=== PATIENT | female | born 1960 | race Caucasian/White ===

== ENCOUNTER 2021-05-25 13:17 | Outpatient (CLI) | payer MEDICARE, SELFPAY ==
--- NOTE | ~2021-05-25 | MM_ITS ---
EXAMINATION: MM screening jenni BI w winsome HISTORY: Screening mammogram TECHNIQUE: Craniocaudal and mediolateral oblique 3-D tomosynthesis images were obtained and synthetic 2-D images were generated. CAD analysis was submitted and interpreted. COMPARISON: No prior mammogram is available for comparison at this institution. BREAST PARENCHYMAL COMPOSITION: The breasts are almost entirely fatty. FINDINGS: There is no evidence of suspicious mass, calcification, or architectural distortion to sugg est malignancy in either breast. There has been no suspicious interval change. IMPRESSION: 1. No mammographic evidence of malignancy. 2. Recommend routine screening mammography in one year. BI-RADS Category 1: Negative Reviewed, dictated and finalized at location A.
== END 2021-05-25 13:18 | disposition home or self-care (01) ==
LOC: ANHIMG 13:21
PROVIDERS: PCP Emergency Medicine; Visit Provider Emergency Medicine
DX: Z12.31 Encounter for screening mammogram for malignant neoplasm of breast (principal)
CPT/HCPCS: 77063; 77067

== ENCOUNTER 2022-04-19 13:34 | Outpatient (CLI) | payer MEDICARE, SELFPAY ==
--- NOTE | ~2022-04-19 | DEXA_ITS ---
Bone Density Report Name: NAVEEN SANDERS Age: 61 Sex: Female Ethnicity: White Date of : 1960 Indication: osteopenia; prior fracture; hysterectomy; postmenopausal Referring Provider: JACKELYN CADENA Study: Bone densitometry was performed. Exam Date: April 19, 2022 Accession number: [id number] Bone Density: Region BMD T-score Z-score Classification AP Spine(L1, L2, L3) 0.852 -1.5 -0.2 Osteopenia Femoral Neck (Left) 0.710 -1.3 0.0 Osteopenia Total Hip (Left) 0.766 -1.4 -0.5 Osteopenia Femoral Neck (Right) 0.750 -0.9 0.4 Normal Total Hip (Right) 0.765 -1.5 -0.5 Osteopenia Total Hip Mean 0.765 -1.5 -0.5 Osteopenia World Health Organization criteria for BMD impression classify patients as: Normal (T-score at or above -1.0), Osteopenia (T-score between -1.0 and -2.5), or Osteoporosis (T-score at or below -2.5). 10-year Fracture Risk(1): Major Osteoporotic Fracture 13% Hip Fracture 0.9% Reported Risk Factors: [place] (), Neck BMD=0.710, BMI=26.1, previous fracture (1) FRAX(R) Version 3.08. Fracture probability calculated for an untreated patient. Fracture probability may be lower if the patient has received treatment. Previous Exams: Region Exam Age BMD T-score BMD Change BMD Change Date g/cm2 vs Baseline vs Previous AP Spine (L1-L3) 04/19/2022 61 0.852 -1.5 -0.035 (-3.9%) -0.035 (-3.9%) 11/01/2015 55 0.886 -1.2 Total Hip(Left) 04/19/2022 61 0.766 -1.4 -0.103 (-11.9% -0.103 (-11.9% 11/01/2015 55 0.869 -0.6 Total Hip(Right) 04/19/2022 61 0.765 -1.5 -0.126 (-14.1% -0.126 (-14.1% 11/01/2015 55 0.890 -0.4 *Denotes significance at 95% confidence level, LSC for AP Spine = 0.022 g/cm2, LSC for Total Hip = 0.027 g/cm2 Clinical Information Provided by Patient: Has had a low trauma fracture Has used the following medications: Vitamin D, Calcium Has the following medical conditions: Hysterectomy Patient maximum height was 62.5 Menopause Age: 33 Drinks caffeinated beverages Onset of menses at age 16 Number of children 3 Impression: The patient has low bone mass, based on the Total Spine T-score. The patient has an estimated ten-year risk of hip fracture of 0.9% and an estimated ten-year risk of major fracture of 13%, based on the WHO FRAX algorithm. The patient has risk factors, including: previous fracture. The BMD for the AP Spine (L1-L3) decreased, changing by -3.9% since the last DXA exam. The BMD for t
== END 2022-04-19 13:35 | disposition home or self-care (01) ==
PROVIDERS: PCP Emergency Medicine; Visit Provider Emergency Medicine
DX: M85.851 Other specified disorders of bone density and structure, right thigh (principal); M85.852 Other specified disorders of bone density and structure, left thigh; M85.88 Other specified disorders of bone density and structure, other site
CPT/HCPCS: 77080

== ENCOUNTER 2022-09-04 09:26 | Outpatient (CLI) | payer MEDICARE, SELFPAY ==
--- NOTE | ~2022-09-04 | CT_ITS ---
EXAMINATION: CT lung screening DATE: 09/04/2022 10:08 INDICATION: HX OF NICOTINE DEPENDENCE TECHNIQUE: Computed tomography (CT) of the chest was performed without intravenous contrast. Addition al 3D reconstructions utilizing coronal maximum intensity projection (MIP) were performed. Automated exposure control and iterative reconstruction technique were employed. The dose-length product was 60 .48 mGy-cm. COMPARISON: None FINDINGS: Mild emphysema. There is peripheral irregular septal line thickening with mild associated groundglass opacity no evident more nodular opacities or pleural effusion. Heart size is normal. No pericardial effusion. In both lungs most prominent in the right upper and right lower lobes. No suspicious pulmon tristan nodules, pleural effusion or pneumothorax. Heart size is normal. Ectatic ascending thoracic aorta measuring up to 3.8 cm maximal diameter. No pathologically enlarged thoracic lymphadenopathy. Gallbl adder is nonvisualized and likely surgically absent. Visualized upper abdomen is otherwise unremarkab le. Mild thoracic spondylosis. IMPRESSION: 1. Lung-RADS category 1: Negative. Continue annual screening with noncontrast low-dose chest CT in 12 months. 2. Mild emphysema with mild peripheral fine reticular and groundglass opacities which could represent atelectasis/scarring, chronic interstitial fibrosis with either UIP or NSIP pattern or mild pulmonar y edema. Reviewed, dictated and finalized at location A. IMPRESSION: 1. Lung-RADS category 1: Negative. Continue annual screening with noncontrast l ow-dose chest CT in 12 months. 2. Mild emphysema with mild peripheral fine reticular and groundglass opacities which could represent atelectasis/scarring, chronic interstitial fibrosis with either UIP or NSIP pattern or mild pulmonary edema.
== END 2022-09-04 09:27 | disposition home or self-care (01) ==
PROVIDERS: PCP Emergency Medicine; Visit Provider Emergency Medicine
DX: Z12.2 Encounter for screening for malignant neoplasm of respiratory organs (principal); Z87.891 Personal history of nicotine dependence; J43.9 Emphysema, unspecified
CPT/HCPCS: 71271

== ENCOUNTER 2022-12-14 14:15 | Outpatient (CLI) | payer MEDICARE, SELFPAY ==
[2022-12-14 14:27] LABS: Basophils Absolute Auto 0.1 K/mm3 (0.0-0.1); Basophils Percent Auto 1.3 % (0.2-1.2); Eosinophils Absolute Auto 0.6 K/mm3 (0-0.3); Eosinophils Percent Auto 7.1 % (0-4.4); Hemoglobin 12.7 g/dL (12.0-15.0); Immature Granulocyte Absolute 0.02 K/mm3 (0.00-0.031); Immature Granulocyte Percent A 0.2 % (0-0.5); Lymphocytes Percent Auto 30.1 % (18.3-44.2); Mean Corpuscular HGB Conc 32.6 g/dl (32-36); Mean Corpuscular Hemoglobin 34.4 pg (26-34); Mean Corpuscular Volume 105.7 fl (80-100); Mean Platelet Volume 9.8 fl (7.4-10.4); Monocytes Absolute Auto 0.7 K/mm3 (0.1-0.6); Monocytes Percent Auto 8.2 % (2.6-8.5); Neutrophils Absolute Auto 4.6 K/mm3 (1.3-6.7); Neutrophils Percent Auto 53.1 % (45.5-73.1); Platelet Count Result 329 k/mm3 (150-375); Red Blood Count 3.69 M/mm3 (4.2-5.4); Red Cell Distribution Width 13.1 % (11.5-14.5); White Blood Count 8.7 K/mm3 (4.5-10.0)
[2022-12-14 15:54] LABS: Alanine Aminotransferase 28 U/L (6-35); Albumin Level 4.6 g/dL (3.5-5.1); Alkaline Phosphatase 150 U/L (38-126); Anion Gap 7 mmol/L (8-16); Aspartate Amino Transferase 38 U/L (14-36); Bilirubin,Total 0.4 mg/dL (0.2-1.3); Blood Urea Nitrogen 10 mg/dL (7-17); Calcium 9.7 mg/dL (8.4-10.2); Carbon Dioxide 33 mmol/L (22-30); Chloride 101 mmol/L (98-107); Estimated Glomerular Filt Rate > 60; Glucose 109 mg/dL (65-110); Potassium 4.3 mmol/L (3.4-5.0); Sodium 141 mmol/L (137-145)
[2022-12-14 16:25] LABS: Thyroid Stimulating Hormone 0.562 uIU/mL (0.465-4.680)
[2022-12-14 17:18] LABS: Folic Acid > 20.0 ng/mL (2.76->20)
[2022-12-17 10:51] LABS: Methylmalonic Acid 60 nmol/L (87-318)
== END 2022-12-14 14:16 | disposition home or self-care (01) ==
LOC: ANHLAB 14:16
PROVIDERS: PCP Emergency Medicine; Visit Provider Internal Medicine Hematology & Oncology
DX: D75.89 Other specified diseases of blood and blood-forming organs (principal)
CPT/HCPCS: 36415; 80053; 82607; 82746; 83921; 84443; 85025

== ENCOUNTER 2022-12-22 07:17 | Outpatient (CLI) | payer MEDICARE, SELFPAY ==
--- NOTE | ~2022-12-22 | US_ITS ---
Abdominal Sonogram: Real-time sonographic imaging of the abdomen was performed. Clinical History: Macrocytosis Findings: The liver appears normal with no evidence of mass lesion or bile duct dilatation. Main por jak vein demonstrates normal direction of flow. The spleen is normal in size without evidence of foca l lesion. The gallbladder is absent, compatible prior cholecystectomy. The common bile duct measures 8 mm. The visualized pancreas, aorta, and IVC are unremarkable. The right kidney measures 9.7 cm i n length and the left kidney measures 10.5 cm. There is no hydronephrosis or renal calculus. Impression: Mildly dilated common bile duct, possibly related to prior cholecystectomy. No other significant findings. Reviewed, dictated and finalized at location . OYEE COMMUNICATIONS SPECIALIST Impression: Mildly dilated common bile duct, possibly related to prior cholecystectomy. No other significant findings.
== END 2022-12-22 07:18 | disposition home or self-care (01) ==
PROVIDERS: PCP Emergency Medicine; Visit Provider Internal Medicine Hematology & Oncology
DX: D75.89 Other specified diseases of blood and blood-forming organs (principal)
CPT/HCPCS: 76700

== ENCOUNTER 2022-12-28 16:05 | Outpatient (CLI) | payer MEDICARE, SELFPAY ==
--- NOTE | ~2022-12-28 | MM_ITS ---
EXAMINATION: MM screening jenni BI w winsome HISTORY: Screening mammogram TECHNIQUE: Craniocaudal and mediolateral oblique 3-D tomosynthesis images were obtained and synthetic 2-D images were generated. CAD analysis was submitted and interpreted. COMPARISON: 05/25/2021 bilateral screening mammogram BREAST PARENCHYMAL COMPOSITION: The breasts are almost entirely fatty. FINDINGS: There is no evidence of suspicious mass, calcification, or architectural distortion to sugg est malignancy in either breast. There has been no suspicious interval change. IMPRESSION: 1. No mammographic evidence of malignancy. 2. Recommend routine screening mammography in one year. BI-RADS Category 1: Negative Reviewed, dictated and finalized at location A. ICAL SCHEDULER
== END 2022-12-28 16:06 | disposition home or self-care (01) ==
LOC: ANHIMG 16:08
PROVIDERS: PCP Emergency Medicine; Visit Provider Emergency Medicine
DX: Z12.31 Encounter for screening mammogram for malignant neoplasm of breast (principal)
CPT/HCPCS: 77063; 77067

== ENCOUNTER 2023-03-28 10:34 | Outpatient (CLI) | payer MEDICARE, SELFPAY ==
--- NOTE | ~2023-03-28 | XR_ITS ---
Right Hand Technique: PA, oblique, and lateral views were obtained. Clinical History: Pain Findings: Suspected nondisplaced impacted fracture at the proximal shaft of the fifth metacarpal. No other fracture or dislocation seen. Joint spaces are preserved. Soft tissues are unremarkable. Impression: Suspected nondisplaced transverse, impacted fracture of the proximal most shaft of the fifth metacarp al. Reviewed, dictated and finalized at location . Impression: Suspected nondisplaced transverse, impacted fracture of the proximal most shaft of the fifth metacarpal.
== END 2023-03-28 10:35 | disposition home or self-care (01) ==
LOC: ANHASCIMG 10:38
PROVIDERS: PCP Emergency Medicine; Visit Provider Emergency Medicine
DX: M25.531 Pain in right wrist (principal)
CPT/HCPCS: 73120

== ENCOUNTER 2023-10-27 10:53 | Outpatient (CLI) | payer MEDICARE, SELFPAY ==
--- NOTE | ~2023-10-27 | CT_ITS ---
CT Scan of the Chest without Contrast: Clinical Indication: Lung cancer screening, tobacco use Technique: Contiguous sections were acquired throughout the chest without intravenous contrast. Dose reduction technique was used on this scan by utilizing automated exposure control and iterative recon struction technique. The dose-length product (DLP) was 57.12 mGy-cm. COMPARISON: 09/04/2022 Findings: There is no evidence of any significant mediastinal, hilar or axillary lymphadenopathy. The mediastin al soft tissues appear normal. There is no evidence of pleural or pericardial effusion. There is stable chronic interstitial change lung worse than left, with peripheral distribution. There is associated biapical scarring. No distinct pulmonary nodule evident. Images through the upper abdomen reveal no abnormalities. Impression: Lung RADS 1: Negative. 12 month follow-up screening CT advised. Stable chronic pulmonary interstitial disease. Reviewed, dictated and finalized at [facility]. E SCALPER OPERATOR Impression: Lung RADS 1: Negative. 12 month follow-up screening CT advised. Stable chronic pulmonary interstitial disease.
== END 2023-10-27 10:54 | disposition home or self-care (01) ==
PROVIDERS: PCP Emergency Medicine; Visit Provider Emergency Medicine
DX: Z12.2 Encounter for screening for malignant neoplasm of respiratory organs (principal); Z87.891 Personal history of nicotine dependence
CPT/HCPCS: 71271

== ENCOUNTER 2024-01-14 09:31 | Outpatient (CLI) | payer MEDICARE, SELFPAY ==
--- NOTE | ~2024-01-14 | MM_ITS ---
EXAMINATION: MM screening jenni BI w winsome HISTORY: Screening mammogram TECHNIQUE: Craniocaudal and mediolateral oblique 3-D tomosynthesis images were obtained and synthetic 2-D images were generated. CAD analysis was submitted and interpreted. COMPARISON: 12/28/2022, 05/25/2021 BREAST PARENCHYMAL COMPOSITION:Not Dense. The breasts are almost entirely fatty FINDINGS: No suspicious mass, calcification, or architectural distortion are identified in either mitzy ast to suggest malignancy. There has been no suspicious interval change. IMPRESSION: No mammographic evidence of malignancy. Recommend routine screening mammography in one year. BI-RADS Category 1: Negative Reviewed, dictated and finalized at location . CIAL CLERK
== END 2024-01-14 09:32 | disposition home or self-care (01) ==
LOC: ANHIMG 09:34
PROVIDERS: PCP Emergency Medicine; Visit Provider Emergency Medicine
DX: Z12.31 Encounter for screening mammogram for malignant neoplasm of breast (principal)
CPT/HCPCS: 77063; 77067

== ENCOUNTER 2024-07-18 09:15 | Outpatient (CLI) | payer MEDICARE, MEDICAID, SELFPAY ==
--- NOTE | ~2024-07-18 | DEXA_ITS ---
Bone Density Report Name: NAVEEN SANDERS Age: 63 Sex: Female Ethnicity: White Date of : 1960 Indication: osteopenia; height loss; hysterectomy; Referring Provider: JACKELYN CADENA Study: Bone densitometry was performed. Exam Date: July 18, 2024 Accession number: [id number] Bone Density: Region BMD T-score Z-score Classification AP Spine(L1, L2, L4) 0.924 -1.0 0.5 Normal Femoral Neck (Left) 0.677 -1.6 -0.2 Osteopenia Total Hip (Left) 0.757 -1.5 -0.5 Osteopenia Femoral Neck (Right) 0.710 -1.2 0.1 Osteopenia Total Hip (Right) 0.746 -1.6 -0.6 Osteopenia Total Hip Mean 0.751 -1.6 -0.6 Osteopenia World Health Organization criteria for BMD impression classify patients as: Normal (T-score at or above -1.0), Osteopenia (T-score between -1.0 and -2.5), or Osteoporosis (T-score at or below -2.5). 10-year Fracture Risk(1): Major Osteoporotic Fracture 8.5% Hip Fracture 0.8% Reported Risk Factors: [place] (), Neck BMD=0.677, BMI=26.9 (1) FRAX(R) Version 3.08. Fracture probability calculated for an untreated patient. Fracture probability may be lower if the patient has received treatment. Previous Exams: Region Exam Age BMD T-score BMD Change BMD Change Date g/cm2 vs Baseline vs Previous AP Spine (L1-L2,L4) 07/18/2024 63 0.924 -1.0 -0.039 (-4.1%) -0.039 (-4.1%) 11/01/2015 55 0.963 -0.6 Total Hip(Left) 07/18/2024 63 0.757 -1.5 -0.112 (-12.9% -0.009 (-1.2%) 04/19/2022 61 0.766 -1.4 -0.103 (-11.9% -0.103 (-11.9% 11/01/2015 55 0.869 -0.6 Total Hip(Right) 07/18/2024 63 0.746 -1.6 -0.144 (-16.2% -0.019 (-2.5%) 04/19/2022 61 0.765 -1.5 -0.126 (-14.1% -0.126 (-14.1% 11/01/2015 55 0.890 -0.4 *Denotes significance at 95% confidence level, LSC for AP Spine = 0.022 g/cm2, LSC for Total Hip = 0.027 g/cm2 Clinical Information Provided by Patient: Has used the following medications: Vitamin D, Calcium Has the following medical conditions: Hysterectomy Patient maximum height was 64 Menopause Age: 33 No regular weight bearing exercise Drinks caffeinated beverages Onset of menses at age 16 Number of children 3 Impression: The patient has low bone mass, based on the Right Total Hip T-score. The patient has an estimated ten-year risk of hip fracture of 0.8% and an estimated ten-year risk of major fracture of 8.5%, based on the WHO FRAX algorithm. The BMD for the AP Spine (L1-L2,L4) decreased, karrie
== END 2024-07-18 09:16 | disposition home or self-care (01) ==
PROVIDERS: PCP Emergency Medicine; Visit Provider Emergency Medicine
DX: M85.89 Other specified disorders of bone density and structure, multiple sites (principal)
CPT/HCPCS: 77080

== ENCOUNTER 2025-04-20 00:58 | Day surgery (SDC) | payer MEDICARE, MEDICAID, SELFPAY ==
[2025-04-16 11:32] VITALS: BMI 26.9
--- OUTSIDE RECORDS SUMMARY | 2025-04-20 01:02 | XMS_ITS | Encounter Summary ---
Author Organization [facility] Address [address] [place] [address] Care Team Providers Care Intermodal Owner Operator Truck Driver Name Role Phone Dave Barrios MD Primary Care Provider [phone] Encounter Details Date Type Department Care Team (Late st Contact Info) Description 06/23/2024 Telephone [facility] - Cardiac Electronics Assembler [address] [place] [id number] Beverley Black MD [address] [place] [address] [place] [id number] Social History Tobacco Use Types Packs/Day Years Used Date Smoking Tobacco: Former Smokeless Tobacco: Never Alcohol Use Standard Drinks/Week Comments Not Currently 0 (1 standard drink = 0.6 oz pur e alcohol) occasionally AUDIT-C Answer Date Recorded Q1: How often do you have a drink containing alcohol? Never 06/23/2024 Q2: How many drinks containi ng alcohol do you have on a typical day when you are drinking? Patient does not drink Q3: How often do you have si x or more drinks on one occasion? 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 Never 06/23/2024 5:55 AM CDT Francesca John RN Q2: How many drinks containing alcohol do you have on a typical day when you are drinking? Patient does not drink 06/23/2024 5:55 AM Francesca Caceres RN Q3: How often do you have six or more drinks on one occasion? Never 06/23/2024 5:55 AM Francesca Caceres RN * Audit-C Score Answer Date of Assessment Author 0 06/23/2024 5:55 AM Francesca Caceres RN documented as of this encounter Plan of Treatment Not on file documented as of this encounter Visit Diagnoses Not on filedocumented in this encounter Care Teams Intermodal Owner Operator Truck Driver Relationship Specialty Start Date End Date Dave Barrios MD [address] [phone] PCP - General Family Medicine 11/29/15 documented as of this encounter
--- OUTSIDE RECORDS SUMMARY | 2025-04-20 01:02 | XMS_ITS | Clinical Summary ---
Author Organization [facility] Address [address] [place] [address] Care Team Providers Care Manugrapher Name Role Phone Dave Barrios MD Primary Care Provider [phone] Allergies No known active allergies Medications alendronate (FOSAMAX) 35 mg tablet PLEASE SEE ATTACHED FOR DETAILED DIRECTIONS 2 Active ergocalciferol (VITAMIN D2) 50,000 unit capsule take 1 capsule by oral route every week 2 Active rosuvastatin (CRESTOR) 10 mg tablet Take 10 mg by mouth daily. 2 Active levothyroxine 88 mcg tablet Take 88 mcg by mouth daily. 3 Active HYDROcodone-ac etaminophen (NORCO) 7.5-325 mg Tablet Take 1 Tablet by mouth. 3 Active umeclidinium (Incruse Ellipta) 62.5 mcg/actuation Disk with Device Take 1 Puff by inhalation every 24 hours. 0 Active fluticasone propion-salmet Andreia 113-14 mcg/actuation Aerosol Powdr Breath Activated INHALE 1 PUFF BY MOUTH TWICE DAILY APPROXIMATELY 12 HOURS APART AT SAME TIME EACH DAY 2 Active Active Problems No known active problems Family History Relation Name Status Comments Brother Alive Mother Alive Sister 1 Alive Sister 2 Social History Tobacco Use Types Packs/Day Years Used Date Smoking Tobacco: Former Cigarettes 1 45 0 11/19/1971 - 11/19/2016 Tobacco Cessation:Counseling Given: Not Answered Comments Unknown Sex and Gender Information Value Date Recorded Sex Assigned at Not on file Legal Sex Female 2:07 PM CDT Gender Identity Not on file Sexual Orientation Not on file Last Filed Vital Signs Vital Sign Reading Time Taken Comments Blood Pressure 122/71 01/02/2023 11:05 AM RECRUITMENT CONSULTANT Pulse 61 01/02/2023 11:05 AM RECRUITMENT CONSULTANT Temperature 36.8 C (98.3 F) 01/02/2023 11:05 AM RECRUITMENT CONSULTANT Respiratory Rate 16 01/02/2023 11:05 AM RECRUITMENT CONSULTANT Oxygen Saturation 99% 01/02/2023 11:05 AM RECRUITMENT CONSULTANT Inhaled Oxygen Concentration - - Weight 64 kg (141 lb 1.6 oz) 01/02/2023 11:05 AM RECRUITMENT CONSULTANT Height 157.5 cm (5' 2) 12/14/2022 1:22 PM RECRUITMENT CONSULTANT Body Mass Index 25.81 12/14/2022 1:22 PM RECRUITMENT CONSULTANT Plan of Treatment Health Maintenance Due Date Last Done Comments DTAP/TDAP/TD VACCINES (1 - Tdap) 1981 HPV/Cotest (21-29) 1983 CERVICAL CANCER SCREENING 1992 HPV/Cotest (30-65) 1992 PAP SMEAR 1992 BREAST CANCER SCREENING 2002 COLORECTAL SCREENING 2007 Colorectal Cancer Screening 2007 FIT-DNA Q 3 years 2007 FIT/FOBT Q 1 year 2007 Flex Sig/CT Colonography Q 5 years 2007 ZOSTER VACCINE (1 of 2) 2012 INFLUENZA VACCINE (#1) 2024 RSV VACCINE (60+ or ) (1 - 1-dose 75+ series) 2037 Insurance [facility] [id number] [address] [id number] Care Teams Manugrapher Relationship Specialty Start Date End Date Dave Barrios MD [address] [place] [address] PCP - General Family Practice 12/14/22
--- OUTSIDE RECORDS SUMMARY | 2025-04-20 01:02 | XMS_ITS | Clinical Summary ---
Author Organization [facility] Address [address] [facility] [place] [address] Care Team Providers Care Smalltalk Developer Name Role Phone Dave Barrios MD Primary Care Provider [phone] Source Comments [facility],non-owned Affiliates and Associated Physician Practices is amultiple site organization consisting of ambulatory clinics and hospital sitesin [place], [place], [place] and [place]. This disclosure is being madepursuant to the Care Everywhere program and may not contain all information available regarding this patient. Last updated 18.[facility] Allergies Active Allergy Reactions Criticality Noted Date Comments Codeine Other 09/23/2015 Medications * Be aware that medications may not be up to date on this document. Alwaysverify current medications with the patient. FENOFIBRATE POIndications:Prim tristan osteoarthritis of right knee,Primary osteoarthritis of left knee Take 160 mg by mouth Active levothyroxine (Synthroid) 100 MCG tabletIndications: Primary osteoarthritis of right knee,Primary osteoarthritis of left knee Take 1 (one) tablet by mouth daily before breakfast Active albuterol HFA (VENTOLIN HFA) 108 (90 BASE) MCG/ACT inhalerIndications :Primary osteoarthritis of right knee,Primary osteoarthritis of left knee Inhale 2 (two) puffs by mouth every 6 hours as needed 05/28/20 17 Active INCRUSE ELLIPTA 62.5 MCG/INH inhaler Inhale 1 (one) puff by mouth once daily 10/06/20 20 Active vitamin D, ergocalciferol, (Drisdol) 1.25 MG (44317 UT) capsule Take 1 (one) capsule by mouth every 7 days Active multivitamin daily tablet Take 1 (one) tablet by mouth daily with food Active cyanocobalamin (Vitamin B-12) 1000 MCG tablet Take 1 (one) tablet by mouth once daily Active calcium carbonate (Caltrate) 600 MG tablet Take 1 (one) tablet by mouth daily with food Active modafinil (Provigil) 100 MG tablet Take 1 (one) tablet by mouth every morning Active ARIPiprazole (Abilify) 10 MG tablet Take 1 (one) tablet by mouth once daily Active Cymbalta 60 MG capsule Take 1 (one) capsule by mouth every 24 hours 04/03/20 Active acetaminophen (Tylenol) 500 MG tablet Take 2 (two) tablets by mouth every 8 hours Maximum allowable Acetaminophen amount = 4 Grams (4000 mg) / 24 hours. 06/24/20 Active polyethylene glycol 3350 (Miralax) 17 g packet Take 17 (seventeen) g by mouth once daily 06/24/20 Active Additional Information Patient not taking.Reported on 07/09/2024 methocarbamol (Robaxin) 500 MG tablet Take 1 (one) tablet by mouth every 6 hours as needed for Muscle Spasms 20 tablet 06/24/20 Active Additional Information Patient not taking.Reported on 07/09/2024 HYDROcodone-acetam inophen ([place]) 7.5-325 MG tablet TAKE 1 TABLET BY MOUTH THREE TIMES A DAY NEEDED FOR PAIN. AVOID DRIVING OR OPERATING MACHINES Active oxyCODONE, immediate release, (Roxicodone) 5 MG tabletIndications: Other acute postprocedural pain TAKE ONE TABLET BY MOUTH EVERY 4 HOURS NEEDED FOR PAIN 42 tablet 06/24/20 24 Active Additional Information Patient not taking.Reported on 07/09/2024 methocarbamol (Robaxin) 500 MG tablet TAKE ONE TABLET BY MOUTH EVERY 6 HOURS NEEDED FOR MUSCLE SPASMS 20 tablet 06/24/20 24 025 Active Active Problems Problem Noted Date Diagnosed Date SVT (supraventricular tachycardia) 06/24/2024 Closed displaced fracture of shaft of left clavicle, initial encounter 06/23/2024 Primary osteoarthritis of left knee 05/08/2016 Primary osteoarthritis of right knee 05/08/2016 Left hip pain 01/26/2016 Bilateral shoulder pain 12/07/2015 Leukopenia 07/12/2015 Macrocytic anemia 07/12/2015 Family History Medical History Relation Name Comments Anxiety Disorder Maternal Grandmother Depression Maternal Grandmother Diabetes - Type 1 Mother Diabetes - Type 1 Sister Relation Name Status Comments Maternal Grandmother Mother Sister Social History Tobacco Use Types Packs/Day Years Used Date Smoking Tobacco: Former Smokeless Tobacco: Never Tobacco Cessation:Counseling Given: Not Answered Alcohol Use Standard Drinks/Week Comments Not Currently [...] Answer Date Recorded Patient Health Questionnaire-2 Score 0 08/06/2024 Comments No Sex and Gender Information Value Date Recorded Sex Assigned at Not on file 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 Gender Identity Not on file Sexual Orientation Not on file Last Filed Vital Signs Vital Sign Reading Time Taken Comments Blood Pressure 141/72 06/24/2024 11:19 AM CDT Pulse 69 06/24/2024 11:19 AM CDT Temperature 36.6 C (97.8 F) 06/24/2024 11:19 AM CDT Respiratory Rate 16 06/24/2024 11:19 AM CDT Oxygen Saturation 98% 06/24/2024 11:19 AM CDT Inhaled Oxygen Concentration - - Weight 66.7 kg (147 lb) 08/06/2024 4:55 PM CDT Height 157.5 cm (5' 2) 08/06/2024 4:55 PM CDT Body Mass Index 26.89 08/06/2024 4:55 PM CDT Plan of Treatment Health Maintenance Due Date Last Done Comments COLOGUARD (AGES 45-75) - COLON CA SCREENING 1962 COLON MONITORING 1962 COLONOSCOPY - COLON CA SCREENING 1962 CT COLONOGRAPHY - COLON CA SCREENING 1962 Colorectal Cancer Screening 1962 FIT - COLON CA SCREENING 1962 FLEX SIG - COLON CA SCREENING 1962 LIPID TESTING 1962 MAMMOGRAM 1962 PAP SMEAR 1962 HIV SCREENING 1977 HEPATITIS C SCREENING 07/17/1980 DTAP/TDAP/TD VACCINES (1 - Tdap) 1981 PNEUMOCOCCAL VACCINE 50+ (1 of 2 - PCV) 1981 ZOSTER VACCINE (1 of 2) 2012 Respiratory Syncytial Virus (RSV) Vaccine Pt: or over 60 yrs (1 - Risk 60-74 years 1-dose series) 2022 COVID-19 VACCINE (3 - season) 2024 03/08/2021, 02/15/2021 DEPRESSION SCREENING 11/19/2024 06/18/2024 MEDICARE AWV CALENDAR YEAR 2024 INFLUENZA VACCINE (Season Ended) 2025 02/06/2023, 09/22/2020, 09/10/2018, Additional history exists SCREENING FOR DIABETES 06/24/2027 , 06/24/2024, 06/24/2024, Additional history exists HEPATITIS B VACCINE Aged Out No longe r eligible based on patient's age to complete this topic HIB VACCINE Aged Out No longer eligi ble based on patient's age to complete this topic HPV VACCINE Aged Out No longer eligi ble based on patient's age to complete this topic MENINGOCOCCAL (Group B) VACCINE SHARED DECISION-MAKING Aged Out No longer eligible based on patient's age to complete this topic MENINGOCOCCAL GROUPS A/C/Y/W VACCINE Aged Out No longer eligible based on patient's age to complete this topic Medical Devices Implanted Type Area Truck Switcher Device Identifier Shelf Expiration Date Model / Serial / Lot Graft Bone Ntr Ac Cnxs Dbm 1ml Ptty Syr - [id number] Implanted:Qty: 1 on 06/23/2024 by Donnell Rivera MD at [facility] Left: Clavicle [employer] 05/16/2025 02-3000-010 / [id number] / [id number] [employer] 2.7mm Inferior Distal Clavicle Plate Implanted:Qty: 1 on 06/23/2024 by Donnell Rivera MD at [facility] Left: Clavicle [employer] [id number] / / Screw 2.7mm 4.5mm 11mm T8 Drvr 2 End Drl Implanted:Qty: 2 on 06/23/2024 by Donnell Rivera MD at [facility] Left: Clavicle [employer] [id number] / / Screw 2.7mm 4.5mm 13mm T8 Drvr 2 End Drl Implanted:Qty: 1 on 06/23/2024 by Donnell Rivera MD at [facility] Left: Clavicle [employer] [id number] / / Screw 2.7mm 4.5mm 14mm T7 Slfret Scrdrvr Implanted:Qty: 1 on 06/23/2024 by Donnell Rivera MD at [facility] Left: Clavicle [employer] [id number] / / Screw 2.7mm 4.5mm 18mm T8 Slf-Tap Cortx Implanted:Qty: 3 on 06/23/2024 by Donnell Rivera MD at [facility] Left: Clavicle [employer] [id number] / / Screw 4mm 4.5mm 22mm T8 Ft Slfret Implanted:Qty: 1 on 06/23/2024 by Donnell Rivera MD at [facility] Left: Clavicle [employer] [id number] / / Screw 2.7mm 4.5mm 10mm T8 Slf-Tap Cortx Implanted:Qty: 1 on 06/23/2024 by Donnell Rivera MD at [facility] Left: Clavicle [employer] [id number] / / Screw 2.7mm 4.5mm 17mm T8 Slf-Tap Cortx Implanted:Qty: 1 on 06/23/2024 by Donnell Rievra MD at [facility] Left: Clavicle [employer] [id number] / / Explanted Type Area Truck Switcher Device Identifier Shelf Expiration Date Model / Serial / Lot Screw 2.7mm 4.5mm 14mm T7 Slfret Scrdrvr Explanted:Qty: 1 on 06/23/2024 at [facility] Left: Clavicle [employer] [id number] / / Procedures Procedure Name Priority Date/Time Associated Diagnosis Comments BASIC METABOLIC PANEL (CALCIUM TOTAL) AM Draw 06/24/2024 9:59 AM CDT from Last 3 Months or Most Recently Relevant to Health Maintenance Results * (ABNORMAL) BASIC METABOLIC PANEL (CALCIUM TOTAL) (06/24/2024 9:59 AM CDT) BUN 17 7 - 26 mg/dL 06/24/2024 10:34 AM [facility] Creatinine 0.63 0.56 - 0.96 mg/dL 06/24/2024 10:34 AM [facility] Sodium 140 136 - 145 mmol/L 06/24/2024 10:34 AM [facility] Potassium 3.4(L) 3.5 - 4.5 mmol/L 06/24/2024 10:34 AM [facility] Chloride 106 98 - 107 mmol/L 06/24/2024 10:34 AM [facility] CO2 23 22 - 29 mmol/L 06/24/2024 10:34 AM [facility] Glucose 145(H) 70 - 115 mg/dL 06/24/2024 10:34 AM [facility] Calcium 8.9 8.4 - 10.2 mg/dL 06/24/2024 10:34 AM [facility] Anion Gap 11 6 - 16 06/24/2024 10:34 AM [facility] BUN/Creatinine Ratio 27(H) 7 - 23 06/24/2024 10:34 AM [facility] Osmolality Calculated 294 275 - 295 mOsm/kg 06/24/2024 10:34 AM [facility] eGFR by CKD-EPI >90 >=90 mL/min/1.7 3 m2 06/24/2024 10:34 AM [facility] Blood BLOOD SPECIMEN / Unknown Lab Venipuncture / Unknown 06/24/2024 9:59 AM CDT 06/24/2024 10:09 AM T us Donnell Rivera MD LAB - CHEMISTRY ORDERABLES Nicole noel Result [address] [address], [facility] [phone] from Last 3 Months or Most Recently Relevant to Health Maintenance Insurance MEDICAID - [facility] MEDICARE [facility] MANAGED MEDICARE ADV MEDICAID - [place] T[place] THIRD CONSTITUTION PARTY LIABILITY Member Subscriber Plan / Payer (Ef fective 2024-Present) Name:Naveen Paulson Viet Member ID:[id number] Relation to Subscriber:Self Name:Naveen Paulson Subscriber ID:[id number] Payer ID:Not on file Group ID:Not on file Type:Third Green Party Liability Address: [address] MANAGED MEDICARE [facility] MEDICAID - [place] TPL THIRD CONSTITUTION PARTY LIABILITY Care Teams Smalltalk Developer Relationship Specialty Start Date End Date Dave Barrios MD [address] [facility] [address] [facility] [address] [place] [id number] PCP - General Family Medicine 11/29/15
--- OUTSIDE RECORDS SUMMARY | 2025-04-20 01:02 | XMS_ITS | CONTINUITY OF CARE DOCUMENT ---
Author Name yohannes sheffield Address Unknown Organization [facility] Address [address] [place] [address] Phone [phone] Care Team Providers Care School Counsellor Name Role Phone Christy Perez MD Unavailable JACKELYN CADENA MD Unavailable [phone] JACKELYN CADENA MD Unavailable [phone] PROBLEMS Condition Status Date Provider Notes Shortness of breath active Santiago Phan Family History of Hypertension: active ? Jordyn Perez MD Chest pain-type to be determined active Gordo Perez MD Shortness of breath active Christy Perez MD Sleep apnea active Christy Perez MD Snoring active Christy Perez MD Tobacco abuse active Christy Perez MD Anxiety disorder generalized active Christy Perez MD ENCOUNTERS Date Type Provider Location Encounter Diag nosis - In-person encounter Office Visit Christy Perez MD [place] [facility] - In-person encounter Office Visit Christy Perez MD [facility] Family History of Hypertension:Chest pain-type to be determinedShortness of breathSleep apneaSnoringTobacco abuseAnxiety disorder generalized VITAL SIGNS Date Observation Value Provider Body Mass Index (Ratio) 32.24 kg/m2 Jordyn Perez MD blood pressure, diastolic 72 mm[Hg] Da zuleima Angel blood pressure, systolic 118 mm[Hg] Dac ia Angel oxygen saturation, oximetry 97 % Shari Angel respiratory rate E&M 16 /min Shari V oss pulse rate 90 /min Shari Angel weight E&M 182 [lb_av] Shari Angel height E&M 63 [in_i] Shari Angel Body Mass Index (Ratio) 31.99 kg/m2 Jordyn Perez MD blood pressure, resting Yes Ava Montelongo blood pressure, diastolic 82 mm[Hg] Dallin Yoondewayne Montelongo blood pressure, systolic 117 mm[Hg] Tiffanie Gibbons Reginald oxygen saturation, oximetry 97 % Abelardo Montelongo respiratory rate E&M 18 /min Sumeet Montelongo pulse rate 93 /min AbelardoMaya Majore girish weight E&M 180.6 [lb_av] Abelardo Pedrito dewayne height E&M 63 [in_i] Abelardo Dudley nsjono ALLERGIES No Known Drug Allergies HISTORY OF MEDICATION USE Medication Status Instructions Dates Provider Indications Com ments HYDROXYZINE HCL 25 MG ORAL TABLET active take one four times daily as needed 2 Shari Angel VITAMIN D3 1000 UNIT ORAL TABLET active ONE TAB BY MOUTH DAILY Abelardo Montelongo VITAMIN B-12 1000 MCG ORAL TABLET active One tablet daily Abelardo Montelongo HYDROCODONE-ACETA MINOPHEN 7.5-325 MG ORAL TABLET active twice daily Abelardo Montelongo RANITIDINE HCL 150 MG ORAL TABLET active ONE TAB TWICE DAILY Abelardo Montelongo LEVOTHYROXINE SODIUM 88 MCG ORAL TABLET active ONE TAB. DAILY Abelardo Montelongo FENOFIBRATE 160 MG ORAL TABLET active once daily Abelardo Montelongo CLONAZEPAM 0.5 MG ORAL TABLET completed twice daily as needed - 3 Shari Angel BUSPIRONE HCL 15 MG ORAL TABLET active twice daily Abelardo Montelongo AMITRIPTYLINE HCL 100 MG ORAL TABLET active ONE TAB. DAILY Abelardo Montelongo PERPHENAZINE 16 MG ORAL TABLET active twice daily Abelardo Montelongo SOCIAL HISTORY Date Observation Value Provider number of grandchildren Christy Perez MD social history reviewed E&M revi ewed - no changes required Christy Perez MD social history E&M S moking History: Jean sharma is a former smoker. Christy Perez MD smoking, year quit 2013 Shari Jess s number of years as a smoker 30 a Shari Angel cigarette use yes Shari Angel smoking status Former smoker Shari Angel social history E&M S moking History: Jean sharma is a former smoker. Christy Perez MD social history reviewed E&M revi ewed - no changes required Christy Perez MD number of years as a smoker 30 a Abelardo Montelongo smoking, year quit 2013 Abelardodewayne Montelongo cigarette use yes Abelardo Major dewayne smoking status Former smoker Abelardo Lobo FAMILY HISTORY Family Member Condition Full Sister Family History of Di abetes: Mother Family History of Hy pertension: Mother Family History of Di abetes: INSURANCE PROVIDERS Payer name Policy type / Coverage type [facility] HEALTH PLAN Medicaid [id number] ADVANCE DIRECTIVES Name Date DISCUSSED - NO DECISION MADE TREATMENT PLAN Date Name Performer Cardiology follow up Christy barreto MD Cardiology follow up:Plan for re peat testing Christy Perez MD Cardiology follow up :Likely related to COPD. May be related to CAD. If she has worsening or persistent sx, will need to do a cath. Christy Perez MD Cardiology follow up : A lreawhitney has quit. Christy Perez MD Cardiology:On med rx. Christy Perez MD Cardiology:Already has quit. Gordo Perez MD Cardiology:Pending workup. April Perez MD Cardiology:Long smok ing history, has had chest pains. Has anxiety disorder as well. Prior non-nuclear stress test which was negative. Ideally would like stress test with imaging, okay for nuclear lexiscan. Christy Perez MD Cardiology:Will bene fit from pulmonary eval, recommend she see a electrical lineman. Christy Perez MD Date Name STR - Adenosine HISTORY OF PROCEDURES Procedure Date Procedure Name Provider Procedure Notes S tatus EKG Christy Perez MD completed SNOMED-CT: [id number] Current Medications Documented Christy Perez MD completed Stress EKG Geovani Dorman MD complet ed Regadenoson, 4 units Christy barreto MD completed Cardiolite, 2 units Christy agustin MD completed SPECT Images Geovani Dorman MD compl eted EKG Christy Perez MD completed SNOMED-CT: [id number] Current Medications Documented Christy Perez MD completed FVC / MVV with bronchodilator - [id number] Christy Perez MD completed BLOOD COUNT HEMOGLOBIN Christy Perez MD completed FRC - 49852 Christy Perez MD completed SpO2 - 81047 Christy Perez MD completed DLCO - 19190 Christy Perez MD completed
--- OUTSIDE RECORDS SUMMARY | 2025-04-20 01:02 | XMS_ITS | Continuity of Care Document ---
Author Organization [facility] Address [address] [place] [address] [place] [address] Phone Care Team Providers Care Licensed Direct Entry Midwife Name Role Phone Dave Barrios MD Unavailable Unavailable Allergies, Adverse Reactions, Alerts Substance Reaction Status Criticality cat dander Red EyesItchingWatery eye Active No Information codeine Active No Information Medications Medication Instructions Dosage Effective Dates (start - stop) Status Comments buspirone 10 mg tablet take 1 tablet by oral route 2 times every day 10 MG - Active avoid driving or operate machines hydrocodone 7.5 mg-acetaminophen 325 mg tablet take 1 tablet by oral route 3 times every day as needed for pain as needed 1 tablet - Active PRN for pain, avoid driving or operate machines Lyrica 75 mg capsule take 1 capsule by oral route 2 times every day 75 MG - Active avoid driving or operate machines meloxicam 15 mg tablet take 1 tablet by oral route every day 15 MG - Active Incruse Ellipta 62.5 mcg/actuation powder for inhalation inhale 1 puff by inhalation route every day at the same time each day 62.5 MCG - Active Synthroid 88 mcg tablet take 1 tablet by oral route every other day - Active Synthroid 100 mcg tablet take 1 tablet by oral route every other day - Active rosuvastatin 10 mg tablet take 1 tablet by oral route every day 10 MG - Active albuterol sulfate HFA 90 mcg/actuation aerosol inhaler inhale 1 puff by inhalation route every 4 - 6 hours as needed as needed 1 puff - Active PRN for sob naloxone 0.4 mg/mL injection syringe inject 1 milliliter by intravenous route over once, may repeat at 2 to 3 minute intervals as needed - Active PRN for OD on hydrocodone Pepcid 40 mg tablet take 1 tablet by oral route every day 40 MG - Active Procedures Procedure Date OFFICE/OUTPATIENT VISIT, EST OFFICE/OUTPATIENT VISIT, EST PREV VISIT, EST, AGE 40-64 OFFICE/OUTPATIENT VISIT, EST OFFICE/OUTPATIENT VISIT, EST OFFICE/OUTPATIENT VISIT, EST OFFICE/OUTPATIENT VISIT, EST OFFICE/OUTPATIENT VISIT, EST OFFICE/OUTPATIENT VISIT, EST OFFICE/OUTPATIENT VISIT, EST OFFICE/OUTPATIENT VISIT, EST OFFICE/OUTPATIENT VISIT, EST OFFICE/OUTPATIENT VISIT, EST OFFICE/OUTPATIENT VISIT, EST OFFICE/OUTPATIENT VISIT, EST OFFICE/OUTPATIENT VISIT, EST OFFICE/OUTPATIENT VISIT, EST OFFICE/OUTPATIENT VISIT, EST PREV VISIT, EST, AGE 40-64 Nov- OFFICE/OUTPATIENT VISIT, EST OFFICE/OUTPATIENT VISIT, EST OFFICE/OUTPATIENT VISIT, EST OFFICE/OUTPATIENT VISIT, EST OFFICE/OUTPATIENT VISIT, EST OFFICE/OUTPATIENT VISIT, EST OFFICE/OUTPATIENT VISIT, EST OFFICE/OUTPATIENT VISIT, EST OFFICE/OUTPATIENT VISIT, EST OFFICE/OUTPATIENT VISIT, EST OFFICE/OUTPATIENT VISIT, EST OFFICE/OUTPATIENT VISIT, EST OFFICE/OUTPATIENT VISIT, EST OFFICE/OUTPATIENT VISIT, EST OFFICE/OUTPATIENT VISIT, EST OFFICE/OUTPATIENT VISIT, EST PREV VISIT, EST, AGE 40-64 OFFICE/OUTPATIENT VISIT, EST OFFICE/OUTPATIENT VISIT, EST OFFICE/OUTPATIENT VISIT, EST OFFICE/OUTPATIENT VISIT, EST OFFICE/OUTPATIENT VISIT, EST OFFICE/OUTPATIENT VISIT, EST OFFICE/OUTPATIENT VISIT, EST OFFICE/OUTPATIENT VISIT, EST OFFICE/OUTPATIENT VISIT, EST OFFICE/OUTPATIENT VISIT, EST PREV VISIT, EST, AGE 40-64 OFFICE/OUTPATIENT VISIT, EST OFFICE/OUTPATIENT VISIT, EST OFFICE/OUTPATIENT VISIT, EST OFFICE/OUTPATIENT VISIT, EST OFFICE/OUTPATIENT VISIT, EST OFFICE/OUTPATIENT VISIT, EST OFFICE/OUTPATIENT VISIT, EST OFFICE/OUTPATIENT VISIT, EST OFFICE/OUTPATIENT VISIT, EST OFFICE/OUTPATIENT VISIT, EST OFFICE/OUTPATIENT VISIT, EST OFFICE/OUTPATIENT VISIT, EST OFFICE/OUTPATIENT VISIT, EST OFFICE/OUTPATIENT VISIT, EST OFFICE/OUTPATIENT VISIT, EST OFFICE/OUTPATIENT VISIT, EST OFFICE/OUTPATIENT VISIT, EST OFFICE/OUTPATIENT VISIT, EST OFFICE/OUTPATIENT VISIT, EST OFFICE/OUTPATIENT VISIT, EST OFFICE/OUTPATIENT VISIT, EST Initial preventive exam OFFICE/OUTPATIENT VISIT, EST OFFICE/OUTPATIENT VISIT, EST PREV VISIT, EST, AGE 40-64 OFFICE/OUTPATIENT VISIT, EST OFFICE/OUTPATIENT VISIT, EST OFFICE/OUTPATIENT VISIT, EST OFFICE/OUTPATIENT VISIT, EST OFFICE/OUTPATIENT VISIT, EST OFFICE/OUTPATIENT VISIT, EST OFFICE/OUTPATIENT VISIT, EST OFFICE/OUTPATIENT VISIT, EST OFFICE/OUTPATIENT VISIT, EST OFFICE/OUTPATIENT VISIT, EST OFFICE/OUTPATIENT VISIT, EST OFFICE/OUTPATIENT VISIT, EST OFFICE/OUTPATIENT VISIT, EST PREV VISIT, EST, AGE 40-64 OFFICE/OUTPATIENT VISIT, EST OFFICE/OUTPATIENT VISIT, EST OFFICE/OUTPATIENT VISIT, EST OFFICE/OUTPATIENT VISIT, EST OFFICE/OUTPATIENT VISIT, EST OFFICE/OUTPATIENT VISIT, EST OFFICE/OUTPATIENT VISIT, EST OFFICE/OUTPATIENT VISIT, EST OFFICE/OUTPATIENT VISIT, EST OFFICE/OUTPATIENT VISIT, EST OFFICE/OUTPATIENT VISIT, EST OFFICE/OUTPATIENT VISIT, EST PREV VISIT, EST, AGE 40-64 OFFICE/OUTPATIENT VISIT, EST OFFICE/OUTPATIENT VISIT, EST OFFICE/OUTPATIENT VISIT, EST OFFICE/OUTPATIENT VISIT, EST OFFICE/OUTPATIENT VISIT, EST OFFICE/OUTPATIENT VISIT, EST OFFICE/OUTPATIENT VISIT, EST OFFICE/OUTPATIENT VISIT, EST OFFICE/OUTPATIENT VISIT, EST OFFICE/OUTPATIENT VISIT, EST OFFICE/OUTPATIENT VISIT, EST OFFICE/OUTPATIENT VISIT, EST PREV VISIT, EST, AGE 40-64 OFFICE/OUTPATIENT VISIT, EST OFFICE/OUTPATIENT VISIT, EST OFFICE/OUTPATIENT VISIT, EST OFFICE/OUTPATIENT VISIT, EST OFFICE/OUTPATIENT VISIT, EST OFFICE/OUTPATIENT VISIT, EST OFFICE/OUTPATIENT VISIT, EST OFFICE/OUTPATIENT VISIT, EST OFFICE/OUTPATIENT VISIT, EST OFFICE/OUTPATIENT VISIT, EST OFFICE/OUTPATIENT VISIT, EST OFFICE/OUTPATIENT VISIT, EST OFFICE/OUTPATIENT VISIT, NEW Advance Directives Directive Yes / No Effective Date File Name No Information Encounters Encounter Description Practice Location Reason(s) For Visit Diagnoses Date Provider Providers Copied on Encounter OFFICE/OUTPA TIENT VISIT, [facility], [address], [place], [place], [address], [place] tel:[phone] [facility] anxiety1 (chief complaint) pain (chief complaint) colonguard 1 (chief complaint) Chronic pain syndromeGeneralized Anxiety DisorderOther fecal abnormalities 5 Denis Oliver [address], [place], [place], [address] , [place]. tel:[phone] OFFICE/OUTPA TIENT VISIT, [facility], [address], [place], [place], [address], [place] tel:[phone] [facility] anxiety1 (chief complaint) pain1 (chief complaint) Generalized Anxiety DisorderChronic pain syndrome Feb- 5 Denis Oliver [address], [place], [place], [address] , [place]. tel:[phone] PREV VISIT, EST, AGE 40-64 [facility], [address], [place], [place], [address], [place] tel:[phone] [facility] Medicine physical (chief complaint) Encounter for general adult medical examination without abnormal findings 5 Denis Oliver [address], [place], [place], [address] , [place]. tel:[phone] OFFICE/OUTPA TIENT VISIT, [facility], [address], [place], [place], [address], [place] tel:[phone] [facility] pain (chief complaint) emphysema1 (chief complaint) Chronic pain syndromeCentrilobul ar emphysema 5 Denis Oliver [address], [place], [place], [address] , [place]. tel:[phone] OFFICE/OUTPA TIENT VISIT, [facility], [address] [place] [address], [place] tel:[phone] [facility] pain (chief complaint) osteopenia 1 (chief complaint) Chronic pain syndromeOther specified disorder of bone density 5 Denis Acosta. [address], [place], [place], [address] , [place]. tel:[phone] OFFICE/OUTPA TIENT VISIT, [facility], [address] [place] [address], [place] tel:[phone] [facility] thyroid1 (chief complaint) HLP (chief complaint) osteopenia 1 (chief complaint) pain (chief complaint) anxiety1 (chief complaint) MCV (chief complaint) Chronic pain syndromeGeneralized Anxiety DisorderHashimoto's thyroiditisMixed hyperlipidemiaOther specified disorder of bone densityOther specified disease of blood 4 Denis Acosta. [address], [place], [place], [address] , [place]. tel:[phone] OFFICE/OUTPA TIENT VISIT, [facility], [address] [place] [address], [place] tel:[phone] [facility] pain (chief complaint) anxiety1 (chief complaint) Chronic pain syndromeGeneralized Anxiety Disorder 4 Denis Acosta. [address] [place], [address] , [place]. tel:[phone] OFFICE/OUTPA TIENT VISIT, [facility], [address] [place] [address], [place] tel:[phone] [facility] pain (chief complaint) anxiety1 (chief complaint) Hashimoto1 (chief complaint) HLP (chief complaint) Mixed hyperlipidemiaHashi roopa's thyroiditisChronic pain syndromeGeneralized Anxiety DisorderOther disorders of phosphorus metabolism 4 Denis Acosta. [address], [place], [place], [address] , . tel:[phone] OFFICE/OUTPA TIENT VISIT, [facility], [address] [place], [place], [address], tel:[phone] [facility] pain1 (chief complaint) anxiety1 (chief complaint) Chronic pain syndromeGeneralized Anxiety Disorder 4 Denis Acosta. [address], [place], [place], [address] , [place]. tel:[phone] OFFICE/OUTPA TIENT VISIT, [facility], [address], [place], [place], [address], [place] tel:[phone] [facility] osteopenia 1 (chief complaint) anxiety1 (chief complaint) pain (chief complaint) Chronic pain syndromeGeneralized Anxiety DisorderOther specified disorder of bone density 4 Denis Acosta. [address], [place], [place], [address] , [place]. tel: [phone] OFFICE/OUTPA TIENT VISIT, [facility], [address] [place] [address], [place] tel:[phone] [facility] anxiety1 (chief complaint) maynor (chief complaint) HLP (chief complaint) tachycardi a1 (chief complaint) Chronic pain syndromeGeneralized Anxiety DisorderTachycardia Mixed hyperlipidemia 4 Denis Acosta. [address], [place], [place], [address] , [place]. tel:[phone] OFFICE/OUTPA TIENT VISIT, [facility], [address] [place] [address], [place] tel:[phone] [facility] pain1 (chief complaint) phos1 (chief complaint) hashimoto1 (chief complaint) anxiety1 (chief complaint) MCV (chief complaint) Chronic pain syndromeGeneralized Anxiety DisorderHashimoto's thyroiditisOther disorders of phosphorus metabolismPain in left shoulder 4 Denis Acosta. [address], [place], [place], [address] , [place]. tel:[phone] OFFICE/OUTPA TIENT VISIT, EST [facility], [address] [place], [address], [place] tel:[phone] [facility] anxiety1 (chief complaint) COPD1 (chief complaint) pain (chief complaint) Chronic pain syndromeGeneralized Anxiety DisorderOther specified disorder of bone densityCentrilobula r emphysema 4 Barrios Dave. [address] [place], [address] , [place]. tel:[phone] OFFICE/OUTPA TIENT VISIT, [facility], [address] [place], [address], [place] tel:[phone] [facility] anxiety1 (chief complaint) pain (chief complaint) thyroid1 (chief complaint) MCV (chief complaint) Generalized Anxiety DisorderChronic pain syndromeOther specified disease of bloodAlcohol abuse, in remissionHashimoto' s thyroiditis 4 Barrios Dave. [address] [place], [address] , [place]. tel:[phone] OFFICE/OUTPA TIENT VISIT, [facility], [address] [place], [address], [place] tel:[phone] [facility] anxiety1 (chief complaint) knee pain1 (chief complaint) pain (chief complaint) osteopenia 1 (chief complaint) Chronic pain syndromeGeneralized Anxiety DisorderOther specified disorder of bone densityOsteoarthrit is of knee 4 Barrios Dave. [address] [place], [address] , [place]. tel:[phone] OFFICE/OUTPA TIENT VISIT, [facility], [address] [place], [address], [place] tel:[phone] [facility] pain (chief complaint) HLP (chief complaint) MCV (chief complaint) anxiety1 (chief complaint) Other specified disease of bloodMixed hyperlipidemiaChron ic pain syndromeAlcohol abuse, in remissionGeneralize d Anxiety DisorderOther specified disorder of bone density 4 Barrios Dave. [address], [place], [place], [address] , [place]. tel:[phone] OFFICE/OUTPA TIENT VISIT, EST [facility], [address], [place], [place], [address], [place] tel:[phone] [facility] thyroid1 (chief complaint) UTI1 (chief complaint) cocaine1 (chief complaint) Hudson's thyroiditisAcute cystitis without hematuriaCocaine abuse, uncomplicatedOther specified disease of blood 4 Barrios Dave. [address], [place], [place], [address] , [place]. tel:[phone] OFFICE/OUTPA TIENT VISIT, [facility], [address], [place], [place], [address], [place] tel:[phone] [facility] pain (chief complaint) Chronic pain syndrome 4 Barrios Dave. [address], [place], [place], [address] , [place]. tel:[phone] PREV VISIT, EST, AGE 40-64 [facility], [address], [place], [place], [address], [place] tel:[phone] [facility] physical (chief complaint) Encounter for general adult medical exam w abnormal findingsChronic pain syndromeGERD without esophagitisHashimot o's thyroiditisCentrilo bular emphysemaMixed hyperlipidemiaOther specified disorder of bone density 4 Barrios Dave. [address], [place], [place], [address] , [place]. tel:[phone] OFFICE/OUTPA TIENT VISIT, EST [facility], [address], [place], [place], [address], [place] tel:[phone] [facility] pain (chief complaint) COPD1 (chief complaint) Centrilobular emphysemaChronic pain syndrome 3 Barrios Dave. [address], [place], [place], [address] , [place]. tel:[phone] OFFICE/OUTPA TIENT VISIT, [facility], [address], [place], [place], [address], [place] tel:[phone] [facility] Medicine pain (chief complaint) Chronic pain syndromeTobacco use 3 Denis Acosta. [address], [place], [place], [address] , [place]. tel:[phone] OFFICE/OUTPA TIENT VISIT, [facility], [address], [place], [place], [address], [place] tel:[phone] [facility] pain (chief complaint) sleep apnea1 (chief complaint) GERD1 (chief complaint) Chronic pain syndromeObstructive sleep apnea hypopneaGERD without esophagitisTobacco use 3 Denis Acosta. [address], [place], [place], [address] , [place]. tel:[phone] OFFICE/OUTPA TIENT VISIT, [facility], [address], [place], [place], [address], [place] tel:[phone] [facility] Medicine pain (chief complaint) Chronic pain syndromeObstructive sleep apnea (adult) (pediatric) 3 Denis Acosta. [address], [place], [place], [address] , [place]. tel:[phone] OFFICE/OUTPA TIENT VISIT, [facility], [address], [place], [place], [address], [place] tel:[phone] [facility] pain (chief complaint) sleep apnea1 (chief complaint) Primary central sleep apneaChronic pain syndrome 3 Denis Acosta. [address], [place], [place], [address] , [place]. tel:[phone] OFFICE/OUTPA TIENT VISIT, [facility], [address], [place], [place], [address], [place] tel:[phone] [facility] pain (chief complaint) HLP (chief complaint) Chronic pain syndromeMixed hyperlipidemia Aug-0 3 3 Denis Acosta. [address], [place], [place], [address] , [place]. tel:[phone] OFFICE/OUTPA TIENT VISIT, [facility], [address], [place], [place], [address], [place] tel:[phone] [facility] pain (chief complaint) Chronic pain syndrome Dom-0 3 Densi Acosta. [address], [place], [place], [address] , [place]. tel:[phone] OFFICE/OUTPA TIENT VISIT, [facility], [address], [place], [place], [address], [place] tel:[phone] [facility] pain (chief complaint) hand pain1 (chief complaint) GERD1 (chief complaint) Chronic pain syndromeGERD without esophagitisPain in right hand Corwin-0 3 Denis Acosta. [address], [place], [place], [address] , [place]. tel:[phone] OFFICE/OUTPA TIENT VISIT, [facility], [address], [place], [place], [address], [place] tel:[phone] [facility] pain (chief complaint) COPD1 (chief complaint) hand pain1 (chief complaint) Chronic pain syndromeCentrilobul ar emphysemaPain in right hand March-0 3 Denis Acosta. [address], [place], [place], [address] , [place]. tel:[phone] OFFICE/OUTPA TIENT VISIT, [facility], [address], [place], [place], [address], [place] tel:[phone] [facility] pain (chief complaint) Chronic pain syndrome Feb- 0 3 Denis Acosta. [address], [place], [place], [address] , [place]. tel:[phone] OFFICE/OUTPA TIENT VISIT, [facility], [address], [place], [place], [address], [place] tel:[phone] [facility] pain (chief complaint) GERD1 (chief complaint) TB (chief complaint) Chronic pain syndromeGERD w/o esophagitisEncounte r for screening for respiratory TB 3 Denis Acosta. [address], [place], [place], [address] , [place]. tel:[phone] OFFICE/OUTPA TIENT VISIT, [facility], [address], [place], [place], [address], [place] tel:[phone] [facility] pain (chief complaint) MCV (chief complaint) osteopenia 1 (chief complaint) LFT1 (chief complaint) Other specified disorder of bone densityChronic pain syndromeOther specified abnormal findings of blood chemistryLiver disease 3 Denis Acosta. [address], [place], [place], [address] , [place]. tel:[phone] OFFICE/OUTPA TIENT VISIT, [facility], [address], [place], [place], [address], [place] tel:[phone] [facility] hashimoto1 (chief complaint) pain (chief complaint) osteopenia 1 (chief complaint) Other specified disorder of bone densityHashimoto's thyroiditisChronic pain syndrome 3 Denis Acosta. [address], [place], [place], [address] , [place]. tel:[phone] OFFICE/OUTPA TIENT VISIT, [facility], [address], [place], [place], [address], [place] tel:[phone] [facility] pain (chief complaint) thyroid1 (chief complaint) Hudson's thyroiditisChronic pain syndrome 2 Denis Acosta. [address], [place], [place], [address] , [place]. tel:[phone] OFFICE/OUTPA TIENT VISIT, [facility], [address], [place], [place], [address], [place] tel:[phone] [facility] pain (chief complaint) emphysema1 (chief complaint) hypothyroi dism1 (chief complaint) Centrilobular emphysemaHashimoto' s thyroiditisChronic pain syndromeOther specified abnormal findings of blood chemistry 0- 2 Denis Acosta. [address], [place], [place], [address] , [place]. tel:[phone] PREV VISIT, EST, AGE 40-64 [facility], [address], [place], [place], [address], [place] tel:[phone] [facility] physical (chief complaint) Encounter for general adult medical exam w abnormal findingsMixed hyperlipidemiaHypot hyroidismOther specified disorder of bone densityOther specified abnormal findings of blood chemistryChronic pain syndromeCentrilobul ar emphysemaPrimary central sleep apnea 2 Denis Acosta. [address], [place], [place], [address] , [place]. [phone] OFFICE/OUTPA TIENT VISIT, EST [facility], [address], [place], [place], [address], [place] tel:[phone] [facility] pain (chief complaint) weight loss1 (chief complaint) Chronic pain syndromeAbnormal weight loss Jul-0 2 Denis Acosta. [address], [place], [place], [address] , [place]. tel:[phone] OFFICE/OUTPA TIENT VISIT, EST [facility], [address], [place], [place], [address], [place] tel:[phone] [facility] pain (chief complaint) HLP (chief complaint) hypothyroi dism1 (chief complaint) Mixed hyperlipidemiaHypot hyroidismChronic pain syndrome Jun- 2 Denis Acosta. [address], [place], [place], [address] , [place]. tel:[phone] OFFICE/OUTPA TIENT VISIT, EST [facility], [address], [place], [place], [address], [place] tel:[phone] [facility] pain (chief complaint) thyroid (chief complaint) HLP (chief complaint) Chronic pain syndromeMixed hyperlipidemiaHashi roopa's thyroiditisEncounte r for oth screening for malignant neoplasm of breast 2 Barrios Dave. [address], [place], [place], [address] , [place]. tel:[phone] OFFICE/OUTPA TIENT VISIT, [facility], [address], [place], [place], [address], [place] tel:[phone] [facility] pain (chief complaint) osteopenia 1 (chief complaint) sleep apnea1 (chief complaint) Sleep apneaChronic pain syndromeOther specified disorder of bone density 2 Barrios Dave. [address], [place], [place], [address] , [place]. tel:[phone] OFFICE/OUTPA TIENT VISIT, [facility], [address], [place], [place], [address], [place] tel:[phone] [facility] pain (chief complaint) osteopenia 1 (chief complaint) sleep apnea1 (chief complaint) Chronic pain syndromeOther specified disorder of bone densityPulmonary hypertensionSleep apnea 2 Barrios Dave. [address], [place], [place], [address] , [place]. tel:[phone] OFFICE/OUTPA TIENT VISIT, [facility], [address], [place], [place], [address], [place] tel:[phone] [facility] pain (chief complaint) GERD (chief complaint) GERD1 (chief complaint) GERD without esophagitisChronic pain syndrome 2 Barrios Dave. [address], [place], [place], [address] , [place]. tel:[phone] OFFICE/OUTPA TIENT VISIT, [facility], [address], [place], [place], [address], [place] tel:[phone] [facility] pain (chief complaint) osteopenia 1 (chief complaint) COPD1 (chief complaint) Chronic pain syndromeEmphysemaVi tamin D deficiency, unspecifiedOther specified disorder of bone densityAbnormal weight loss 0 2 Denis Oliver [address], [place], [place], [address] , [place]. [phone] OFFICE/OUTPA TIENT VISIT, [facility], [address], [place], [place], [address], [place] tel:[phone] [facility] thyroid1 (chief complaint) osteopenia 1 (chief complaint) weight loss1 (chief complaint) pain (chief complaint) Abnormal weight lossChronic pain syndromeOth disrd of bone density and structure, multiple sitesHypothyroidism Fe0 2 Denis Oliver [address], [place], [place], [address] , [place]. [phone] OFFICE/OUTPA TIENT VISIT, EST [facility], [address], [place], [place], [address], [place] tel:[phone] [facility] pain (chief complaint) thyroid1 (chief complaint) weight los1 (chief complaint) osteopenia 1 (chief complaint) GERD1 (chief complaint) Abnormal weight lossHypothyroidismO th disrd of bone density and structure, multiple sitesGERD without esophagitisChronic pain syndrome 2 Denis Oliver [address], [place], [place], [address] , [place]. [phone] PREV VISIT, EST, AGE 40-64 [facility], [address], [place], [place], [address], [place] tel:[phone] [facility] physical (chief complaint) Encounter for general adult medical exam w abnormal findingsHyperlipide miaAbnormal weight lossEmphysemaHypoth yroidismOth disrd of bone density and structure, multiple sitesPulmonary hypertension 1 Denis Oliver [address], [place], [place], [address] , [place]. tel:[phone] OFFICE/OUTPA TIENT VISIT, EST [facility], [address], [place], [place], [address], [place] tel:[phone] [facility] pain (chief complaint) HLP (chief complaint) weight loss1 (chief complaint) tobacco1 (chief complaint) HyperlipidemiaTobac co useChronic pain syndromeAbnormal weight lossHypothyroidism 1 Denis Acosta. [address], [place], [place], [address] , [place]. tel:[phone] OFFICE/OUTPA TIENT VISIT, [facility], [address], [place], [address], [place] tel:[phone] [facility] thryoid1 (chief complaint) pain (chief complaint) tobacco1 (chief complaint) Chronic pain syndromeHypothyroid ismTobacco use 1 Denis Acosta. [address], [place], [place], [address] , [place]. tel:[phone] OFFICE/OUTPA TIENT VISIT, [facility], [address], [place], [address], [place] tel:[phone] [facility] HLP (chief complaint) hypothyroi dism1 (chief complaint) pain (chief complaint) COPD1 (chief complaint) HypothyroidismHyper lipidemiaEmphysemaC hronic pain syndromeTobacco use 1 Denis Acosta. [address], [place], [place], [address] , [place]. tel:[phone] OFFICE/OUTPA TIENT VISIT, EST [facility], [address], [place], [address], [place] tel:[phone] [facility] HLP (chief complaint) thyroid1 (chief complaint) pain (chief complaint) Chronic pain syndromeHyperlipide miaHypothyroidismEn counter for oth screening for malignant neoplasm of breast 1 Denis Acosta. [address], [place], [place], [address] , [place]. tel:[phone] OFFICE/OUTPA TIENT VISIT, [facility], [address], [place], [place], [address], [place] tel:[phone] [facility] pain (chief complaint) HLP (chief complaint) thyroid1 (chief complaint) HypothyroidismHyper lipidemiaChronic pain syndromeEncounter for oth screening for malignant neoplasm of breast 1 Denis Acosta. [address], [place], [place], [address] , [place]. tel:[phone] OFFICE/OUTPA TIENT VISIT, [facility], [address], [place], [place], [address], [place] tel:[phone] [facility] GERD1 (chief complaint) hypothyroi dism1 (chief complaint) GERD without esophagitisHypothyr oidism 1 Denis Acosta. [address], [place], [place], [address] , [place]. tel:[phone] OFFICE/OUTPA TIENT VISIT, [facility], [address], [place], [place], [address], [place] tel:[phone] [facility] thyroid1 (chief complaint) HLP (chief complaint) pain (chief complaint) weight loss1 (chief complaint) HypothyroidismHyper lipidemiaChronic pain syndromeAbnormal weight loss 1 Denis Acosta. [address], [place], [place], [address] , [place]. tel:[phone] OFFICE/OUTPA TIENT VISIT, [facility], [address], [place], [place], [address], [place] tel:[phone] [facility] pain (chief complaint) thyroid (chief complaint) HLP (chief complaint) Chronic pain syndromeHyperlipide miaHypothyroidism 1 Denis Acosta. [address], [place], [place], [address] , [place]. tel:[phone] OFFICE/OUTPA TIENT VISIT, [facility], [address], [place], [place], [address], [place] tel:[phone] [facility] pain (chief complaint) thyroid1 (chief complaint) HLP (chief complaint) osteopenia 1 (chief complaint) Oth disrd of bone density and structure, multiple sitesHyperlipidemia HypothyroidismChron ic pain syndrome 1 Denis Acosta. [address], [place], [place], [address] , [place]. [phone] OFFICE/OUTPA TIENT VISIT, [facility], [address], [place], [place], [address], [place] tel:[phone] [facility] pain (chief complaint) COPD1 (chief complaint) osteopenia 1 (chief complaint) mammo (chief complaint) Chronic pain syndromeEmphysemaOt h disrd of bone density and structure, multiple sitesEncounter for oth screening for malignant neoplasm of breast 1 Denis Acosta. [address], [place], [place], [address] , [place]. [phone] OFFICE/OUTPA TIENT VISIT, [facility], [address], [place], [place], [address], [place] tel:[phone] [facility] pain (chief complaint) Chronic pain syndrome 1 Denis Acosta. [address], [place], [place], [address] , [place]. tel:[phone] OFFICE/OUTPA TIENT VISIT, [facility], [address], [address], [place] tel:[phone] [facility] pain (chief complaint) thryoid1 (chief complaint) GERD1 (chief complaint) HLP (chief complaint) HypothyroidismHyper lipidemiaGERD without esophagitisChronic pain syndrome 0 Denis Acosta. [address], [place], [place], [address] , [place]. tel:[phone] OFFICE/OUTPA TIENT VISIT, [facility], [address], [place], [place], [address], [place] tel:[phone] [facility] pain (chief complaint) Chronic pain syndrome 0 Denis Acosta. [address], [place], [place], [address] , [place]. tel:[phone] OFFICE/OUTPA TIENT VISIT, [facility], [address], [place], [place], [address], [place] tel:[phone] [facility] pain (chief complaint) osteopenia 1 (chief complaint) Chronic pain syndromeOth disrd of bone density and structure, multiple sites 0 Denis Acosta. [address], [place], [place], [address] , [place]. [phone] OFFICE/OUTPA TIENT VISIT, [facility], [address], [place], [place], [address], [place] tel:[phone] [facility] pain (chief complaint) Chronic pain syndromeTobacco use 0 Denis Acosta. [address], [place], [place], [address] , [place]. [phone] OFFICE/OUTPA TIENT VISIT, [facility], [address], [place], [place], [address], [place] tel:[phone] [facility] COPD1 (chief complaint) pain1 (chief complaint) EmphysemaChronic pain syndrome 0 Denis Acosta. [address], [place], [place], [address] , [place]. tel:[phone] OFFICE/OUTPA TIENT VISIT, [facility], [address], [place], [place], [address], [place] tel:[phone] [facility] pain (chief complaint) renal1 (chief complaint) Chronic pain syndromeTobacco useRenal disease 0 Denis Acosta. [address], [place], [place], [address] , [place]. tel:[phone] OFFICE/OUTPA TIENT VISIT, [facility], [address], [place], [place], [address], [place] tel:[phone] [facility] pain (chief complaint) sleep apnea1 (chief complaint) Chronic pain syndromeSleep apneaTobacco use 0 Denis Acosta. [address], [place], [place], [address] , [place]. tel:[phone] Referring Provider: Sonny Regalado [address], [place], [place], [address]. tel:[phone] OFFICE/OUTPA TIENT VISIT, [facility], [address], [place], [place], [address], [place] tel:[phone] [facility] pain (chief complaint) sleep apnea1 (chief complaint) GERD1 (chief complaint) osteopenia 1 (chief complaint) GERD without esophagitisChronic pain syndromeOth disrd of bone density and structure, multiple sitesSleep apnea 0 Denis Oliver [address], [place], [place], [address] , [place]. tel:[phone] Referring Provider: Sonny Regalado [address], [place], [place], [address]. tel:[phone] OFFICE/OUTPA TIENT VISIT, [facility], [address], [place], [place], [address], [place] tel:[phone] [facility] pain (chief complaint) GERD1 (chief complaint) LDCT (chief complaint) Chronic pain syndromeTobacco useGERD w/o esophagitis 0 Denis Oliver [address], [place], [place], [address] , [place]. tel:[phone] Referring Provider: Sonny Regalado [address], [place], [place], [address]. tel:[phone] OFFICE/OUTPA TIENT VISIT, EST [facility], [address], [place], [place], [address], [place] tel:[phone] [facility] Medicine physical (chief complaint) Encounter for general adult medical exam w abnormal findingsEmphysemaOt h disrd of bone density and structure, multiple sitesHypothyroidism Hyperlipidemia 0 Denis Acosta. [address], [place], [place], [address] , [place]. tel:[phone] Referring Provider: Sonny Regala[address], [place], [place], [address]. tel:[phone] OFFICE/OUTPA TIENT VISIT, EST [facility], [address], [place], [place], [address], [place] tel:[phone] [facility] osteopenia 1 (chief complaint) pain (chief complaint) lung (chief complaint) Chronic pain syndromeOth disrd of bone density and structure, multiple sitesTobacco use 0 Denis Acosta. [address], [place], [place], [address] , [place]. tel:[phone] Referring Provider: Sonny Regalado [address], [place], [place], [address]. tel:[phone] PREV VISIT, EST, AGE 40-64 [facility], [address], [place], [place], [address], [place] tel:[phone] [facility] Medicine Physical (chief complaint) Encntr for general adult medical exam w/o abnormal findings 0 Denis Acosta. [address], [place], [place], [address] , [place]. tel:[phone] Referring Provider: Sonny Regalado [address], [place], [place], [address]. tel:[phone] OFFICE/OUTPA TIENT VISIT, EST [facility], [address], [place], [place], [address], [place] tel:[phone] [facility] pain (chief complaint) thyroid1 (chief complaint) Chronic pain syndromeHypothyroid ism 9 Denis Acosta. [address], [place], [place], [address] , [place]. tel:[phone] Referring Provider: Dave Barrios, [address], [place], [place], [address]. tel:[phone] OFFICE/OUTPA TIENT VISIT, [facility], [address], [place], [place], [address], [place] tel:[phone] [facility] chronic pain1 (chief complaint) mammo (chief complaint) Chronic pain syndromeEmphysema 9 Denis Acosta. [address], [place], [place], [address] , [place]. [phone] Referring Provider: Sonny Regalado [address], [place], [place], [address]. tel:[phone] OFFICE/OUTPA TIENT VISIT, [facility], [address], [place], [place], [address], [place] tel:[phone] [facility] pain1 (chief complaint) mammo (chief complaint) Chronic pain syndromeEncounter for oth screening for malignant neoplasm of breast 9 Denis Acosta. [address], [place], [place], [address] , [place]. [phone] OFFICE/OUTPA TIENT VISIT, [facility], [address], [place], [place], [address], [place] tel:[phone] [facility] chronic pain1 (chief complaint) osteopenia 1 (chief complaint) Chronic pain syndromeOth disrd of bone density and structure, multiple sites 9 Denis Acosta. [address], [place], [place], [address] , [place]. [phone] Referring Provider: Sonny Regalado [address], [place], [place], [address]. tel:[phone] OFFICE/OUTPA TIENT VISIT, [facility], [address], [place], [place], [address], [place] tel:[phone] [facility] pain1 (chief complaint) Chronic pain syndrome 9 Denis Acosta. [address], [place], [place], [address] , [place]. tel:[phone] Referring Provider: Sonny Regalado [address], [place], [place], [address]. tel:[phone] OFFICE/OUTPA TIENT VISIT, [facility], [address], [place], [place], [address], [place] tel:[phone] [facility] chronic pain1 (chief complaint) COPD1 (chief complaint) EmphysemaChronic pain syndromeLymphadenop athy 9 Denis Acosta. [address], [place], [place], [address] , [place]. tel:[phone] Referring Provider: Sonny Regalado [address], [place], [place], [address]. tel:[phone] OFFICE/OUTPA TIENT VISIT, [facility], [address], [place], [place], [address], [place] tel:[phone] [facility] emphysema1 (chief complaint) pain1 (chief complaint) lymph1 (chief complaint) LymphadenopathyChro lizabeth pain syndromeEmphysema 9 Denis Acosta. [address], [place], [place], [address] , [place]. tel:[phone] Referring Provider: Sonny Regalado [address], [place], [place], [address]. tel:[phone] OFFICE/OUTPA TIENT VISIT, [facility], [address], [place], [place], [address], [place] tel:[phone] [facility] chronic pain (chief complaint) lymph (chief complaint) thyroid (chief complaint) osteopenia 1 (chief complaint) Chronic pain syndromeHypothyroid ismOth disrd of bone density and structure, multiple sitesLymphadenopath y 9 Denis Acosta. [address], [place], [place], [address] , [place]. tel:[phone] Referring Provider: Sonny Regalado [facility] A, [place], [place], [address]. tel:[phone] OFFICE/OUTPA TIENT VISIT, [facility], [address], [place], [place], [address], [place] tel:[phone] [facility] weight loss1 (chief complaint) chronic pain (chief complaint) thyroid1 (chief complaint) Chronic pain syndromeHypothyroid ismAbnormal weight lossLymphadenopathy 9 Denis Olvier [address], [place], [place], [address] , [place]. tel:[phone] Referring Provider: Sonny Regalado [address], [place], [place], [address]. tel:[phone] OFFICE/OUTPA TIENT VISIT, [facility], [address], [place], [place], [address], [place] tel:[phone] [facility] chronic pain (chief complaint) osteopenia 1 (chief complaint) GERD1 (chief complaint) COPD1 (chief complaint) Body mass index (BMI) 29.0-29.9, adultChronic pain syndromeEmphysemaOt h disrd of bone density and structure, multiple sitesGERD without esophagitisFolate deficiency 9 Denis Acosta. [address], [place], [place], [address] , [place]. tel:[phone] OFFICE/OUTPA TIENT VISIT, [facility], [address], [place], [place], [address], [place] tel:[phone] [facility] chronic pain (chief complaint) thyroid (chief complaint) weight loss1 (chief complaint) sick (chief complaint) Abnormal weight lossViral infectionHypothyroi dismChronic pain syndrome 9 Denis Acosta. [address], [place], [place], [address] , [place]. tel:[phone] OFFICE/OUTPA TIENT VISIT, EST [facility], [address], [place], [place], [address], [place] tel:[phone] [facility] COPD1 (chief complaint) fatty liver1 (chief complaint) pulmonary HTN (chief complaint) renal1 (chief complaint) pain1 (chief complaint) EmphysemaFatty liverRenal diseaseHypothyroidi smHyperglycemiaHype rlipidemiaPulmonary hypertension 9 Denis Acosta. [address], [place], [place], [address] , [place]. tel:[phone] OFFICE/OUTPA TIENT VISIT, EST [facility], [address], [place], [place], [address], [place] tel:[phone] [facility] chronic pain (chief complaint) tobacco1 (chief complaint) HLP (chief complaint) COPD1 (chief complaint) sleep apnea1 (chief complaint) EmphysemaSleep apneaChronic pain syndromeHyperlipide miaScreening for pulmonary ca 8 Denis Acosta. [address], [place], [place], [address] , [place]. tel:[phone] Referring Provider: Dave Barrios [address], [place], [place], [address]. tel:[phone] PREV VISIT, EST, AGE 40-64 [facility], [address], [place], [place], [address], [place] tel:[phone] [facility] PHysical (chief complaint) Encntr for general adult medical exam w/o abnormal findings 8 Denis Acosta. [address], [place], [place], [address] , [place]. tel:[phone] Referring Provider: Dave Barrios [address], [place], [place], [address]. tel:[phone] OFFICE/OUTPA TIENT VISIT, [facility], [address], [place], [place], [address], [place] tel:[phone] [facility] pain (chief complaint) sleep apnea1 (chief complaint) lung CA screening1 (chief complaint) emphysema1 (chief complaint) Chronic pain syndromeSleep apneaScreening for pulmonary caEmphysema 8 Denis Acosta. [address], [place], [place], [address] , [place]. [phone] Referring Provider: Sonny Regalado [address], [place], [place], [address]. tel:[phone] OFFICE/OUTPA TIENT VISIT, [facility], [address], [place], [place], [address], [place] tel:[phone] [facility] sleep apnea1 (chief complaint) chronic pain (chief complaint) GERD1 (chief complaint) hip pain1 (chief complaint) Folate deficiencySleep apneaGERD without esophagitisChronic pain syndromeEncounter for oth screening for malignant neoplasm of breast 8 Denis Acosta. [address], [place], [place], [address] , [place]. [phone] Referring Provider: Sonny Regalado [address], [place], [place], [address]. tel:[phone] OFFICE/OUTPA TIENT VISIT, [facility], [address], [place], [place], [address], [place] tel:[phone] [facility] chronic pain (chief complaint) hip pain1 (chief complaint) sleep apnea1 (chief complaint) folate1 (chief complaint) Chronic pain syndromePain in right hipSleep apneaFolate deficiency 8 Denis Oliver [address], [place], [place], [address] , [place]. [phone] Referring Provider: Sonny Regalado [address], [place], [place], [address]. tel:[phone] OFFICE/OUTPA TIENT VISIT, [facility], [address], [place], [place], [address], [place] tel:[phone] [facility] chronic pain (chief complaint) sleep apnea1 (chief complaint) GERD1 (chief complaint) osteopenia 1 (chief complaint) GERD without esophagitisChronic pain syndromeOth disrd of bone density and structure, multiple sitesSleep apnea 8 Denis Oliver [address], [place], [place], [address] , [place]. tel:[phone] OFFICE/OUTPA TIENT VISIT, [facility], [address], [place], [place], [address], [place] tel:[phone] [facility] chronic pain1 (chief complaint) renal (chief complaint) snoring (chief complaint) GERD1 (chief complaint) GERD without esophagitisChronic pain syndromeRenal diseaseSleep apnea 8 Denis Oliver [address], [place], [place], [address] , [place]. tel:[phone] Referring Provider: [address], [place], [place], [address]. tel:[phone] OFFICE/OUTPA TIENT VISIT, [facility], [address], [place], [place], [address], [place] tel:[phone] [facility] GERD1 (chief complaint) pain (chief complaint) abd pain1 (chief complaint) Other cholelithiasis without obstructionChronic pain syndromeGERD w/o esophagitisBody mass index (BMI) 31.0-31.9, adult March- 8 Denis Oliver [address], [place], [place], [address] , [place]. tel:[phone] Referring Provider: [address], [place], [place], [address]. tel:[phone] OFFICE/OUTPA TIENT VISIT, [facility], [address], [place], [place], [address], [place] tel:[phone] [facility] chrnoic pain (chief complaint) GERD1 (chief complaint) chest congestion 1 (chief complaint) Body mass index (BMI) 30.0-30.9, adultGERD without esophagitisEmphysem aAcute bronchitisOther cholelithiasis without obstruction May-0 2201 8 Denis Acosta. [address], [place], [place], [address] , [place]. [phone] Referring Provider: Sonny Regalado [address], [place], [place], [address]. tel:[phone] OFFICE/OUTPA TIENT VISIT, [facility], [address], [place], [place], [address], [place] tel:[phone] [facility] thyroid1 (chief complaint) chronic pain (chief complaint) abd pain1 (chief complaint) Body mass index (BMI) 31.0-31.9, adultHypothyroidism Other cholelithiasis without obstructionChronic pain syndrome Apr-0 8 Denis Acosta. [address], [place], [place], [address] , [place]. tel:[phone] Referring Provider: Sonny Regalado [address], [place], [place], [address]. tel:[phone] OFFICE/OUTPA TIENT VISIT, [facility], [address], [place], [place], [address], [place] tel:[phone] [facility] chronic pain1 (chief complaint) abd pain1 (chief complaint) GERD without esophagitisChronic pain syndrome Jan-0 8 Denis Acosta. [address], [place], [place], [address] , [place]. tel:[phone] Referring Provider: Sonny Regalado [address], [place], [place], [address]. tel:[phone] OFFICE/OUTPA TIENT VISIT, [facility], [address], [place], [place], [address], [place] tel:[phone] [facility] chronic pain1 (chief complaint) abd pain1 (chief complaint) COPD1 (chief complaint) EmphysemaChronic pain syndromeGERD without esophagitis 8 Denis Oliver [address], [place], [place], [address] , [place]. [phone] Referring Provider: Dave Barrios, [address], [place], [place], [address]. tel:[phone] OFFICE/OUTPA TIENT VISIT, EST [facility], [address], [place], [place], [address], [place] tel:[phone] [facility] low folate1 (chief complaint) chronic pain (chief complaint) renal1 (chief complaint) hypothyroi dism1 (chief complaint) HLp (chief complaint) HypothyroidismHyper lipidemiaEmphysemaO th disrd of bone density and structure, multiple sites 8 Denis Oliver [address], [place], [place], [address] , [place]. [phone] Referring Provider: Sonny Regalado [address], [place], [place], [address]. tel:[phone] OFFICE/OUTPA TIENT VISIT, EST [facility], [address], [place], [place], [address], [place] tel:[phone] [facility] chronic pain (chief complaint) HLP (chief complaint) hypothyroi dism (chief complaint) GERD1 (chief complaint) HyperlipidemiaHypot hyroidismGastritis, unspecified, without bleedingChronic pain syndrome 7 Denis Oliver [address], [place], [place], [address] , [place]. tel:[phone] PREV VISIT, EST, AGE 40-64 [facility], [address], [place], [place], [address], [place] tel:[phone] [facility] Physical (chief complaint) Encntr for general adult medical exam w/o abnormal findings 7 Denis Oliver [address], [place], [place], [address] , [place]. [phone] Referring Provider: [address], [place], [place], [address]. tel:[phone] OFFICE/OUTPA TIENT VISIT, [facility], [address], [place], [place], [address], [place] tel:[phone] [facility] chronic pain1 (chief complaint) COpD1 (chief complaint) HLP (chief complaint) EmphysemaChronic pain syndromeHyperlipide unm [facility]En[facility]er for [facility] for malignant neoplasm of colon 7 Denis Acosta. [address], [place], [place], [address] , [place]. [phone] Referring Provider: [address], [place], [place], [address]. tel:[phone] OFFICE/OUTPA TIENT VISIT, [facility], [address], [place], [place], [address], [place] tel:[phone] [facility] COPD1 (chief complaint) chronic pain (chief complaint) tobacco1 (chief complaint) EmphysemaChronic pain syndromeTobacco use 7 Denis Acosta. [address], [place], [place], [address] , [place]. [phone] Referring Provider: [address], [place], [place], [address]. tel:[phone] OFFICE/OUTPA TIENT VISIT, [facility], [address], [place], [place], [address], [place] tel:[phone] [facility] chronic pain (chief complaint) asthma1 (chief complaint) hypothyroi dism1 (chief complaint) HLP (chief complaint) Chronic pain syndromeAsthmaHypot hyroidismHyperlipid emia 7 Denis Acosta. [address], [place], [place], [address] , [place]. [phone] Referring Provider: [address], [place], [place], [address]. tel:[phone] OFFICE/OUTPA TIENT VISIT, [facility], [address], [place], [place], [address], [place] tel:[phone] [facility] chronic pain (chief complaint) gastritis1 (chief complaint) asthma1 (chief complaint) colonoscop y1 (chief complaint) Encounter for screening for malignant neoplasm of colonAsthmaChronic pain syndromeGERD without esophagitis 7 Denis Acosta. [address], [place], [place], [address] , [place]. tel:[phone] Referring Provider: Sonny Regalado [address], [place], [place], [address]. tel:[phone] OFFICE/OUTPA TIENT VISIT, [facility], [address], [place], [place], [address], [place] tel:[phone] [facility] SOb1 (chief complaint) chronic pain1 (chief complaint) GERD1 (chief complaint) anxiety1 (chief complaint) GERD without esophagitisChronic pain syndromeAsthmaGener alized Anxiety Disorder 7 Denis Acosta. [address], [place], [place], [address] , [place]. tel:[phone] Referring Provider: Sonny Regalado [address], [place], [place], [address]. tel:[phone] OFFICE/OUTPA TIENT VISIT, [facility], [address], [place], [place], [address], [place] [phone] [facility] chronic pain1 (chief complaint) asthma1 (chief complaint) GERD1 (chief complaint) Chronic pain syndromeAsthmaOther gastritis without bleeding 7 Denis Acosta. [address], [address], [place], [place], [address] , [place]. [phone] Referring Provider: Sonny Regalado [address], [place], [place], [address]. tel:[phone] OFFICE/OUTPA TIENT VISIT, [facility], [address], [place], [place], [address], [place] tel:[phone] [facility] chronic pain1 (chief complaint) asthma1 (chief complaint) insomania1 (chief complaint) anxiety1 (chief complaint) AsthmaChronic pain syndromeSleep disorderBody mass index (BMI) 33.0-33.9, adult 7 Denis Acosta. [address], [address], [place], [place], [address] , [place]. [phone] Referring Provider: Sonny Regalado [address], [place], [place], [address]. tel:[phone] OFFICE/OUTPA TIENT VISIT, [facility], [address], [place], [place], [address], [place] tel:[phone] [facility] asthma1 (chief complaint) HLP (chief complaint) hypothyroi dism1 (chief complaint) chronic pain (chief complaint) GERD1 (chief complaint) HypothyroidismHyper lipidemiaAsthmaEnco unter for screening for other viral diseases 7 Denis Acosta. [address], [address], [place], [address] , [place]. tel:[phone] Referring Provider: Sonny Reg[address], [place], [place], [address]. tel:[phone] OFFICE/OUTPA TIENT VISIT, [facility], [address], [place], [place], [address], [place] tel:[phone] [facility] chronic pain (chief complaint) Asthma1 (chief complaint) GERD1 (chief complaint) AsthmaChronic pain syndromeGERD without esophagitisColitis 7 Denis Acosta. [address], [place], [address] , [place]. tel:[phone] Referring Provider: Sonny Regalado [address], [place], [place], [address]. tel:[phone] OFFICE/OUTPA TIENT VISIT, EST [facility], [address], [place], [place], [address], [place] tel:[phone] [facility] thyroid (chief complaint) GERD1 (chief complaint) asthma1 (chief complaint) chronic pain (chief complaint) HLP (chief complaint) HypothyroidismAsthm aGERD without esophagitisChronic pain syndrome 7 Denis Acosta. [address], [place], [place], [address] , [place]. [phone] Referring Provider: Sonny Regalado [address], [place], [place], [address]. tel:[phone] OFFICE/OUTPA TIENT VISIT, [facility], [address], [place], [place], [address], [place] tel:[phone] [facility] chronic pain (chief complaint) asthma1 (chief complaint) HLP (chief complaint) hypothyroi diwsm1 (chief complaint) AsthmaHypothyroidis mChronic pain syndromeHyperlipide jacob 6 Denis Acosta. [address], [place], [place], [address] , [place]. tel:[phone] Referring Provider: Sonny Regalado [address], [place], [place], [address]. tel:[phone] OFFICE/OUTPA TIENT VISIT, [facility], [address], [place], [place], [address], [place] tel:[phone] [facility] chronic pain1 (chief complaint) hypothyroi dism (chief complaint) renal disease1 (chief complaint) SOB (chief complaint) HypothyroidismRenal diseaseChronic pain syndromeAsthma 6 Denis Acosta. [address], [place], [place], [address] , [place]. [phone] Referring Provider: Sonny Regalado [address], [place], [place], [address]. tel:[phone] PREV VISIT, EST, AGE 40-64 [facility], [address], [place], [place], [address], [place] tel:[phone] [facility] Medicine Physical (chief complaint) Encntr for general adult medical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 takes norco PRN for pain and doing ok pt denies any worsening pain pt denies any loss of bladder control. Pt has mild sciatica and leg numbness but not bad. Pt denies any loss of bowel or bladder control Pt denies any saddle area paresthesia physical Pt needs annual physical. Pt has chronic back and hip pain pt takes norco PRN for pain and doing ok. Pt has HLP. Pt takes crestor. Pt denies any myalgia. Pt has mild gerd and she only takes pepcid PRN only. pt has osteopenia. Pt takes calcium and D and fosamax and doing ok Pt has COPD Pt uses incruse and airduo. pt rarely uses albuterol. Pt has hudson and she is on synthroid. .Pt denies any dysphagia or neck pain. Pt has large MCV. Pt states that she rarely drinks alcohol. COPD1 Pt has emphysema . Pt is on airduo and incruse and doing ok Pt rarely feels sob. pain Pt has chronic b ack and hip and knee pain pt failed NSAID and ultram Pt takes norco PRN for pain and doing ok pt denies any worsening pain pt denies any loss of bladder control. Pt has mild sciatica and leg numbness but not bad. Pt denies any loss of bowel or bladder control Pt denies any saddle area paresthesia pain Pt has chronic b ack and hip and knee pain pt failed NSAID and ultram Pt takes norco PRN for pain and doing ok pt denies any worsening pain pt denies any loss of bladder control. Pt has mild sciatica and leg numbness but not bad. Pt denies any loss of bowel or bladder control Pt denies any saddle area paresthesia pain Pt has chronic b ack and hip and knee pain pt failed NSAID and ultram Pt takes norco PRN for pain and doing ok pt denies any worsening pain pt denies any loss of bladder control. Pt has mild sciatica and leg numbness but not bad. 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 GERD1 Pt has intermitt ent GERd pt has history of benign EGD Pt states that she only needs to take pepcid infrequently Pt denies any abd pain pain Pt has chronic b ack and hip and knee pain pt failed NSAID and ultram Pt takes norco PRN for pain and doing ok pt denies any worsening pain pt denies any loss of bladder control. Pt has mild sciatica and leg numbness but not bad. Pt denies any loss of bowel or bladder control Pt denies any saddle area paresthesia pain Pt has chronic b ack and hip and knee pain pt failed NSAID and ultram Pt takes norco PRN for pain and doing ok pt denies any worsening pain pt denies any loss of bladder control. Pt has mild sciatica and leg numbness but not bad. 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 pain Pt has chronic b ack and hip and knee pain pt failed NSAID and ultram Pt takes norco PRN for pain and doing ok pt denies any worsening pain pt denies any loss of bladder control. Pt has mild sciatica and leg numbness but not bad. Pt denies any loss of bowel or bladder control Pt denies any saddle area paresthesia HLP Pt has HLP Pt ta manju higgins Pt needs refill. pt denies any myalgia pain Pt has chronic b ack and hip and knee pain pt failed NSAID and ultram Pt takes norco PRN for pain and doing ok pt denies any worsening pain pt denies any loss of bladder control. Pt has mild sciatica and leg numbness but not bad. Pt denies any loss of bowel or bladder control Pt denies any saddle area paresthesia hand pain1 Pt accidently hi t right hand and she suffered a nondisplaced transverse fracture of the 5th metacarpal. Pt states that swelling and bruising and pain completely resolved Pt denies any weakness or numbness or tingling GERD1 Pt has mild gerd intermittently and she only takes pepcid PRN and she still has plenty of pepcid left pt denies any abd pain pain Pt has chronic b ack and hip and knee pain pt failed NSAID and ultram Pt takes norco PRN for pain and doing ok pt denies any worsening pain pt denies any loss of bladder control. Pt has mild sciatica and leg numbness but not bad. Pt denies any loss of bowel or bladder control Pt denies any saddle area paresthesia pain Pt has chronic b ack and hip and knee pain pt failed NSAID and ultram Pt takes norco PRN for pain and doing ok pt denies any worsening pain pt denies any loss of bladder control. Pt has mild sciatica and leg numbness but not bad. Pt denies any loss of bowel or bladder control Pt denies any saddle area paresthesia hand pain1 Pt tripped and s he fell and she hit right hand and wrist area on ice box x 7 days ago, Pt notices some right lateral hand swelling with pain and some bruising Pt denies any numbness or tingling or redness o warmth. pt denies any skin abrasion COPD1 Pt has COPD Pt n o longer smoking pt denies any hemoptysis, sob or cough. Pt has not had the need to use albuterol for long time pain Pt has chronic b ack and hip and knee pain pt failed NSAID and ultram Pt takes norco PRN for pain and doing ok pt denies any worsening pain pt denies any loss of bladder control. Pt has mild sciatica and leg numbness but not bad. Pt denies any loss of bowel or bladder control Pt denies any saddle area paresthesia pain Pt has chronic b ack and hip and knee pain pt failed NSAID and ultram Pt takes norco PRN for pain and doing ok pt denies any worsening pain pt denies any loss of bladder control. Pt has mild sciatica and leg numbness but not bad. Pt denies any loss of bowel or bladder control Pt denies any saddle area paresthesia GERD1 Pt has intermitt ent GERd Pt had benign EGD Pt only takes pepcid PRN and on average 1-2 per week. Pt denies any abd pain or nausea. TB Pt is adopting h er grandchild and she needs TB testing Pt denies any cough ,fever, chill, night sweat, sick contact or weight loss or recent ravel. osteopenia1 Pt has osteopeni a Pt doing ok with fosamax and calcium and D LFT1 Pt has borderlin e high LFT .Pt denies any abd pain or jaundice. Pt does not drink alcohol pain Pt has chronic b ack and hip and knee pain pt failed NSAID and ultram Pt takes norco PRN for pain and doing ok pt denies any worsening pain pt denies any loss of bladder control. Pt has mild sciatica and leg numbness but not bad. Pt denies any loss of bowel or bladder control Pt denies any saddle area paresthesia MCV Pt has high MCV. Pt saw hematology and had lab done and ultrasound. hashimoto1 Pt takes synthro id 88 mcg and tsh ok Pt denies any dysphagia or neck pain osteopenia1 Pt takes calcium and D and she is working on weight bearing exercise. Pt has osteopenia. Pt takes 35 mg fosamax pain Pt has chronic b ack and hip and knee pain pt failed NSAID and ultram Pt takes norco PRN for pain and doing ok pt denies any worsening pain pt denies any loss of bladder control. Pt has mild sciatica and leg numbness but not bad. Pt denies any loss of bowel or bladder control Pt denies any saddle area paresthesia pain Pt has chronic b ack and hip and knee pain pt failed NSAID and ultram Pt takes norco PRN for pain and doing ok pt denies any worsening pain pt denies any loss of bladder control. Pt has mild sciatica and leg numbness but not bad. Pt denies any loss of bowel or bladder control Pt denies any saddle area paresthesia thyroid1 Pt denies any dy sphagia or neck pain. Pt has not done TSH yet. Pt is on 88 mcg synthroid pain Pt has chronic b ack and hip and knee pain pt failed NSAID and ultram Pt takes norco PRN for pain and doing ok pt denies any worsening pain pt denies any loss of bladder control. Pt has mild sciatica and leg numbness but not bad. Pt denies any loss of bowel or bladder control Pt denies any saddle area paresthesia emphysema1 Pt uses airduo a nd incruse and she has not had the need to use albuterol for long time. LDCT ok. Pt does have emphysema Pt denies any sob, hemoptysis or cough hypothyroidism1 Pt has been taki ng synthroid 88 mcg daily. Pt denies any dysphagia. Pt denies any chest pain or palpitation physical Pt needs annual physical. Pt has chronic back and hip pain pt takes norco PRN for pain and doing ok. Pt has HLP. Pt takes crestor. Pt denies any myalgia. Pt has GERD and she takes pepcid and doing ok pt has osteopenia. Pt takes calcium and D. Pt has COPD Pt uses incruse and airduo. pt rarely uses albuterol. Pt has low thyroid. Pt is under replaced .Pt denies any dysphagia or neck pain. Pt has large MCV. Pt states that she rarely drinks alcohol Pt has borderline low protein. Pt was on keto diet until 3 months ago. Pt gained some weight Pt denies any appetite loss, nausea, vomiting, early satiety, change of bowel, etc . pain Pt has chronic b ack and hip and knee pain pt failed NSAID and ultram Pt takes norco PRN for pain and doing ok pt denies any worsening pain pt denies any loss of bladder control. Pt has mild sciatica and leg numbness but not bad. Pt denies any loss of bowel or bladder control Pt denies any saddle area paresthesia weight loss1 Pt has been on k eto diet and she has been losing weight. Pt denies any nausea, vomiting, appetite loss, change of bowel, blood in stool, etc pain Pt has chronic b ack and hip and knee pain pt failed NSAID and ultram Pt takes norco PRN for pain and doing ok pt denies any worsening pain pt denies any loss of bladder control. Pt has mild sciatica and leg numbness but not bad. Pt denies any loss of bowel or bladder control Pt denies any saddle area paresthesia HLP Pt has HLP, Pt t akragini crestor. pt denies any myalgia hypothyroidism1 Pt has hypothyro idism. Pt takes 75 mcg synthroid and TSH ok. Pt just had lab done again pain Pt has chronic b ack and hip and knee pain pt failed NSAID and ultram Pt takes norco PRN for pain and doing ok pt denies any worsening pain pt denies any loss of bladder control. Pt has mild sciatica and leg numbness but not bad. Pt denies any saddle area paresthesia thyroid Pt has hudson thyroid disease Pt takes synthroid Pt denies any dysphagia or neck pain HLP Pt takes crestor Pt denies any myalgia osteopenia1 Pt had bone dens ity done which showed osteopenia, and it is slightly worse compared to two years ago. Pt takes calcium and D and fosamax 35 mg weekly. Pt denies any bone pain or fracture pain Pt has chronic b ack and hip and knee pain pt failed NSAID and ultram Pt takes norco PRN for pain and doing ok pt denies any worsening pain pt denies any loss of bladder control. Pt has mild sciatica and leg numbness but not bad. 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 Pt has PH Pt contacted her [employer] and is getting CPAP sent to her again. Pt has not been using cpap for more than 6 months Pt denies any fatigue pain Pt has chronic b ack and hip and knee pain pt failed NSAID and ultram Pt takes norco PRN for pain and doing ok pt denies any worsening pain pt denies any loss of bladder control. Pt has mild sciatica and leg numbness but not bad. Pt denies any loss of bowel or bladder control Pt denies any saddle area paresthesia osteopenia1 Pt has osteopeni a. 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 Pt is noncompliant and she has not been using cpap. Pt states that insurance does not pay for it. Pt does have pulmonary HTN Pt denies any worsening sob pain Pt has chronic b ack and hip and knee pain pt failed NSAID and ultram Pt takes norco PRN for pain and doing ok pt denies any worsening pain pt denies any loss of bladder control. Pt has mild sciatica and leg numbness but not bad. Pt denies any loss of bowel or bladder control Pt denies any saddle area paresthesia GERD GERD1 Pt has gastritis and mild GERD Pt takes pepcid daily an doing ok Pt denies any abd pain or nausea, vomiting. Pt needs refilled. osteopenia1 Pt has osteopeni a Pt takes calcium and D and is working on weight bearing exercise. pt needs vitamin D refill Bone density is postponed to April due to machine broken in hospital COPD1 Pt has COPD Pt t kannan burris and duedy and she rarely needs to use albuterol. Pt denies any hemoptysis, worsening sob or cough pt no longer smoking pain Pt has chronic b ack and hip and knee pain pt failed NSAID and ultram Pt takes norco PRN for pain and doing ok pt denies any worsening pain pt denies any loss of bladder control. Pt has mild sciatica and leg numbness but not bad. Pt denies any loss of bowel or bladder control Pt denies any saddle area paresthesia thyroid1 Pt has hypothyro idism Pt is on synthroid 75 mcg and her TSh is ok. Pt denies any dysaphia or neck pain osteopenia1 Pt has osteopeni a. Pt takes fosamax and calcium and d Pt has not done bone density yet . weight loss1 Pt has been losi ng weight Pt was on diet but she stopped dieting recently. pt denies any appetite loss or GI issue. Pt did colonguard but result pending pain Pt has chronic b ack and hip and knee pain pt failed NSAID and ultram Pt takes norco PRN for pain and doing ok pt denies any worsening pain pt denies any loss of bladder control. Pt has mild sciatica and leg numbness but not bad. Pt denies any loss of bowel or bladder control Pt denies any saddle area paresthesia pain Pt has chronic b ack and hip and knee pain pt failed NSAID and ultram Pt takes norco PRN for pain and doing ok pt denies any worsening pain pt denies any loss of bladder control. Pt has mild sciatica and leg numbness but not bad. Pt denies any loss of bowel or bladder control thyroid1 Pt has low thyro id. Pt takes synthroid 75 mcg daily pt denies any dysphagia or neck pain Pt has not done TSH yet. Pt just got her insurance figure out weight los1 Pt has been losi ng weight intentionally pt denies any appetite loss, nausea, vomiting, abd pain, early satiety, change of bowel, blood in stool, etc Pt was on keto diet until recently. Pt has been eating more osteopenia1 Pt takes calcium and D and fosamax. Pt has not done bone density yet. GERD1 Pt only has mild GERD intermittently and she takes pepcid on average 2-3 per week Pt denies any abd pain .Pt still has pepcid left over physical Pt needs annual physical Pt has hypothyroidism Pt takes 88 mcg and 100 mcg alternative days but thyroid is still over replaced now. Pt denies any chest pain, headache or sob. Pt denies any abd pain pt denies any bowel change or blood in stool. Pt has HLP Pt takes crestor. Pt has COPD .Pt takes airduo and incruse and she rarely uses albuterol. pt has osteopenia and she has been taking fosamax for almost two years. Pt takes calcium and D also. pt has chronic back and knee and hip pain due to arthritis Pt takes norco PRn for ain and doing ok Pt has been on keto diet for the past 8 months Pt denies any appetite loss, nausea, vomiting diarrhea, change of bowel, etc. Pt also off all psy mds .Her mood is ok Pt denies any suicidal or homicidal thought .Pt denies any crying spells. Pt denies any abd pain HLP Pt has HLP. Pt t kannan higgins. Pt denies any myalgia. her lipid profile is ok weight loss1 Pt has been diet and exercising and losing weight Pt is on keto diet. pt denies any GI issue Pt denies any appetite loss, nausea, vomiting, early satiety. change of bowel, etc. pain Pt has chronic b ack and hip and knee pain pt failed NSAID and ultram Pt takes norco PRN for pain and doing ok pt denies any worsening pain pt denies any loss of bladder control. Pt has mild sciatica and leg numbness but not bad. Pt denies any loss of bowel or bladder control tobacco Pt denies any he moptysis, worsening sob or any cough. Pt no longer smoking Pt had LDCT done last week pain Pt has chronic b ack and hip and knee pain pt failed NSAID and ultram Pt takes norco PRN for pain and doing ok pt denies any worsening pain pt denies any loss of bladder control. Pt has mild sciatica and leg numbness but not bad. Pt denies any loss of bowel or bladder control thryoid1 Pt has been taki ng 100 mcg and 88 mcg of synthroid in alternative days for the past 4 weeks. Pt denies any chest pain or headache tobacco1 Pt has 39 pack y ear tobacco and she no longer smokes. Pt denies any hemoptysis worsening sob or any cough Pt needs LDCT pain Pt has chronic b ack and hip and knee pain pt failed NSAID and ultram Pt takes norco PRN for pain and doing ok pt denies any worsening pain pt denies any loss of bladder control. Pt has mild sciatica and leg numbness but not bad. Pt denies any loss of bowel or bladder control HLP Pt has HLP Pt ta manju higgins. Pt denies any myalgia Her lipid profile is ok now. hypothyroidism1 Pt has hypothyro idism Pt takes 100 mcg of synthroid and her thyroid is too high Pt denies any dysphagia Pt denies any chest pain, headache or palpitation COPD1 Pt has COPD. Pt takes airduo, incruse and she rarely uses albuterol. Pt states that he uses albuterol on average about 2-3 per week. Pt denies any hemoptysis. HLP Pt has HLP. Pt t kannan ronaldo. Pt denies any myalgia. Pt has not done lab yet thyroid1 Pt takes 100 mcg synthroid pt denies any dysphagia or neck pain. Pt has not done lab yet. pain Pt has chronic b ack and hip and knee pain pt failed NSAID and ultram Pt takes norco PRN for pain and doing ok pt denies any worsening pain pt denies any loss of bladder control. Pt has mild sciatica and leg numbness but not bad. Pt denies any loss of bowel or bladder control pain Pt has chronic b ack and hip and knee pain pt failed NSAID and ultram Pt takes norco PRN for pain and doing ok pt denies any worsening pain pt denies any loss of bladder control. HLP Pt tolerating cr estor ok Pt denies any myalgia thyroid1 Pt tolerating 10 0 mg synthroid ok Pt denies any dysphagia or neck pain or chest pain or headache GERD1 Pt has gastritis and mild GERD Pt takes pepcid daily an doing ok Pt denies any abd pain or nausea, vomiting. Pt needs refilled. hypothyroidism1 Pt takes synthro id 100 mcg daily Pt denies any dysphagia or neck pain Pt has not done lab yet. Pt denies any dysphagia or neck pain thyroid1 Pt is taking 100 mcg synthroid. pt denies any dysphagia or neck pain Pt denies any chest pain or headache HLP Pt tolerating cr estor .pt denies any myalgia pain Pt has chronic b ack and hip and knee pain pt failed NSAID and ultram Pt takes norco PRN for pain and doing ok pt denies any worsening pain pt denies any loss of bladder control. weight loss1 Pt has stated ke to diet recently and she lost 15 pounds Pt denies any nausea, vomiting, diarrhea, abd pain, early satiety, appetite loss, etc pain Pt has chronic b ack and hip and knee pain pt failed NSAID and ultram Pt takes norco PRN for pain and doing ok pt denies any worsening pain pt denies any loss of bladder control. thyroid Pt takes 88 mcg synthroid daily ,which is under replaced Pt denies any dysphagia or neck pain HLP Pt has HLP Pt ta manju feno. TG ok .TC is high. Pt denies any myalgia pain Pt has chronic b ack and hip and knee pain pt failed NSAID and ultram Pt takes norco PRN for pain and doing ok pt denies any worsening pain pt denies any loss of bladder control. HLP Pt has HLP. Pt t kannan feno Pt denies any myalgia osteopenia1 Pt has osteopeni a. Pt takes calcium and D and fosamax. Pt denies any jaw or tooth pain Pt needs D refilled. thyroid1 Pt hester hypothyroi dism. Pt takes synthroid Pt denies any dysphagia or neck pain pain Pt has chronic b ack and hip and knee pain pt failed NSAID and ultram Pt takes norco PRN for pain and doing ok pt denies any worsening pain pt denies any loss of bladder control. COPD Pt has COPD Pt n o longer smoking. pt uses airduo and incruse and she uses albuterol 1-2 per week Pt denies any hemoptysis ,worsening sob or any cough osteopenia1 Pt has osteopeni a Pt is on fosamax, calcium and D and weight bearing exercise ,Pt denies any fracture mammo pt denies any br east issue Pt needs mammo pain Pt has chronic b ack and hip and knee pain pt failed NSAID and ultram Pt takes norco PRN for pain and doing ok pt denies any worsening pain pt denies any loss of bladder control. pain Pt has chronic b ack and hip and knee pain pt failed NSAID and ultram Pt takes norco PRN for pain and doing ok pt denies any worsening pain pt denies any loss of bladder control. thryoid1 Pt has hypothyro idism .Pt takes synthroid .Pt needs refill Pt denies any dysphagia or neck pain GERD1 Pt has chronic G ERD Pt takes pepcid and doing ok pt denies any GERD or abd pain or nausea HLP Pt has HLP .Pt t kannan craft Pt denies any myalgia pain Pt has chronic b ack and hip and knee pain pt failed NSAID and ultram Pt takes norco PRN for pain and doing ok pt denies any worsening pain pt denies any loss of bladder control. pain Pt has chronic b ack and hip and knee pain pt failed NSAID and ultram Pt takes norco PRN for pain and doing ok pt denies any worsening pain pt denies any loss of bladder control. osteopenia1 Pt has osteopeni a Pt takes calcium and D and fosamax and dong ok. Pt denies any bone pain or stomach issue pain Pt has chronic b ack and hip and knee pain pt failed NSAID and ultram Pt takes norco PRN for pain and doing ok pt denies any worsening pain pt denies any loss of bladder control. COPD1 Pt has COPD Pt t kannan burris and emery and she rarely uses albuterol. Pt has not needed to use albuterol for several months. Pt denies any hemoptysis pain1 Pt has chronic b ack and hip and knee pain pt failed NSAID and ultram Pt takes norco PRN for pain and doing ok pt denies any worsening pain pt denies any loss of bladder control. pain Pt has chronic b ack and hip and knee pain pt failed NSAID and ultram Pt takes norco PRN for pain and doing ok pt denies any worsening pain pt denies any loss of bladder control. Pt just saw her ortho and received knee injection last week renal1 Pt has normal UO . Her nephrology george was postpone until two months from now pain Pt has chronic b ack and hip and knee pain pt failed NSAID and ultram Pt takes norco PRN for pain and doing ok pt denies any worsening pain pt denies any loss of bladder control. 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 Pt had benign egd Pt doing ok with pepcid Pt denies any abd pain osteopenia1 Pt has osteopeni a. Pt takes daily calcium and D and weekly vitamin D Pt is working on weight bearing exercise. Pt tolerates fosamax ok pain Pt has chronic b ack and hip and knee pain pt failed NSAID and ultram Pt takes norco PRN for pain and doing ok pt denies any worsening pain pt denies any loss of bladder control. pt failed NSAID and ultram. 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 Pt uses on average at least 5 hours nightly and she feels much more energy and better rested during the daytime. pain Pt has chronic b ack and hip and knee pain pt failed NSAID and ultram Pt takes norco PRN for pain and doing ok pt denies any worsening pain pt denies any loss of bladder control. pt failed NSAID and ultram. Pt sees ortho for knee pain GERD1 Pt has chronic G ERD Pt had benign EGD Pt has daily GERD without zantac .Pt denies any nausea, vomiting abd pain LDCT Pt needs LDCT fo r lung CA screening pt denies any hemoptysis, worsening sob or cough Pt quit smoking already. physical Pt needs annual physical Pt has chronic back and knee pain Pt takes norco PRn for pain and doing ok Pt sees ortho. Pt has low thyroid .Pt takes synthroid Pt denies any dysphagia or neck pain Pt has GERD .Pt takes pepcid and doing ok .Pt has HLP Pt takes feno Pt has COPD Pt takes incruse and airduo and she uses albuterol 1-2 per week. Pt has osteopenia. Pt takes calcium and D and she started fosamax and tolerating it ok. Pt denies any new complaints osteopenia1 Pt has osteopeni a her bone density is decreasing both on lumbar and hip Pt denies any fx. pt is taking daily calcium and D and weekly vitamin D. Pt is doing weight bearing exercise pain Pt has chronic b ack and hip and knee pain pt failed NSAID and ultram Pt takes norco PRN for pain and doing ok pt denies any worsening pain pt denies any loss of bladder control. pt failed NSAID and ultram. Pt sees ortho for knee pain lung Pt needs LDCT fo r lung CA screening Pt denies any hemoptysis Physical Pt needs annual physical. Pt has chronic back and hip and knee pain, Pt takes norco PRN for pain, Pt failed NSAID. Pt has low thyroid, Pt takes synthroid Pt has anxiety and depression Pt sees psychiatrist, Pt denies any suicidal or homicidal thought. Pt has COPD Pt takes incruse and airduo Pt uses ventolin 1-2 per week, Pt denies any hemoptysis, worsening sob or cough, Pt has osteopenia, Pt takes calcium and D. Pt denies any other complaints pain Pt has chronic b ack and hip and knee pain pt failed NSAID and ultram Pt takes norco PRN for pain and doing ok pt denies any worsening pain pt denies any loss of bladder control. pt failed NSAID and ultram. Pt sees ortho for knee pain thyroid1 Pt takes synthro id. Pt denies any neck pain, dysphagia, chest pain or headache chronic pain1 Pt has chronic b ack and hip and knee pain pt failed NSAID and ultram Pt takes norco PRN for pain and doing ok pt denies any worsening pain pt denies any loss of bladder control. pt failed NSAID and ultram. Pt sees ortho for knee pain mammo pt denies any br east issue. mammo ok pain1 Pt has chronic b ack and hip and knee pain pt failed NSAID and ultram Pt takes norco PRN for pain and doing ok pt denies any worsening pain pt denies any loss of bladder control. pt failed NSAID and ultram. Pt sees ortho for knee pain mammo pt needs mammo. pt denies any breast issue chronic pain1 Pt has chronic b ack and hip and knee pain pt failed NSAID and ultram Pt takes norco PRN for pain and doing ok pt denies any worsening pain pt denies any loss of bladder control. pt failed NSAID and ultram. Pt sees ortho for knee pain osteopenia1 Pt takes calcium and vitamin D daily pt does weight bearing exercise Pt denies any fx pain1 Pt has chronic b ack and hip and knee pain pt failed NSAID and ultram Pt takes norco PRN for pain and doing ok pt denies any worsening pain pt denies any loss of bladder control. pt failed NSAID and ultram chronic pain1 Pt has chronic b ack and hip and knee pain pt failed NSAID and ultram Pt takes norco PRN for pain and doing ok pt denies any worsening pain pt denies any loss of bladder control COPD1 pt uses incruse and Airduo and she notices much improvement of her breathing. Pt only used ventolin one time since starting airduo, Pt denies any chest pain emphysema1 Pt has emphysema , Pt uses incruse daily and ventolin Pt notices more sob lately. Pt denies any worsening exertional sob. Pt has been using ventolin 2-3 per day. Pt notices wheezing with some dry cough as well. Pt has above symptoms for 2-3 months Pt denies any hemoptysis, Pt denies any calf pain or recent travel pain1 Pt has chronic b ack and hip and knee pain Pt denies any worsening pain pt denies any loss of bladder control. Pt sees ortho for injection every 6 months Pt failed NSAID and ultram lymph1 Pt has enlarged cervical lymph, slightly tender on left side for several months, Pt denies any sore throat, ear pain, sinus Pt denies any dysphagia CT showed inflammatory change chronic pain Pt takes back an d knee pain Pt denies any worsening pain pt denies any loss of bladder control pt failed NSAID and ultram. Pt take norco PRn for pain and doing ok lymph Pt notices a lar ge nodule left submandibular area for several months. Pt denies any pain or dysphagia. thyroid Pt has low thyro id. Pt takes synthroid. Her thyroid ultrasound is normal osteopenia1 Pt has osteopeni a. Pt takes calcium and D and is working on weight bearing exercise weight loss1 Pt has been diet and exercising and intentionally losing weight pt denies any gi issue or appetite loss. pt denies any early satiety chronic pain Pt has chronic b ack and knee pain Pt denies any worsening pain. pt denies any loss of bladder control. pt failed NSAID and ultram thyroid1 Pt has elevated TPO. Pt denies any thyromegaly and dysphagia chronic pain Pt has chronic l ow back and knee pain Pt denies any worsening pain Pt denies any loss of bladder control. Pt failed NSAID and ultram Pt takes norco PRN for pain and doing ok. Pt sees ortho at [facility] for knee arthritis osteopenia1 Pt has osteopeni a Pt takes calcium and D and is working on weight bearing exercise Pt denies any fx GERD1 Pt has gastritis . Pt takes zantac and doing ok pt denies any nausea, vomiting ,abd pain COPD1 Pt has mild COPD Pt no longer smoking .pt uses incruse and she uses ventolin 1-2 every other week as needed. pt denies any acute sob. Pt denies any hemoptysis, cough or sob chronic pain pt has chronic b ack and knee pain. Pt sees ortho. Pt failed NSAID and ultram. Pt denies any worsening pain. Pt has DDD Pt denies any loss of bladder control .Pt has mild occasional sciatica thyroid Pt takes synthro id. her TSH is ok. pt denies any dysphagia or thyroid nodule sick Pt c/o mild stom ach upset sinus congestion, dry cough, chills for several days. Pt denies any fever or recent travel. Pt denies any nausea, vomiting, diarrhea . weight loss1 Pt has lost clos e to 20 pounds during last 1.5 years. Pt denies any GI issue. Pt denies any appetite loss. Pt states that she his trying to diet and exercise and weight loss pulmonary HTN pt does have sle ep apnea and she uses cpap nightly. Pt denies any chest pain renal1 Pt has borderlin e renal function and low D and borderline high glucose pt sees nephrology. Pt has normal UO COPD1 Pt has COPD. pt uses incruse and she uses ventolin 2-3 per week Pt denies any acute sob. Pt no longer smoking fatty liver1 Pt has fatty marilee er. Pt is trying to lose weight and is on low fat and low carb diet pain1 Pt has chronic b ack and knee and hip pain Pt denies any worsening pain pt denies any loss of bladder control chronic pain Pt has chronic b ack and hip pain. Pt has knee pain Pt takes norco PRN for pain Pt failed NSAID and ultram. Pt just had hip x ray done tobacco1 Pt no longer smo dawson. her LDCT is approved HLP Pt takes feno. P t denies any myalgia COPD1 Pt uses incruse. Pt rarely needs to use ventolin. 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 Pt got the CPAP and she has been trying to use it nightly but she is having difficulty with the tube. Pt has not noticed much improvement of her fatigue PHysical Pt needs annual physical. pt has sleep apnea and she will have CPAP set up today. Pt takes synthroid. Pt has COPD .pt uses incruse and she uses ventolin about 1-2 per week. Pt sees nephrology for borderline renal disease. Pt takes folic acid. pt has chronic back and hip pain Pt failed NSAID. Pt takes norco PRN for pain and doing ok. Pt denies any other complaints pain Pt has back and hip pain. 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 Pt has COPD and she uses inhaler Pt no longer smoking emphysema1 Pt uses incruse daily and she uses ventolin about 1-2 per week Pt denies any acute sob sleep apnea1 Pt recently had home sleep study which showed sleep apnea. Pt does snore and feels tired Pt needs cpap chronic pain Pt has low back and hip pain and knee pain. Pt takes norco PRN for pain Pt unable to tolerate NSAID and she failed ultram. Pt denies any loss of bladder or bowel control GERD1 Pt has GERD Pt o nly needs to take omeprazole PRN pending type of food. Pt notices GERD when she eats fatty and tomato sauce Pt denies any abdominal pain pt denies any GI bleeding or change of bowel hip pain1 Pt has not done hip x ray yet. Pt notices more right hip pain. Pt denies any injury chronic pain Pt has chronic l ow back and knee pain Pt denies any worsening pain Pt denies any loss of bladder control Pt has mild right sciatica and right leg numbness hip pain1 Pt has intermitt ent right hip pain for the past several weeks and she feels that her right hip feels like popping out when she walks but she never had right hip dislocation. Pt states that she has slightly more pain around right hip recently. Pt denies any injury sleep apnea1 Pt told me she s till has not heard from sleep center yet. Pt does snore and she feels fatigue folate1 Pt has fatigue a ll the time and she does have low folate. chronic pain Pt has chronic l ow back and knee pain Pt denies any worsening pain. Pt denies any loss of bladder control. Pt doing ok with pain meds sleep apnea1 Pt told me she h as not heard from sleep center yet. Pt does snore and has morning fatigue and has some difficulty with breathing at night GERD1 Pt has GERD. Pt takes omeprazole and she is doing much better pt denies any GERD or abd pain or nausea while on omeprazole osteopenia1 Pt has osteopeni a. Pt takes vitamin D weekly. Pt has not been taking calcium Pt denies any fx chronic pain1 Pt has low back pain and knee pain pt is seeing ortho for knee injections. Pt has arthritis. Pt failed NSAID and ultram. pt is on norco PRN for pain and doing ok renal Pt has mild lashawn l disease. Pt has normal bp. Pt used to take HCTZ but stopped long time ago. Her BP is always normal pt denies any edema snoring Additional infor mation: Pt has frequent snoring and Pt sometimes has difficulty catching her breath. pt feels tired in the morning. GERD1 Pt keeps forgett ing taking omeprazole. Pt is only on zantac and she feels daily GERD Pt denies any abd pain or nausea Pt just got her gallbladder removed pain Pt has chronic b ack and knee pain. Pt takes norco PRN for pain. Pt failed NSAID. Pt denies any worsening pain. abd pain1 Pt has right upp er quadrant pain, worse with food. pt has mild nausea with food. Pt is on omeprazole and zantac. Pt has gallstone on ultrasound GERD1 Pt has GERD Pt t akes omeprazole and zantac and doing better but still has GERd Pt had EGD 2014 which showed gastritis chrnoic pain Pt has chronic l ow back and knee pain Pt takes norco PRn for pain and doing ok. Pt denies any worsening pain. Pt failed NSAID GERD1 Pt has been taki ng a lot of tums despite taking zantac. Pt has daily GERD Pt also has right upper quadrant abdominal pain. Pt denies any nausea, vomiting Pt denies any diarrhea chest congestion1 Pt c/o product bret coughing with chest congestion. Pt notices green phlegm Pt has been using more ventolin daily in addition to incruse thyroid1 Pt has chronic l ow thyroid. 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 Her TSH was ok recently. Pt denies any dysphagia chronic pain Pt has chronic l ow back and hip and knee pain. Pt denies any worsening pain. Pt denies any loss of bladder control. Pt takes norco PRN for pain. Pt failed NSAID. Pt does have padget disease abd pain1 Pt has intermitt ent right upper quadrant pain with food with several months. Pt denies any nausea, vomiting. Pt takes zantac for GERd. Pt denies any abd pain chronic pain1 Pt has chronic l ow back and hip and knee pain. Pt takes norco PRN for pain. Pt denies any worsening pain. pt denies any sciatica or any loss of bladder control abd pain1 Pt states that a bd pain resolved with omeprazole. Pt is on zantac now for GERD and working ok chronic pain1 Pt has chronic l ow back and hip and knee pain. Pt takes norco for pain Pt takes injecitons on the knee by ortho. P denies any worsening pain abd pain1 Pt c/o acute ons et of midepigastiric pain since last night. Pt had acute onset of nausea last night. Pt denies any vomiting or diarrhea. Pt has chronic intermitetnt GERD and she takes zantac. Pt states that usually it works well for her GERd. Pt notices more GERD last night with refluex feeling. pt denies any acute pain COPD1 Pt uses incruse and she uses venotlin once per day. Pt uses incruse. Pt feels that it is helping Pt no longer smoking low folate1 Pt has low folat e and low D. Pt has not done bone density yet chronic pain Pt has chronic l ow back pain and knee pain. Pt is seeing ortho. Pt take norco PRn for pain and doing ok Pt denies any worsening pain renal1 Pt has low renal . Pt is seeing nephrology. Pt has normal UO hypothyroidism1 Pt takes 88 mcg synthroid. her TSH is normal HLp Pt has hLP. Pt t kannan craft. her lipid profie is ok chronic pain Pt has chornic l ow back and knee pain. Pt sees ortho. Pt denies any sciatica or any loss of bladder control. Pt failed NSAID. Pt tkae norco PRN for pain and doing ok HLP Pt has HLP. Pt t akes feno. Pt denies any myalgia. Pt has not done lab yet hypothyroidism Pt has low thyro id. Pt takes synthroid and doing ok pt has not done the lab yet. Pt denies any chest pain or headache GERD1 Pt has gastritis and she is doing ok with zantac Physical Pt needs annual physical Pt has chronic low back pain with mild scaitica Pt failed NSAID. Pt is not surgical candidate. Pt doing ok with norco PRn for pain. Pt also has COPD. Pt quit smoking already. Pt uses incruse and albutero. Pt uses venotlin about once per day. Pt denies any acute sob. pt c/o productive coughing with green phlegm for one week. Pt denies any fever, chest maynor or sob Pt also had barium enema study done recenlty due to incomplete colonoscopy. Pt denies any other complaints chronic pain1 pt has chronic l ow back pain Pt denies any worsening doty or any loss o bladder control. Pt has 7/10 pain. COpD1 pt has COPD and she no longer smoking. Pt has not done chest CT yet. Pt is using incruse and she feels much better. Pt has not needed to use venotlin at all last month HLP pt taks feno.Pt denies any myalgia. pt is on low fat and low carb diet COPD1 Pt has COPD of P FT. Pt has been using flovent and she states that she does not uses albuterol very often at all. Pt still smoking. Pt states that she only uses flovent PRN when she is out of breath. Pt states that she does feel out of breath daily chronic pain Pt has chronic l ow back and knee pain. Pt deneis anyw orsenign pain. Pt denies any loss o bladder cotnrol tobacco1 Pt has 30 pack y ear tobacco. Pt quit 4 years ago. Pt does have COPD. chronic pain Pt has chronic l ow back anad knee pain. Pt takes norco PRn for pain. Pt is seeing ortho for injections Pt denies any worsening pain. Pt denies any loss of bladder control asthma1 Pt had PFT done but the interpretation is not back. Pt is on flovent and albuterol and she is doing ok Pt uses albuterol on average once per day still. Pt denies any acute sob hypothyroidism1 Pt has low thyro id. Pt takes 88 mcg of synthroid and doing ok. Pt denies any chest pain or headache HLP Pt has HLP. Pt t akes feno. Pt denies any myalgia chronic pain Pt has low back and knee pain. Pt denies any worsening pain. Pt denies any loss of bladde control. Pt takes norco for pain PRN and doign ok gastritis1 Pt is not taking omeprzole. Pt has been taking zantac BID and doing ok. Pt has gastritis Pt doing ok asthma1 Pt has asthma.co pd. Pt uses flovent and venotlin. Pt uses venotlin 1-2 per day. Pt denies any acute sob. Pt states that she had PFT but i dont know the result yet. colonoscopy1 Pt had incomplet e colonoscpy. Pt had benign barium. pt denies any blood in stool, change in stool pattern. Pt denies any abd pain SOb1 Pt has exertiona l sob. Pt had cardiac echo and stress test which were all benign. Pt had PFT done. Result penindg P will do sleep study Pt denies any acute SOB. Pt uses flovent and ventolin PRN. Pt uses venotlin about 1-2 per day chronic pain1 Pt has chronic l ow back and knee pain. Pt denies any worsening pain Pt takes norco PRn for pain and doing ok GERD1 Pt has gastritis and chronic GERD Pt states that her symptoms are bad without omeprazole. Pt failed zantac. Pt denies any acute abd pain anxiety1 Pt has chronic a nxiety and depression. Pt takes buspar, amitriptyline and perphenazine. Pt also has schizophrenia disorder and she hear voices sometimes . Pt sees psychiatrist Pt denies any suicidal or homicidal thought. chronic pain1 Pt has chronic l ow back and knee pain Pt takes noco PRn and doing ok Pt denies any worsening pain asthma1 Pt has asthma/co pd. Pt uses flovent BID now. Pt uses venotlin 1-2 per day Pt just had PFT done. Pt also had cardiac echo done and she will do sleep study soon. Pt feels better with flvoent BID GERD1 Pt has gastritis . Pt has been taking omeprzole and it really helped. Pt failed zantac in the past chronic pain1 Pt has chronic l ow back and knee pain pt has mild sciatica and numbness. Pt denies any loss of bladder control. pt denies any worsening pain asthma1 Pt has asthma/co pd. Pt states that she has been using flovent only once per day and also she told me she try not to use more?? Pt also has no idea about ventolin. Pt feels SOB throughout the day and worse with exertion. Pt denies any acute SOB. Pt denies any chest pain. Pt denies any LE edema. insomania1 Pt has insomnia. Pt takes amitriptpyline. Pt denies any fatigue. Pt denies any snoring. Pt denies any restless night. Pt does not feel tired in the morning anxiety1 Pt has chornic a nxiety and depression. Pt takes klonopin, buspar and amitriptyline and something else but she does not know the name. Pt doing ok. Pt denies any suicidal or homicdial thought. Pt denies any crying spells. Pt has decent motivation asthma1 Pt has asthma. P t uses flovent and venotlin. Pt rarely uses ventolin. Her chest xray is ok HLP Pt has HLP. Pt t que feno. Pt denies any myalgia. Pt is on low fat and low carb diet hypothyroidism1 Pt takes synthro id. Ultrsaound ok. Tsh ok. Pt denies any fatigue or weight gain chronic pain Pt has back and knee pain. Pt takes norco PRN for apin and doing ok. Pt denies any worsening pain GERD1 Omeparzole helpi ng much better. Pt denies any GERD or abd pain chronic pain pt has chornic b ack and knee pain. Pt is seeing ortho at [facility] and she has chornic knee pain. Pt has cartilage damage per ortho per pt from [facility]. Pt gets injection to her knee. Pt denies any worsening pain. pt takes norco for pain. Pt failed NSAID Asthma1 Pt has asthma an d SOB. 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 Pt had chest xray done but I dont have results. Pt takes flovent and venotlin which did work well. Pt denies any acute SOB GERD1 Pt has gastritis . Pt states that zantac does not work anymore. Pt has narrowing of sigmonid colon. Pt did not do flex sig. Pt had DCBE which is also inconclusive. Pt never follwed up with GI. Pt did not do colonoscopy due to poor prep. Pt denies any GI issue thyroid Pt takes synthro id and her TSH is ok. GERD1 Pt has gastritis and she takes zantac and she denies any GERd or abd pain asthma1 Pt states that f lovent and she is feeling better. Pt uses ventolin twice per month last month chronic pain Pt has chronic l ow back and knee pain. Pt takes norco PRN for maynor and doing ok. Pt is seeing ortho for knee injections HLP Pt takes feno an d doing ok. Pt denies any myalgia chronic pain Pt has chronic l ow back and knee pain. Pt is seeing ortho at [facility]. Pt denies any loss of bowel or bladder control. Pt takes norco PRN and doing ok asthma1 Pt uses venotlin almost 2-3 per day. Pt just had chets xray done last Sunday. pt never picked up qvar Pt denies any acute sob HLP Pt takes feno. P t denies any myalgia. Pt doing ok. Pt is on low fat and low carb diet hypothyroidiwsm1 Pt still has no t done lab yet. Pt is on synthroid chronic pain1 Pt has chronic l ow back and knee and hip pain. Pt is seeing ortho at [facility] for injection of the knee now. pt was told she has arthritis of the knee. pt denies any sciatica or wrosening pain. Pt denies any swelling hypothyroidism Pt takes synthro id. Pt is on 88 mcg of synthroid. Pt denies any fatigue or chest pain renal disease1 Pt just seen nep hrology and was told to monitor and return in one year. PT was told she has mild renal disease SOB Pt has mild SOB. Pt does not smoke. pt uses ventolin 5-6 per weeks. pt notices wheezing. Physical Pt needs annual physical. Pt has HLP. Pt akes feno. Pt denies any myalgia. Pt has chronic mild renal disease Pt has appointment with nephrology next month. Pt takes synthroid. Pt denies any chset pain or headache or palpitation. Pt states that she notices some SOB intermittently especially during the cold weather. Pt denies any wheezing. Pt denies any other complaints. Pt takes zantac for GERD and doing ok. thyroid Pt takes 100 mcg of synthroid. Pt denies any chest pain, headache HLP Pt takes feno. P t denies any myalgia. Pt is on low fat and low carb diet fatigue1 Pt feels fatigue and she is on amitriptyline now from psychiatrist and she is sleeping better and she no longer want sleep study. pt denies any snorning or any trouble with breathing at night knee pian Pt has chornic l eft knee pian. hip and low back pain. Pt c/o right sciatica but no numnbness. Pt denies any worsening pain, Pt has 5/10 pain knee pain1 Pt has chronic l eft knee pain. Pt is seeing ortho and will do injection soon. Pt takes norco PRN for pain and donig ok. NO swelling or warmth sleep apnea Relevant history : a BMI of 33.30. Additional information: Pt has snoring and fatigue. Pt has appointment with sleep specialist next month. HLP Pt has HLP Pt ta kes feno. Pt denies any myalgia. Pt needs refill sleep apnea1 Pt has ? sleep a pnea and fatigue. Pt has appointment with sleep physician next month renal disease Pt has low renal function. Pt has appointment renal physician next month ago knee pain Location: knee. Additional information: Pt has chronic left knee pain. Pt takes norco for pain pt recevies injection from ortho. Pt states that left knee pain is getting wrose Pt denies any new injury. No redness or swelling. hypothyroidism1 Pt has hypothyro idism and she takes synthroid Pt denies any chest pain or headache chornic pain1 Pt has chronic k nee pain due to Degenerative disease pt is seeing ortho and she just had injections. Pt denies any worsening pain. HLP Pt has high TG. Pt takes feno. Pt denies any myalgia. Pt is on low fat and low carb diet mammo Pt has not had m ammogram since last January. Pt denies any breast issue. Pt still hast not made appointment with LITIGATION SUPPORT ANALYST yet chornic pain1 Pt has chronic l ow back and left knee pain. Pt states that left knee pain is worse and hurts daily. Pt was nonsurgical recently when she seen the ortho. Pt never did the PT. Pt states that she has 7/10 sharp pain constantly, worse with weight bearing and movement. pt denies any loss of bowel or bladder control GERD1 Pt has GERD and she takes zantac. Pt has mild gastritis. Pt denies any GERd symptoms or abd pain fatigue1 Pt feels fatigue . Pt states that she feels very tired in the morning. pt denies known snoring or any trouble with breathing at night. pt does have low thyroid but she is adequately supplemented by synthroid now chronic pain Pt has chronic l ow back and knee pain. Pt denies any worsening pain. Pt c/o left sciatica and left leg numnbess. Pt failed PT. Pt takes norco for pain PRN. PT denies any worsening pain hypothyroidism Pt takes synhthr oid. Her TSH is ok HLP Pt has hLP Her T G is much better now with feno. Pt denies any myalgia. Pt doing ok GERD1 Pt doing ok with zantac. Pt denies any abd pain renal disease1 Pt has chronic r enal disease. Pt denies any urinary output problem. pt deneis any flank pain GERD1 Pt has mild oh ritis. Pt takes omeprazole daily Pt denies any GERD symptoms hypothyroidism1 Pt is on 88 mcg of synthroid. He rthyroid is slightly low. 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 Pt denies any abd pain or any jaundice HLP Pt has HLP. Pt s tarted feno and tolerating ok. Pt denies any m yalgia. Pt is on low fat and low carb diet hypothyroidism pt is taking 88 mcg of synthroid for the past two weeks. Pt denies any palpitation, chest pain renal Pt has low renal and increase globulin. Pt denies any urinary symptoms. chronic pain Pt has chronic b ack and hip pain. Pt denies any loss of bowel or bladder control. Pt has appointment with [facility] soon HLP1 Pt has HLP. Pt h as elevated TC and TG Pt is not on any diet hypothyroidism Pt is synthroid and is under replaced pt feels tired low renal Pt has very mild low renal and mild elevation of globulin. Pt denie any urinary symtpoms. GERD1 Pt notices mild improvement of her GERD with omeprazole. Pt has gastritis on eGD and she has narrowing of colon. Pt will have colonsocopy soon. Pt denies and abd pain back pain1 Pt has chronic l ow back pain with bilateral sciatica Pt still has not received anyphone call from [facility]. Pt takes norco for pain. Pt denies any worsening pain. Pt denies any loss of bowel or bladder control. Pt feels leg numnbess both side hypothyroidism1 Pt takes synthro id. Her thyroid ultrasound benign. GERD1 Pt has GERd and gastritis on recent EGD. Pt is very confused about what happened to her EGD and colonsocopy. Pt did not do barium enema. Pt is not on any GERD meds. Pt was told everything fine from GI? renal disease Pt also has ? re nal disease. I also do not know the stage or nature of her renal disease. Pt denies any trouble with urination anemia1 Pt has anemia. P t denies any dizziness or any symptoms. Pt denies any active blood loss. Pt does not know too much about her anemia hypothyroidism Pt has hypothyro idism. Pt needs synthroid refill. Pt has not done ultrasound yet back pain1 Pt has chronic l ow back pain. Pt c/o left sciatica and left leg numnbess. Pt has ? padget disease on lumbar spien xray Pt is doing PT but not helping. Pt had 6 session of PT already but has not helped. Pt has sharp low back pain. Pt has been doing PT but not helping Pt has 7/10 pain sharp in nature back pain1 Pt has chronic a nd severe low back pain for several years Pt c/o stabbing low back pain with radiation of pain to left hip area. Pt is taking flexeril which helps her pain slighlty. Pt denies any wosrening pain padget disease Pt has lspine xr ay done recenlty which showed spondylosis. Pt has? hemangioma vs padget disease HCTZ1 Pt takes HCTZ fo r HTN. Her BP is ok today anxiety1 Pt has chronic a nxiety. Pt denies any depression or any suicidal thought. Pt takes klonpin PRN for anxiety. Pt sees psychiatrist. Pt doing ok insomnia1 Pt has insomnia. Pt takes amitriptyline qhs and doing ok. Pt denies any snornig or any trouble with breathing hypothyroidism1 Pt has hypothyro idism. Pt takes 50 mcg of synthroid. Pt denies any chest pain or palpitation HCTZ Pt has HTN and s he takes HCTZ. Her BP is ok. lumbago1 Pt has chronic l ow back pain, sharp in nature for several years .Pt c/o left sciatica. Pt denies any n umnbess. Pt has 5/10 pain Instructions Date Instruction Additional Infor matandrzej Special diet education Related t o Body mass index (BMI) 29.0-29.9, adult Increase physical activity Relat ed to Chronic pain syndrome Weight management Related to Chr onic pain syndrome Special diet education Related t o Body mass index (BMI) 29.0-29.9, adult Special diet education Related t o Body mass index (BMI) 29.0-29.9, adult Special diet education Related t o Body mass index (BMI) 29.0-29.9, adult Increase physical activity Relat ed to Chronic pain syndrome Weight management Related to Chr onic pain syndrome Special diet education Related t o Body mass index (BMI) 29.0-29.9, adult Increase physical activity Relat ed to Chronic pain syndrome Weight management Related to Chr onic pain syndrome Special diet education Related t o Body mass index (BMI) 29.0-29.9, adult Increase physical activity Relat ed to Emphysema Weight management Related to Emp hysema Weight management Related to Chr onic pain syndrome Prescribed dietary intake Relate d to Body mass index (BMI) 29.0-29.9, adult Prescribed dietary intake Relate d to Body mass index (BMI) 29.0-29.9, adult Increase physical activity Relat ed to Chronic pain syndrome Weight management Related to Chr onic pain syndrome Special diet education Related t o Body mass index (BMI) 28.0-28.9, adult Increase physical activity Relat ed to Chronic pain syndrome Weight management Related to Chr onic pain syndrome Special diet education Related t o Body mass index (BMI) 29.0-29.9, adult Weight management Related to Chr onic pain syndrome Special diet education Related t o Body mass index (BMI) 28.0-28.9, adult Increase physical activity Relat ed to Abnormal weight loss Weight management Related to Abn ormal weight loss Increase physical activity Relat ed to Abnormal weight loss Weight management Related to Abn ormal weight loss Special diet education Related t o Body mass index (BMI) 29.0-29.9, adult Increase physical activity Relat ed to Emphysema Weight management Related to Emp hysema Special diet education Related t o Body mass index (BMI) 29.0-29.9, adult Increase physical activity Relat ed to Emphysema Weight management Related to Emp hysema Special diet education Related t o Body mass index (BMI) 29.0-29.9, adult Weight management Related to Chr onic pain syndrome Special diet education Related t o Body mass index (BMI) 30.0-30.9, adult Increase physical activity Relat ed to Chronic pain syndrome Increase physical activity Relat ed to Folate deficiency Weight management Related to Fol ate deficiency Special diet education Related t o Body mass index (BMI) 29.0-29.9, adult Increase physical activity Relat ed to Chronic pain syndrome Weight management Related to Chr onic pain syndrome Special diet education Related t o Body mass index (BMI) 30.0-30.9, adult Eat smaller meals, n o eating three hours prior to bedtime. Related to GERD without esophagitis Elevate head of bed prior to sle ep. Related to GERD without esophagitis Avoid provocative fo ods: citrus, alcohol, coffee, chocolate, mints. Related to GERD without esophagitis Eat smaller meals, n o eating three hours prior to bedtime. Related to GERD without esophagitis Special diet education Related t o Body mass index (BMI) 31.0-31.9, adult Special diet education Related t o Body mass index (BMI) 31.0-31.9, adult Eat smaller meals, n o eating three hours prior to bedtime. Related to GERD without esophagitis Elevate head of bed prior to sle ep. Related to GERD without esophagitis Special diet education Related t o Body mass index (BMI) 30.0-30.9, adult Avoid provocative fo ods: citrus, alcohol, coffee, chocolate, mints. Related to GERD without esophagitis Special diet education Related t o Body mass index (BMI) 31.0-31.9, adult Weight management Related to Hyp othyroidism Prescribed Activity and Exercise Education Related to Dietary Surveillance and Counseling Prescribed Diet Educ ation/Lifestyle Education Regarding Diet Related to Dietary Surveillance and Counseling Avoid provocative fo ods: citrus, alcohol, coffee, chocolate, mints Related to GERD without esophagitis Eat smaller meals, n o eating three hours prior to bedtime Related to GERD without esophagitis Elevate head of bed prior to sle ep Related to GERD without esophagitis Increase physical activity Relat ed to Emphysema Weight management Related to Emp hysema Prescribed Activity and Exercise Education Related to Dietary Surveillance and Counseling Prescribed Diet Educ ation/Lifestyle Education Regarding Diet Related to Dietary Surveillance and Counseling Weight management Related to Hyp othyroidism Prescribed Activity and Exercise Education Related to Dietary Surveillance and Counseling Prescribed Diet Educ ation/Lifestyle Education Regarding Diet Related to Dietary Surveillance and Counseling Increase physical activity Relat ed to Hypothyroidism Prescribed Activity and Exercise Education Related to Dietary Surveillance and Counseling Prescribed Diet Educ ation/Lifestyle Education Regarding Diet Related to Dietary Surveillance and Counseling Increase physical activity Relat ed to Hyperlipidemia Weight management Related to Hyp erlipidemia Perform monthly self breast examinations. Related to Encntr for general adult medical exam w/o abnormal findings Increase activity. Related to En cntr for general adult medical exam w/o abnormal findings Prescribed Activity and Exercise Education Related to Dietary Surveillance and Counseling Prescribed Diet Educ ation/Lifestyle Education Regarding Diet Related to Dietary Surveillance and Counseling Increase physical activity Relat ed to Emphysema Weight management Related to Emp hysema Weight management Related to Emp hysema Prescribed Diet Educ ation/Lifestyle Education Regarding Diet Related to Dietary Surveillance and Counseling Prescribed Activity and Exercise Education Related to Dietary Surveillance and Counseling Increase physical activity Relat ed to Emphysema Prescribed Activity and Exercise Education Related to Dietary Surveillance and Counseling Prescribed Diet Educ ation/Lifestyle Education Regarding Diet Related to Dietary Surveillance and Counseling Increase physical activity Relat ed to Chronic pain syndrome Weight management Related to Chr onic pain syndrome Prescribed Diet Educ ation/Lifestyle Education Regarding Diet Related to Dietary Surveillance and Counseling Prescribed Activity and Exercise Education Related to Dietary Surveillance and Counseling Prescribed Diet Educ ation/Lifestyle Education Regarding Diet Related to Dietary Surveillance and Counseling Prescribed Activity and Exercise Education Related to Dietary Surveillance and Counseling Prescribed Activity and Exercise Education Related to Dietary Surveillance and Counseling Prescribed Diet Educ ation/Lifestyle Education Regarding Diet Related to Dietary Surveillance and Counseling Prescribed Activity and Exercise Education Related to Dietary Surveillance and Counseling Prescribed Diet Educ ation/Lifestyle Education Regarding Diet Related to Dietary Surveillance and Counseling Prescribed Activity and Exercise Education Related to Dietary Surveillance and Counseling Prescribed Diet Educ ation/Lifestyle Education Regarding Diet Related to Dietary Surveillance and Counseling Prescribed Activity and Exercise Education Related to Dietary Surveillance and Counseling Prescribed Diet Educ ation/Lifestyle Education Regarding Diet Related to Dietary Surveillance and Counseling Prescribed Activity and Exercise Education Related to Dietary Surveillance and Counseling Prescribed Diet Educ ation/Lifestyle Education Regarding Diet Related to Dietary Surveillance and Counseling Prescribed Activity and Exercise Education Related to Dietary Surveillance and Counseling Prescribed Diet Educ ation/Lifestyle Education Regarding Diet Related to Dietary Surveillance and Counseling Prescribed Activity and Exercise Education Related to Dietary Surveillance and Counseling Prescribed Diet Educ ation/Lifestyle Education Regarding Diet Related to Dietary Surveillance and Counseling Prescribed Activity and Exercise Education Related to Dietary Surveillance and Counseling Prescribed Diet Educ ation/Lifestyle Education Regarding Diet Related to Dietary Surveillance and Counseling Prescribed Activity and Exercise Education Related to Dietary Surveillance and Counseling Prescribed Diet Educ ation/Lifestyle Education Regarding Diet Related to Dietary Surveillance and Counseling Prescribed Diet Educ ation/Lifestyle Education Regarding Diet Related to Dietary Surveillance and Counseling Prescribed Activity and Exercise Education Related to Dietary Surveillance and Counseling Prescribed Activity and Exercise Education Related to Dietary Surveillance and Counseling Prescribed Diet Educ ation/Lifestyle Education Regarding Diet Related to Dietary Surveillance and Counseling Prescribed Diet Educ ation/Lifestyle Education Regarding Diet Related to Dietary Surveillance and Counseling Prescribed Activity and Exercise Education Related to Dietary Surveillance and Counseling Prescribed Activity and Exercise Education Related to Dietary Surveillance and Counseling Prescribed Diet Educ ation/Lifestyle Education Regarding Diet Related to Dietary Surveillance and Counseling Prescribed Diet Educ ation/Lifestyle Education Regarding Diet Related to Dietary Surveillance and Counseling Prescribed Activity and Exercise Education Related to Dietary Surveillance and Counseling Prescribed Activity and Exercise Education Related to Dietary Surveillance and Counseling Prescribed Diet Educ ation/Lifestyle Education Regarding Diet Related to Dietary Surveillance and Counseling Prescribed Activity and Exercise Education Related to Dietary Surveillance and Counseling Prescribed Diet Educ ation/Lifestyle Education Regarding Diet Related to Dietary Surveillance and Counseling Prescribed Activity and Exercise Education Related to Dietary Surveillance and Counseling Prescribed Diet Educ ation/Lifestyle Education Regarding Diet Related to Dietary Surveillance and Counseling Prescribed Activity and Exercise Education Related to Dietary Surveillance and Counseling Prescribed Diet Educ ation/Lifestyle Education Regarding Diet Related to Dietary Surveillance and Counseling Prescribed Diet Educ ation/Lifestyle Education Regarding Diet Related to Dietary Surveillance and Counseling Prescribed Activity and Exercise Education Related to Dietary Surveillance and Counseling Prescribed Activity and Exercise Education Related to Dietary Surveillance and Counseling Prescribed Diet Educ ation/Lifestyle Education Regarding Diet Related to Dietary Surveillance and Counseling Assessments Type Assessment Date assessment Chronic pain syndrome assessment Generalized Anxiety Disorder March assessment Other fecal abnormalities Mental Status Date Cognitive Assessment Orientation - Ballinger ed to time, place, person, situation.
[2025-04-20 07:10] VITALS: BP 122/96; PULSE 97; RESP 18; TEMP 36.3; O2SAT 100; BMI 27.0
[2025-04-20] MEDS: LACTATED RINGERS 1,000 ML 150 ML IV CONT (07:26)
--- NOTE | 2025-04-20 07:38 | P.PNAN_ITS ---
Anes - Initial Pre Proc Eval Procedure: Operation Date: 04/20/25 08:30 Proposed Procedures p Colonoscopy - Willie Barker MD Date/Time: 04/20/25 07:38 Surgeon: Willie Barker MD Pre Op Diagnosis: Positive Cologuard Patient Data Age: 64 Gender: F Height: 1.6 m Weight: 69.3 kg Last Vital Signs Temp 36.3 C L 04/20/25 07:10 Pulse 97 04/20/25 07:10 Resp 18 04/20/25 07:10 BP 122/96 H 04/20/25 07:10 Pulse Ox 100 04/20/25 07:10 O2 Del Method Room Air 04/20/25 07:10 Allergies Allergy/AdvReac Type Severity Reaction Status Date / Time codeine AdvReac NAUSEA Verified 04/20/25 07:16 WITH VOMITING Home Medications ?Medication ?Instructions ?Recorded ?Confirmed ?Type albuterol sulfate 90 mcg/actuation 1 inh inhalation DAILY 04/16/25 04/20/25 History aerosol inhaler buspirone 10 mg tablet 10 mg PO DAILY 04/16/25 04/20/25 History hydrocodone 7.5 mg-acetaminophen 1 tablet PO DAILY 04/16/25 04/20/25 History 325 mg tablet levothyroxine 100 mcg tablet 100 mcg PO DAILY 04/16/25 04/20/25 History levothyroxine 88 mcg tablet 88 mcg PO DAILY 04/16/25 04/20/25 History pregabalin 75 mg capsule 75 mg PO DAILY 04/16/25 04/20/25 History rosuvastatin 10 mg tablet 10 mg PO DAILY 04/16/25 04/20/25 History umeclidinium 62.5 mcg/actuation 1 inh inhalation Q24H 04/16/25 04/20/25 History blister powder for inhalation (Incruse Ellipta) Patient hx anesthesia problems: none Family hx anesthesia problems: none Results Review: All pre-operative results and documents have been reviewed as part of the pre- operative evaluation. [facility] Past Medical History Medical History (Updated 04/20/25 @ 07:39 by Colt Flores MD) Hyperlipidemia Anxiety COPD (chronic obstructive pulmonary disease) Surgical History Surgical History (Updated 04/20/25 @ 07:41 by Colt Flores MD) History of cholecystectomy Family History Family History Sibling Patient's sister is in good health Patient's brother is in good health Mother Family history of diabetes mellitus in first degree relative Other Hypertension Social History Social History Smoking packs per day: 1 Smoking cigarettes per day: 20.0 Years smoked: 50 Smoking pack-years: 50.00 Smoking status: Former smoker Tobacco type: cigarettes Smoking end date: 11/19/09 Alcohol intake: current Living arrangements: with family Josie Smith Final PreProcedure Day of Procedure 04/20/25 07:38 Patient weight: overweight Heart: regular rate and rhythm Lungs: clear to auscultation Airway: Mallampati scale class II Neurological: alert and oriented Last oral intake: >/= 8 hours ASA classification: III Emergent: no Anesthetic plan: proceed Anesthesia type and monitoring: general GIVS and standard monitoring Results Review: All pre-operative results and documents have been reviewed as part of the pre- operative evaluation. Informed Consent: The patient's anesthetic plan and its attendant risks and benefits were discussed with the patient/family/POA. Questions were solicited and answers provided to the satisfaction of the patient/family/POA.
--- NOTE | 2025-04-20 08:00 | PM.HPGS ---
History of Present Illness History of Present Illness Consent: Risks, benefits, and alternatives have been discussed and questions answered. Patient agrees to proceed with procedure. Chief complaint: Positive Cologuard Narrative: Sara Paulson is a 64 year old female here for + cologuard, had colonoscopy few years ago Review of Systems Review of Systems: All systems reviewed & are unremarkable except as noted in HPI and below PMFSH Past Medical History Medical History (Updated 04/20/25 @ 08:01 by Willie Barker MD) Positive colorectal cancer screening using Cologuard test Hyperlipidemia Anxiety COPD (chronic obstructive pulmonary disease) Surgical History Surgical History (Updated 04/20/25 @ 07:41 by Colt Flores MD) History of cholecystectomy Family History Family History Sibling Patient's sister is in good health Patient's brother is in good health Mother Family history of diabetes mellitus in first degree relative Other Hypertension Social History Social History Smoking packs per day: 1 Smoking cigarettes per day: 20.0 Years smoked: 50 Smoking pack-years: 50.00 Smoking status: Former smoker Tobacco type: cigarettes Smoking end date: 11/19/09 Alcohol intake: current Living arrangements: with family Meds Home Medications and Allergies Home Medications ?Medication ?Instructions ?Recorded ?Confirmed ?Type albuterol sulfate 90 mcg/actuation 1 inh inhalation DAILY 04/16/25 04/20/25 History aerosol inhaler buspirone 10 mg tablet 10 mg PO DAILY 04/16/25 04/20/25 History hydrocodone 7.5 mg-acetaminophen 1 tablet PO DAILY 04/16/25 04/20/25 History 325 mg tablet levothyroxine 100 mcg tablet 100 mcg PO DAILY 04/16/25 04/20/25 History levothyroxine 88 mcg tablet 88 mcg PO DAILY 04/16/25 04/20/25 History pregabalin 75 mg capsule 75 mg PO DAILY 04/16/25 04/20/25 History rosuvastatin 10 mg tablet 10 mg PO DAILY 04/16/25 04/20/25 History umeclidinium 62.5 mcg/actuation 1 inh inhalation Q24H 04/16/25 04/20/25 History blister powder for inhalation (Incruse Ellipta) Allergies Allergy/AdvReac Type Severity Reaction Status Date / Time codeine AdvReac NAUSEA Verified 04/20/25 07:16 WITH VOMITING Vital Signs Vital Signs - 24 hr 04/20/25 07:10 Temperature 97.3 F L Pulse Rate 97 Respiratory Rate 18 Blood Pressure 122/96 H Pulse Oximetry 100 Oxygen Delivery Room Air Exam Const: General: comfortable and no acute distress HENMT: Face/Nose/Sinus: Normal nares present Eyes: General: appearance normal, both eyes and all related structures Neck: Neck: no JVD Resp: Auscultation: clear to auscultation bilaterally Cardio: Rate: regular rate Rhythm: regular rhythm GI: Inspection: non-distended GI Palp: Yes Soft to palpation Skin: General skin exam: normal color Neuro: General: gait normal Speech: normal speech Extrem: General: normal to inspection Psych: Mental Status: mental status grossly normal Assessment and Plan Assessment and plan (1) Positive colorectal cancer screening using Cologuard test: Code(s): R19.5 - Other fecal abnormalities Status: Acute Assessment and Plan: colonoscopy
--- NOTE | 2025-04-20 08:14 | S_PTH ---
PATIENT: Sara Paulson LOC: [facility]#:[id number] AGE/SX: 64/F ROOM: RE04/20/[address]: Willie Barker MD : 1960 BED: DIS: 04/20/2025 SPEC #: [id number] RECD: 04/20/25 10:33 STATUS: MARTIN ADAMSON #: [id number] RUI: 04/20/25 08:[address]: Willie Barker DEPT: [facility] Surgical RECD BY: Marylou Anderson ENTERED: 04/20/25 10:33 SP TYPE: Surgical OTHR DR: Dave Barrios MD Tissues: A - Colon Polypectomy Procedures: Hematoxylin and Eosin Stain Gross and Microscopic Level 4
[2025-04-20 08:15] VITALS: BP 92/60; PULSE 91; RESP 19; O2SAT 98
[2025-04-20 08:25] VITALS: BP 107/66; PULSE 84; RESP 20; O2SAT 100
[2025-04-20 08:35] VITALS: BP 106/68; PULSE 70; RESP 26; O2SAT 100
== END 2025-04-20 08:44 | disposition home or self-care (01) ==
PROVIDERS: PCP Emergency Medicine; Referring Provider Emergency Medicine; Visit Provider Internal Medicine Gastroenterology
PROC: 0DJD8ZZ Inspection of Lower Intestinal Tract, Via Natural or Artificial Opening Endoscopic (ICD-10-PCS; CPT 45378; principal; 2025-04-20 08:30)
DX: D12.5 Benign neoplasm of sigmoid colon (principal); K64.8 Other hemorrhoids; E78.5 Hyperlipidemia, unspecified; F41.9 Anxiety disorder, unspecified; J44.9 Chronic obstructive pulmonary disease, unspecified; Z79.51 Long term (current) use of inhaled steroids; Z79.891 Long term (current) use of opiate analgesic; Z90.49 Acquired absence of other specified parts of digestive tract; Z87.891 Personal history of nicotine dependence
CPT/HCPCS: 45385; 88305; J2704; J7120

== ENCOUNTER 2025-07-14 15:11 | Outpatient (CLI) | payer MEDICARE, MEDICAID, SELFPAY ==
--- OUTSIDE RECORDS SUMMARY | 2025-06-18 05:34 | XMS_ITS | Continuity of Care Document ---
Author Organization [facility] Address [address] [place] [address] [place] [address] Phone Care Team Providers Care Finance Effectiveness Manager Name Role Phone Dave Barrios MD Unavailable Unavailable Allergies, Adverse Reactions, Alerts Substance Reaction Status Criticality cat dander Red EyesItchingWatery eye Active No Information codeine Active No Information Medications Medication Instructions Dosage Effective Dates (start - stop) Status Comments albuterol sulfate HFA 90 mcg/actuation aerosol inhaler inhale 1 puff by inhalation route every 4 - 6 hours as needed as needed 1 puff - Active PRN for sob prednisone 20 mg tablet take 3 Tablet by oral route every day 60 MG - Active Lyrica 75 mg capsule take 1 capsule by oral route 2 times every day 75 MG - Active avoid driving or operate machines hydrocodone 7.5 mg-acetaminophen 325 mg tablet take 1 tablet by oral route 3 times every day as needed for pain as needed 1 tablet - Active PRN for pain, avoid driving or operate machines Breztri Aerosphere 160 mcg-9mcg-4.8mcg/ac tuation HFA aerosol inhaler inhale 2 puff by inhalation route 2 times every day in the morning and evening 2.00 puff - Active buspirone 15 mg tablet take 1 tablet by oral route 2 times every day 15 MG - Active Zoloft 100 mg tablet take 1 tablet by oral route every day 100 MG - Active rosuvastatin 10 mg tablet take 1 tablet by oral route every day 10 MG - Active Synthroid 100 mcg tablet take 1 tablet by oral route every other day - Active meloxicam 15 mg tablet take 1 tablet by oral route every day 15 MG - Active Synthroid 88 mcg tablet take 1 tablet by oral route every other day - Active albuterol sulfate HFA 90 mcg/actuation [...] Date OFFICE/OUTPATIENT VISIT, EST OFFICE/OUTPATIENT VISIT, EST OFFICE/OUTPATIENT [...] Providers Copied on Encounter OFFICE/OUTPA TIENT VISIT, [facility], [address] [place], [place], [address], tel:[phone] [facility] anxiety1 (chief complaint) pain (chief complaint) COPD1 (chief complaint) varicose1 (chief complaint) Chronic pain syndromeGeneralized Anxiety DisorderVaricose veins of bilateral lower extremities with painCentrilobular emphysema 5 Denis Acosta. [address] [place], [place], [address] , [place]. tel:[phone] OFFICE/OUTPA TIENT VISIT, [facility], [address] [place], [place], [address], [place] tel:[phone] [facility] anxiety1 (chief complaint) thyroid1 (chief complaint) pain (chief complaint) HLP (chief complaint) varicose1 (chief complaint) Chronic pain syndromeGeneralized Anxiety DisorderHashimoto's thyroiditisVaricose veins of bilateral lower extremities with painMixed hyperlipidemia 5 Denis Acosta. [address], [place], [place], [address] , [place]. tel:[phone] OFFICE/OUTPA TIENT VISIT, EST [facility], [address], [place], [place], [address], [place] tel:[phone] [facility] anxiety1 (chief complaint) pain (chief complaint) polyp1 (chief complaint) Chronic pain syndromeGeneralized Anxiety DisorderPolyp of colonEncounter for oth screening for malignant neoplasm of breast Corwin-0 6- 5 Denis Oliver [address], [address], [place], [place], [address] , [place]. tel:[phone] OFFICE/OUTPA TIENT VISIT, EST [facility], [address], [place], [place], [address], [place] tel:[phone] [facility] anxiety1 (chief complaint) pain (chief complaint) colonguard 1 (chief complaint) Chronic pain syndromeGeneralized Anxiety DisorderOther fecal abnormalities March-0 9- 5 Denis Oliver [address], [address], [place], [place], [address] , [place]. tel:[phone] OFFICE/OUTPA TIENT VISIT, EST [facility], [address], [place], [place], [address], [place] tel:[phone] [facility] anxiety1 (chief complaint) pain1 (chief complaint) Generalized Anxiety DisorderChronic pain syndrome Apr- 0- 5 Denis Oliver [address], [address], [place], [place], [address] , [place]. tel:[phone] PREV VISIT, EST, AGE 40-64 [facility], [address], [place], [place], [address], [place] tel:[phone] [facility] physical (chief complaint) Encounter for general adult medical examination without abnormal findings Jan-2 0- 5 Denis Oliver [address], [address], [place], [place], [address] , [place]. tel:[phone] OFFICE/OUTPA TIENT VISIT, EST [facility], [address], [place], [place], [address], [place] tel:[phone] [facility] pain (chief complaint) emphysema1 (chief complaint) Chronic pain syndromeCentrilobul ar emphysema 5 Denis Acosta. [address], [place], [place], [address] , [place]. tel:[phone] OFFICE/OUTPA TIENT VISIT, [facility], [address], [place], [place], [address], [place] tel:[phone] [facility] pain (chief complaint) osteopenia 1 (chief complaint) Chronic pain syndromeOther specified disorder of bone density 5 Denis Acosta. [address], [address], [place], [place], [address] , [place]. tel:[phone] OFFICE/OUTPA TIENT VISIT, [facility], [address], [place], [address], [place] tel:[phone] [facility] thyroid1 (chief complaint) HLP (chief complaint) osteopenia 1 (chief complaint) pain (chief complaint) anxiety1 (chief complaint) MCV (chief complaint) Chronic pain syndromeGeneralized Anxiety DisorderHashimoto's thyroiditisMixed hyperlipidemiaOther specified disorder of bone densityOther specified disease of blood 4 Denis Acosta. [address], [address], [place], [place], [address] , [place]. tel:[phone] OFFICE/OUTPA TIENT VISIT, [facility], [address] [place], [address], [place] tel:[phone] [facility] pain (chief complaint) anxiety1 (chief complaint) Chronic pain syndromeGeneralized Anxiety Disorder 4 Denis Acosta. [address], [address], [place], [place], [address] , [place]. tel:[phone] OFFICE/OUTPA TIENT VISIT, [facility], [address], [place], [address], [place] tel:[phone] [facility] pain (chief complaint) anxiety1 (chief complaint) Hashimoto1 (chief complaint) HLP (chief complaint) Mixed hyperlipidemiaHashi roopa's thyroiditisChronic pain syndromeGeneralized Anxiety DisorderOther disorders of phosphorus metabolism 4 Denis Acosta. [address], [address], [place], [place], [address] , [place]. tel:[phone] OFFICE/OUTPA TIENT VISIT, [facility], [address], [place], [address], [place] tel:[phone] [facility] pain1 (chief complaint) anxiety1 (chief complaint) Chronic pain syndromeGeneralized Anxiety Disorder 4 Denis Acosta. [address], [address], [place], [address] , [place]. tel:[phone] OFFICE/OUTPA TIENT VISIT, [facility], [address], [place], [place], [address], [place] tel:[phone] [facility] osteopenia 1 (chief complaint) anxiety1 (chief complaint) pain (chief complaint) Chronic pain syndromeGeneralized Anxiety DisorderOther specified disorder of bone density 4 Denis Acosta. [address], [address], [place], [place], [address] , [place]. tel:[phone] OFFICE/OUTPA TIENT VISIT, [facility], [address], [place], [place], [address], [place] tel:[phone] [facility] anxiety1 (chief complaint) maynor (chief complaint) HLP (chief complaint) tachycardi a1 (chief complaint) Chronic pain syndromeGeneralized Anxiety DisorderTachycardia Mixed hyperlipidemia 4 Denis Acosta. [address], [address], [place], [address] , [place]. tel:[phone] OFFICE/OUTPA TIENT VISIT, [facility], [address], [place], [place], [address], [place] tel:[phone] [facility] pain1 (chief complaint) phos1 (chief complaint) hashimoto1 (chief complaint) anxiety1 (chief complaint) MCV (chief complaint) Chronic pain syndromeGeneralized Anxiety DisorderHashimoto's thyroiditisOther disorders of phosphorus metabolismPain in left shoulder 4 Denis Oliver [address], [place], [place], [address] , [place]. tel:[phone] OFFICE/OUTPA TIENT VISIT, [facility], [address] [place], [address], [place] tel:[phone] [facility] anxiety1 (chief complaint) COPD1 (chief complaint) pain (chief complaint) Chronic pain syndromeGeneralized Anxiety DisorderOther specified disorder of bone densityCentrilobula r emphysema 4 Denis Oliver [address], [address], [place], [place], [address] , [place]. tel:[phone] OFFICE/OUTPA TIENT VISIT, [facility], [address] [place], [address], [place] tel:[phone] [facility] anxiety1 (chief complaint) pain (chief complaint) thyroid1 (chief complaint) MCV (chief complaint) Generalized Anxiety DisorderChronic pain syndromeOther specified disease of bloodAlcohol abuse, in remissionHashimoto' s thyroiditis 4 Denis Oliver [address], [place], [place], [address] , [place]. tel:[phone] OFFICE/OUTPA TIENT VISIT, [facility], [address] [place], [address], [place] tel:[phone] [facility] anxiety1 (chief complaint) knee pain1 (chief complaint) pain (chief complaint) osteopenia 1 (chief complaint) Chronic pain syndromeGeneralized Anxiety DisorderOther specified disorder of bone densityOsteoarthrit is of knee 4 Denis Oliver [address], [place], [place], [address] , [place]. tel:[phone] OFFICE/OUTPA TIENT VISIT, [facility], [address] [place], [address], [place] tel:[phone] [facility] pain (chief complaint) HLP (chief complaint) MCV (chief complaint) anxiety1 (chief complaint) Other specified disease of bloodMixed hyperlipidemiaChron ic pain syndromeAlcohol abuse, in remissionGeneralize d Anxiety DisorderOther specified disorder of bone density 4 Denis Oliver [address], [place], [place], [address] , [place]. tel:[phone] OFFICE/OUTPA TIENT VISIT, [facility], [address], [place], [address], [place] tel:[phone] [facility] thyroid1 (chief complaint) UTI1 (chief complaint) cocaine1 (chief complaint) Hudson's thyroiditisAcute cystitis without hematuriaCocaine abuse, uncomplicatedOther specified disease of blood 4 Denis Acosta. [address], [address], [place], [place], [address] , [place]. [phone] OFFICE/OUTPA TIENT VISIT, [facility], [address], [place], [address], [place] tel:[phone] [facility] pain (chief complaint) Chronic pain syndrome 4 Denis Oliver [address], [address], [place], [place], [address] , [place]. tel:[phone] PREV VISIT, EST, AGE 40-64 [facility], [address], [place], [place], [address], [place] tel:[phone] [facility] physical (chief complaint) Encounter for general adult medical exam w abnormal findingsChronic pain syndromeGERD without esophagitisHashimot o's thyroiditisCentrilo bular emphysemaMixed hyperlipidemiaOther specified disorder of bone density 4 Denis Oliver [address], [address], [place], [place], [address] , [place]. tel:[phone] OFFICE/OUTPA TIENT VISIT, [facility], [address], [place], [address], [place] tel:[phone] [facility] pain (chief complaint) COPD1 (chief complaint) Centrilobular emphysemaChronic pain syndrome 3 Denis Acosta. [address], [address], [place], [place], [address] , [place]. tel:[phone] OFFICE/OUTPA TIENT VISIT, [facility], [address], [place], [place], [address], [place] tel:[phone] [facility] pain (chief complaint) Chronic pain syndromeTobacco use 3 Denis Acosta. [address], [address], [place], [place], [address] , [place]. tel:[phone] OFFICE/OUTPA TIENT VISIT, [facility], [address], [place], [place], [address], [place] tel:[phone] [facility] pain (chief complaint) sleep apnea1 (chief complaint) GERD1 (chief complaint) Chronic pain syndromeObstructive sleep apnea hypopneaGERD without esophagitisTobacco use 3 Denis Acosta. [address], [address], [place], [place], [address] , [place]. tel:[phone] OFFICE/OUTPA TIENT VISIT, [facility], [address], [place], [place], [address], [place] tel:[phone] [facility] pain (chief complaint) Chronic pain syndromeObstructive sleep apnea (adult) (pediatric) 3 Denis Acosta. [address], [address], [place], [place], [address] , [place]. tel:[phone] OFFICE/OUTPA TIENT VISIT, [facility], [address], [place], [place], [address], [place] tel:[phone] [facility] pain (chief complaint) sleep apnea1 (chief complaint) Primary central sleep apneaChronic pain syndrome 3 Denis Acosta. [address], [address], [place], [place], [address] , [place]. tel:[phone] OFFICE/OUTPA TIENT VISIT, [facility], [address], [place], [place], [address], [place] tel:[phone] [facility] pain (chief complaint) HLP (chief complaint) Chronic pain syndromeMixed hyperlipidemia Jun-0 3 Denis Acosta. [address], [address], [place], [place], [address] , [place]. tel:[phone] OFFICE/OUTPA TIENT VISIT, [facility], [address], [place], [place], [address], [place] tel:[phone] [facility] pain (chief complaint) Chronic pain syndrome 3 Denis Acosta. [address], [address], [place], [place], [address] , [place]. tel:[phone] OFFICE/OUTPA TIENT VISIT, [facility], [address], [place], [place], [address], [place] tel:[phone] [facility] pain (chief complaint) hand pain1 (chief complaint) GERD1 (chief complaint) Chronic pain syndromeGERD without esophagitisPain in right hand 3 Denis Acosta. [address], [address], [place], [place], [address] , [place]. tel:[phone] OFFICE/OUTPA TIENT VISIT, [facility], [address], [place], [place], [address], [place] tel:[phone] [facility] pain (chief complaint) COPD1 (chief complaint) hand pain1 (chief complaint) Chronic pain syndromeCentrilobul ar emphysemaPain in right hand 3 Denis Acosta. [address], [place], [place], [address] , [place]. tel:[phone] OFFICE/OUTPA TIENT VISIT, [facility], [address], [place], [place], [address], [place] tel:[phone] [facility] pain (chief complaint) Chronic pain syndrome 3 Denis Acosta. [address], [address], [place], [place], [address] , [place]. tel:[phone] OFFICE/OUTPA TIENT VISIT, [facility], [address], [place], [place], [address], [place] tel:[phone] [facility] pain (chief complaint) GERD1 (chief complaint) TB (chief complaint) Chronic pain syndromeGERD w/o esophagitisEncounte r for screening for respiratory TB 3 Denis Acosta. [address], [place], [place], [address] , [place]. tel:[phone] OFFICE/OUTPA TIENT VISIT, [facility], [address], [place], [place], [address], [place] tel:[phone] [facility] pain (chief complaint) MCV (chief complaint) osteopenia 1 (chief complaint) LFT1 (chief complaint) Other specified disorder of bone densityChronic pain syndromeOther specified abnormal findings of blood chemistryLiver disease 3 Denis Acosta. [address], [place], [place], [address] , [place]. tel:[phone] OFFICE/OUTPA TIENT VISIT, [facility], [address], [place], [place], [address], [place] tel:[phone] [facility] hashimoto1 (chief complaint) pain (chief complaint) osteopenia 1 (chief complaint) Other specified disorder of bone densityHashimoto's thyroiditisChronic pain syndrome 3 Denis Acosta. [address], [place], [place], [address] , [place]. tel:[phone] OFFICE/OUTPA TIENT VISIT, [facility], [address], [place], [place], [address], [place] tel:[phone] [facility] pain (chief complaint) thyroid1 (chief complaint) Hudson's thyroiditisChronic pain syndrome 2 Denis Acosta. [address], [place], [place], [address] , [place]. tel:[phone] OFFICE/OUTPA TIENT VISIT, EST [facility], [address], [place], [address], [place] tel:[phone] [facility] pain (chief complaint) emphysema1 (chief complaint) hypothyroi dism1 (chief complaint) Centrilobular emphysemaHashimoto' s thyroiditisChronic pain syndromeOther specified abnormal findings of blood chemistry 2 Denis Acosta. [address], [place], [place], [address] , [place]. tel:[phone] PREV VISIT, EST, AGE 40-64 [facility], [address], [place], [address], [place] tel:[phone] [facility] physical (chief complaint) Encounter for general adult medical exam w abnormal findingsMixed hyperlipidemiaHypot hyroidismOther specified disorder of bone densityOther specified abnormal findings of blood chemistryChronic pain syndromeCentrilobul ar emphysemaPrimary central sleep apnea 2 Denis Acosta. [address], [address], [place], [place], [address] , [place]. tel:[phone] OFFICE/OUTPA TIENT VISIT, EST [facility], [address], [place], [address], [place] tel:[phone] [facility] pain (chief complaint) weight loss1 (chief complaint) Chronic pain syndromeAbnormal weight loss 2 Denis Acosta. [address], [place], [place], [address] , [place]. tel:[phone] OFFICE/OUTPA TIENT VISIT, EST [facility], [address], [place], [place], [address], [place] tel:[phone] [facility] pain (chief complaint) HLP (chief complaint) hypothyroi dism1 (chief complaint) Mixed hyperlipidemiaHypot hyroidismChronic pain syndrome 2 Barrios Dave. [address], [address], [place], [place], [address] , [place]. tel:[phone] OFFICE/OUTPA TIENT VISIT, [facility], [address], [place], [place], [address], [place] tel:[phone] [facility] pain (chief complaint) thyroid (chief complaint) HLP (chief complaint) Chronic pain syndromeMixed hyperlipidemiaHashi roopa's thyroiditisEncounte r for oth screening for malignant neoplasm of breast 2 Barrios Dave. [address], [address], [place], [place], [address] , [place]. tel:[phone] OFFICE/OUTPA TIENT VISIT, [facility], [address], [place], [place], [address], [place] tel:[phone] [facility] pain (chief complaint) osteopenia 1 (chief complaint) sleep apnea1 (chief complaint) Sleep apneaChronic pain syndromeOther specified disorder of bone density 2 Barrios Dave. [address], [address], [place], [place], [address] , [place]. tel:[phone] OFFICE/OUTPA TIENT VISIT, [facility], [address], [place], [place], [address], [place] tel:[phone] [facility] pain (chief complaint) osteopenia 1 (chief complaint) sleep apnea1 (chief complaint) Chronic pain syndromeOther specified disorder of bone densityPulmonary hypertensionSleep apnea 2 Barrios Dave. [address], [address], [place], [place], [address] , [place]. tel:[phone] OFFICE/OUTPA TIENT VISIT, [facility], [address], [place], [place], [address], [place] tel:[phone] [facility] pain (chief complaint) GERD (chief complaint) GERD1 (chief complaint) GERD without esophagitisChronic pain syndrome 2 Barrios Dave. [address], [place], [place], [address] , [place]. [phone] OFFICE/OUTPA TIENT VISIT, EST [facility], [address], [place], [place], [address], [place] tel:[phone] [facility] pain (chief complaint) osteopenia 1 (chief complaint) COPD1 (chief complaint) Chronic pain syndromeEmphysemaVi tamin D deficiency, unspecifiedOther specified disorder of bone densityAbnormal weight loss 0 2 Denis Dave. [address], [address], [place], [place], [address] , [place]. [phone] OFFICE/OUTPA TIENT VISIT, EST [facility], [address], [place], [place], [address], [place] tel:[phone] [facility] thyroid1 (chief complaint) osteopenia 1 (chief complaint) weight loss1 (chief complaint) pain (chief complaint) Abnormal weight lossChronic pain syndromeOth disrd of bone density and structure, multiple sitesHypothyroidism Fe 2 Denis Dave. [address], [place], [place], [address] , [place]. [phone] OFFICE/OUTPA TIENT VISIT, EST [facility], [address], [place], [place], [address], [place] tel:[phone] [facility] pain (chief complaint) thyroid1 (chief complaint) weight los1 (chief complaint) osteopenia 1 (chief complaint) GERD1 (chief complaint) Abnormal weight lossHypothyroidismO th disrd of bone density and structure, multiple sitesGERD without esophagitisChronic pain syndrome 2 Denis Dave. [address], [place], [place], [address] , [place]. tel:[phone] PREV VISIT, EST, AGE 40-64 [facility], [address], [place], [place], [address], [place] tel:[phone] [facility] physical (chief complaint) Encounter for general adult medical exam w abnormal findingsHyperlipide miaAbnormal weight lossEmphysemaHypoth yroidismOth disrd of bone density and structure, multiple sitesPulmonary hypertension 1 Denis Oliver [address] [place], [address] , [place]. tel:[phone] OFFICE/OUTPA TIENT VISIT, [facility], [address] [place], [address], [place] tel:[phone] [facility] pain (chief complaint) HLP (chief complaint) weight loss1 (chief complaint) tobacco1 (chief complaint) HyperlipidemiaTobac co useChronic pain syndromeAbnormal weight lossHypothyroidism 1 Denis Oliver [address] [place], [address] , [place]. [phone] OFFICE/OUTPA TIENT VISIT, [facility], [address] [place], [address], [place] tel:[phone] [facility] thryoid1 (chief complaint) pain (chief complaint) tobacco1 (chief complaint) Chronic pain syndromeHypothyroid ismTobacco use 1 Denis Oliver [address], [place], [address] , [place]. tel:[phone] OFFICE/OUTPA TIENT VISIT, [facility], [address] [place], [address], [place] tel:[phone] [facility] HLP (chief complaint) hypothyroi dism1 (chief complaint) pain (chief complaint) COPD1 (chief complaint) HypothyroidismHyper lipidemiaEmphysemaC hronic pain syndromeTobacco use 1 Denis Oliver [address] [place], [place], [address] , [place]. tel:[phone] OFFICE/OUTPA TIENT VISIT, [facility], [address] [place], [address], [place] tel:[phone] [facility] HLP (chief complaint) thyroid1 (chief complaint) pain (chief complaint) Chronic pain syndromeHyperlipide miaHypothyroidismEn counter for oth screening for malignant neoplasm of breast 1 Denis Oliver [address], [address], [place], [place], [address] , [place]. tel:[phone] OFFICE/OUTPA TIENT VISIT, [facility], [address] [place], [place], [address], [place] tel:[phone] [facility] pain (chief complaint) HLP (chief complaint) thyroid1 (chief complaint) HypothyroidismHyper lipidemiaChronic pain syndromeEncounter for oth screening for malignant neoplasm of breast 1 Denis Oliver [address] [address], [place], [place], [address] , [place]. tel:[phone] OFFICE/OUTPA TIENT VISIT, [facility], [address] [place], [place], [address], [place] tel:[phone] [facility] GERD1 (chief complaint) hypothyroi dism1 (chief complaint) GERD without esophagitisHypothyr oidism 1 Denis Oliver [address], [address], [place], [place], [address] , [place]. [phone] OFFICE/OUTPA TIENT VISIT, [facility], [address] [place], [place], [address], [place] tel:[phone] [facility] thyroid1 (chief complaint) HLP (chief complaint) pain (chief complaint) weight loss1 (chief complaint) HypothyroidismHyper lipidemiaChronic pain syndromeAbnormal weight loss 1 Denis Oliver [address] [address], [place], [place], [address] , [place]. [phone] OFFICE/OUTPA TIENT VISIT, [facility], [address] [place], [address], [place] tel:[phone] [facility] pain (chief complaint) thyroid (chief complaint) HLP (chief complaint) Chronic pain syndromeHyperlipide miaHypothyroidism 1 Denis Oliver [address], [address], [place], [place], [address] , [place]. tel: [phone] OFFICE/OUTPA TIENT VISIT, [facility], [address] [place], [address], [place] tel:[phone] [facility] pain (chief complaint) thyroid1 (chief complaint) HLP (chief complaint) osteopenia 1 (chief complaint) Oth disrd of bone density and structure, multiple sitesHyperlipidemia HypothyroidismChron ic pain syndrome 1 Denis Oliver [address], [place], [place], [address] , [place]. tel: [phone] OFFICE/OUTPA TIENT VISIT, [facility], [address] [place], [address], [place] tel:[phone] [facility] pain (chief complaint) COPD1 (chief complaint) osteopenia 1 (chief complaint) mammo (chief complaint) Chronic pain syndromeEmphysemaOt h disrd of bone density and structure, multiple sitesEncounter for oth screening for malignant neoplasm of breast 1 Denis Oliver [address], [address], [place], [place], [address] , [place]. tel: [phone] OFFICE/OUTPA TIENT VISIT, [facility], [address] [place], [address], [place] tel:[phone] [facility] pain (chief complaint) Chronic pain syndrome 1 Denis Oliver [address], [address], [place], [place], [address] , [place]. tel: [phone] OFFICE/OUTPA TIENT VISIT, [facility], [address], [place], [place], [address], [place] tel:[phone] [facility] pain (chief complaint) thryoid1 (chief complaint) GERD1 (chief complaint) HLP (chief complaint) HypothyroidismHyper lipidemiaGERD without esophagitisChronic pain syndrome 0 Denis Acosta. [address], [address], [place], [place], [address] , [place]. tel:[phone] OFFICE/OUTPA TIENT VISIT, [facility], [address], [place], [place], [address], [place] tel:[phone] [facility] pain (chief complaint) Chronic pain syndrome 0 Denis Acosta. [address], [address], [place], [place], [address] , [place]. tel:[phone] OFFICE/OUTPA TIENT VISIT, [facility], [address], [place], [place], [address], [place] tel:[phone] [facility] pain (chief complaint) osteopenia 1 (chief complaint) Chronic pain syndromeOth disrd of bone density and structure, multiple sites 0 Denis Acosta. [address], [address], [place], [place], [address] , [place]. tel:[phone] OFFICE/OUTPA TIENT VISIT, [facility], [address], [place], [place], [address], [place] tel:[phone] [facility] pain (chief complaint) Chronic pain syndromeTobacco use 0 Denis Acosta. [address], [address], [place], [place], [address] , [place]. tel:[phone] OFFICE/OUTPA TIENT VISIT, [facility], [address], [place], [place], [address], [place] tel:[phone] [facility] COPD1 (chief complaint) pain1 (chief complaint) EmphysemaChronic pain syndrome 0 Denis Acosta. [address], [address], [place], [place], [address] , [place]. tel:[phone] OFFICE/OUTPA TIENT VISIT, [facility], [address], [place], [place], [address], [place] tel:[phone] [facility] pain (chief complaint) renal1 (chief complaint) Chronic pain syndromeTobacco useRenal disease 0 Denis Oliver [address], [address], [place], [place], [address] , [place]. tel:[phone] OFFICE/OUTPA TIENT VISIT, [facility], [address], [place], [place], [address], [place] tel:[phone] [facility] pain (chief complaint) sleep apnea1 (chief complaint) Chronic pain syndromeSleep apneaTobacco use 0 Denis Oliver [address], [address], [place], [place], [address] , [place]. tel:[phone] Referring Provider: Sonny Reg[address], [place], [place], [address]. tel:[phone] OFFICE/OUTPA TIENT VISIT, [facility], [address], [place], [place], [address], [place] tel:[phone] [facility] pain (chief complaint) sleep apnea1 (chief complaint) GERD1 (chief complaint) osteopenia 1 (chief complaint) GERD without esophagitisChronic pain syndromeOth disrd of bone density and structure, multiple sitesSleep apnea 0 Denis Oliver [address], [address], [place], [place], [address] , [place]. tel:[phone] Referring Provider: Sonny Regalado [address], [place], [place], [address]. tel:[phone] OFFICE/OUTPA TIENT VISIT, [facility], [address], [place], [place], [address], [place] tel:[phone] [facility] pain (chief complaint) GERD1 (chief complaint) LDCT (chief complaint) Chronic pain syndromeTobacco useGERD w/o esophagitis 0 Barrios Dave. [address], [address], [place], [place], [address] , [place]. tel:[phone] Referring Provider: Sonny Regalado [address], [place], [place], [address]. tel:[phone] OFFICE/OUTPA TIENT VISIT, [facility], [address], [place], [place], [address], [place] tel:[phone] [facility] physical (chief complaint) Encounter for general adult medical exam w abnormal findingsEmphysemaOt h disrd of bone density and structure, multiple sitesHypothyroidism Hyperlipidemia 0 Denis Acosta. [address], [address], [place], [place], [address] , [place]. [phone] Referring Provider: Sonny Regalado [address], [place], [place], [address]. tel:[phone] OFFICE/OUTPA TIENT VISIT, [facility], [address], [place], [place], [address], [place] tel:[phone] [facility] osteopenia 1 (chief complaint) pain (chief complaint) lung (chief complaint) Chronic pain syndromeOth disrd of bone density and structure, multiple sitesTobacco use 0 Denis Acosta. [address], [address], [place], [place], [address] , [place]. tel:[phone] Referring Provider: Sonny Regalado [address], [place], [place], [address]. tel:[phone] PREV VISIT, EST, AGE 40-64 [facility], [address], [place], [place], [address], [place] tel:[phone] [facility] Physical (chief complaint) Encntr for general adult medical exam w/o abnormal findings 0 Denis Acosta. [address], [address], [place], [place], [address] , [place]. [phone] Referring Provider: Sonny Regalado [address], [place], [place], [address]. tel:[phone] OFFICE/OUTPA TIENT VISIT, [facility], [address], [place], [place], [address], [place] tel:[phone] [facility] pain (chief complaint) thyroid1 (chief complaint) Chronic pain syndromeHypothyroid ism 9 Denis Acosta. [address], [address], [place], [place], [address] , [place]. tel:[phone] Referring Provider: Dave Barrios, [address], [place], [place], [address]. tel:[phone] OFFICE/OUTPA TIENT VISIT, [facility], [address], [place], [place], [address], [place] tel:[phone] [facility] chronic pain1 (chief complaint) mammo (chief complaint) Chronic pain syndromeEmphysema 9 Denis Acosta. [address], [address], [place], [address] , [place]. tel:[phone] Referring Provider: Sonny Reg[address], [place], [place], [address]. tel:[phone] OFFICE/OUTPA TIENT VISIT, [facility], [address], [place], [place], [address], [place] tel:[phone] [facility] pain1 (chief complaint) mammo (chief complaint) Chronic pain syndromeEncounter for ot screening for malignant neoplasm of breast 9 Denis Acosta. [address], [address], [place], [place], [address] , [place]. tel:[phone] OFFICE/OUTPA TIENT VISIT, [facility], [address], [place], [place], [address], [place] tel:[phone] [facility] chronic pain1 (chief complaint) osteopenia 1 (chief complaint) Chronic pain syndromeOth disrd of bone density and structure, multiple sites 9 Denis Acosta. [address], [address], [place], [place], [address] , [place]. tel:[phone] Referring Provider: Sonny Regalado [address], [place], [place], [address]. tel:[phone] OFFICE/OUTPA TIENT VISIT, [facility], [address], [place], [place], [address], [place] tel:[phone] [facility] pain1 (chief complaint) Chronic pain syndrome 9 Denis Acosta. [address], [address], [place], [place], [address] , [place]. tel:[phone] Referring Provider: Sonny Regalado [address], [place], [place], [address]. tel:[phone] OFFICE/OUTPA TIENT VISIT, [facility], [address], [place], [place], [address], [place] tel:[phone] [facility] chronic pain1 (chief complaint) COPD1 (chief complaint) EmphysemaChronic pain syndromeLymphadenop athy 9 Denis Acosta. [address], [address], [place], [address] , [place]. tel:[phone] Referring Provider: Sonny Regalado [address], [place], [place], [address]. tel:[phone] OFFICE/OUTPA TIENT VISIT, [facility], [address], [place], [place], [address], [place] tel:[phone] [facility] emphysema1 (chief complaint) pain1 (chief complaint) lymph1 (chief complaint) LymphadenopathyChro lizabeth pain syndromeEmphysema 9 Denis Acosta. [address], [address], [place], [place], [address] , [place]. tel:[phone] Referring Provider: Sonny Regalado [address], [place], [place], [address]. tel:[phone] OFFICE/OUTPA TIENT VISIT, [facility], [address], [place], [place], [address], [place] tel:[phone] [facility] chronic pain (chief complaint) lymph (chief complaint) thyroid (chief complaint) osteopenia 1 (chief complaint) Chronic pain syndromeHypothyroid ismOth disrd of bone density and structure, multiple sitesLymphadenopath y 9 Denis Acosta. [address], [address], [place], [place], [address] , [place]. tel:[phone] Referring Provider: Sonny Reg[address], [place], [place], [address]. tel:[phone] OFFICE/OUTPA TIENT VISIT, [facility], [address], [place], [place], [address], [place] tel:[phone] [facility] weight loss1 (chief complaint) chronic pain (chief complaint) thyroid1 (chief complaint) Chronic pain syndromeHypothyroid ismAbnormal weight lossLymphadenopathy 9 Denis Acosta. [address], [address], [place], [place], [address] , [place]. tel:[phone] Referring Provider: Sonny [address], [place], [place], [address]. tel:[phone] OFFICE/OUTPA TIENT VISIT, [facility], [address], [place], [place], [address], [place] tel:[phone] [facility] chronic pain (chief complaint) osteopenia 1 (chief complaint) GERD1 (chief complaint) COPD1 (chief complaint) Body mass index (BMI) 29.0-29.9, adultChronic pain syndromeEmphysemaOt h disrd of bone density and structure, multiple sitesGERD without esophagitisFolate deficiency 9 Denis Acosta. [address], [address], [place], [place], [address] , [place]. tel:[phone] OFFICE/OUTPA TIENT VISIT, [facility], [address], [place], [place], [address], [place] tel:[phone] [facility] chronic pain (chief complaint) thyroid (chief complaint) weight loss1 (chief complaint) sick (chief complaint) Abnormal weight lossViral infectionHypothyroi dismChronic pain syndrome Fe 9 Denis Oliver [address], [address], [place], [place], [address] , [place]. tel:[phone] OFFICE/OUTPA TIENT VISIT, EST [facility], [address], [place], [place], [address], [place] tel:[phone] [facility] COPD1 (chief complaint) fatty liver1 (chief complaint) pulmonary HTN (chief complaint) renal1 (chief complaint) pain1 (chief complaint) EmphysemaFatty liverRenal diseaseHypothyroidi smHyperglycemiaHype rlipidemiaPulmonary hypertension 9 Denis [address], [place], [place], [address] , [place]. tel:[phone] OFFICE/OUTPA TIENT VISIT, EST [facility], [address], [place], [address], [place] tel:[phone] [facility] chronic pain (chief complaint) tobacco1 (chief complaint) HLP (chief complaint) COPD1 (chief complaint) sleep apnea1 (chief complaint) EmphysemaSleep apneaChronic pain syndromeHyperlipide miaScreening for pulmonary ca 8 Denis Oliver [address], [place], [place], [address] , [place]. tel:[phone] Referring Provider: Sonny [address], [place], [place], [address]. tel:[phone] PREV VISIT, EST, AGE 40-64 [facility], [address], [place], [place], [address], [place] tel:[phone] [facility] PHysical (chief complaint) Encntr for general adult medical exam w/o abnormal findings 8 Denis Oliver [address], [place], [place], [address] , . tel:[phone] Referring Provider: Sonny [address], [place], [place], [address]. tel:[phone] OFFICE/OUTPA TIENT VISIT, [facility], [address], [place], [place], [address], [place] tel:[phone] [facility] pain (chief complaint) sleep apnea1 (chief complaint) lung CA screening1 (chief complaint) emphysema1 (chief complaint) Chronic pain syndromeSleep apneaScreening for pulmonary caEmphysema 8 Denis Acosta. [address], [address], [place], [place], [address] , [place]. tel:[phone] Referring Provider: Sonny [address], [place], [place], [address]. tel:[phone] OFFICE/OUTPA TIENT VISIT, [facility], [address], [place], [place], [address], [place] tel:[phone] [facility] sleep apnea1 (chief complaint) chronic pain (chief complaint) GERD1 (chief complaint) hip pain1 (chief complaint) Folate deficiencySleep apneaGERD without esophagitisChronic pain syndromeEncounter for oth screening for malignant neoplasm of breast 8 Denis Oliver [address], [address], [place], [place], [address] , [place]. tel:[phone] Referring Provider: Sonny Regalado [address], [place], [place], [address]. tel:[phone] OFFICE/OUTPA TIENT VISIT, [facility], [address], [place], [place], [address], [place] tel:[phone] [facility] chronic pain (chief complaint) hip pain1 (chief complaint) sleep apnea1 (chief complaint) folate1 (chief complaint) Chronic pain syndromePain in right hipSleep apneaFolate deficiency 8 Denis Oliver [address], [address], [place], [place], [address] , [place]. tel:[phone] Referring Provider: Sonny Regalado [address], [place], [place], [address]. tel:[phone] OFFICE/OUTPA TIENT VISIT, [facility], [address], [place], [place], [address], [place] tel:[phone] [facility] chronic pain (chief complaint) sleep apnea1 (chief complaint) GERD1 (chief complaint) osteopenia 1 (chief complaint) GERD without esophagitisChronic pain syndromeOth disrd of bone density and structure, multiple sitesSleep apnea 8 Denis Oliver [address], [address], [place], [place], [address] , [place]. tel:[phone] OFFICE/OUTPA TIENT VISIT, [facility], [address], [place], [place], [address], [place] tel:[phone] [facility] chronic pain1 (chief complaint) renal (chief complaint) snoring (chief complaint) GERD1 (chief complaint) GERD without esophagitisChronic pain syndromeRenal diseaseSleep apnea 8 Denis Acosta. [address], [address], [place], [place], [address] , [place]. tel:[phone] Referring Provider: Sonny [address], [place], [place], [address]. tel:[phone] OFFICE/OUTPA TIENT VISIT, [facility], [address], [place], [place], [address], [place] tel:[phone] [facility] GERD1 (chief complaint) pain (chief complaint) abd pain1 (chief complaint) Other cholelithiasis without obstructionChronic pain syndromeGERD w/o esophagitisBody mass index (BMI) 31.0-31.9, adult 0-201 8 Denis Oliver [address], [address], [place], [place], [address] , [place]. tel:[phone] Referring Provider: Sonny Regalado [address], [place], [place], [address]. tel:[phone] OFFICE/OUTPA TIENT VISIT, [facility], [address], [place], [address], [place] tel:[phone] [facility] chrnoic pain (chief complaint) GERD1 (chief complaint) chest congestion 1 (chief complaint) Body mass index (BMI) 30.0-30.9, adultGERD without esophagitisEmphysem aAcute bronchitisOther cholelithiasis without obstruction May-0 2-201 8 Denis Acosta. [address], [address], [place], [place], [address] , [place]. [phone] Referring Provider: Sonny Regalado [address], [place], [place], [address]. tel:[phone] OFFICE/OUTPA TIENT VISIT, [facility], [address], [place], [place], [address], [place] tel:[phone] [facility] thyroid1 (chief complaint) chronic pain (chief complaint) abd pain1 (chief complaint) Body mass index (BMI) 31.0-31.9, adultHypothyroidism Other cholelithiasis without obstructionChronic pain syndrome Apr-0 8 Denis Acosta. [address], [address], [place], [place], [address] , [place]. [phone] Referring Provider: Sonny Regalado [address], [place], [place], [address]. tel:[phone] OFFICE/OUTPA TIENT VISIT, [facility], [address], [place], [place], [address], [place] tel:[phone] [facility] chronic pain1 (chief complaint) abd pain1 (chief complaint) GERD without esophagitisChronic pain syndrome Mar-0 5 8 Denis Acosta. [address], [address], [place], [place], [address] , [place]. [phone] Referring Provider: Sonny Regalado [address], [place], [address]. tel:[phone] OFFICE/OUTPA TIENT VISIT, EST [facility], [address], [place], [address], [place] tel:[phone] [facility] chronic pain1 (chief complaint) abd pain1 (chief complaint) COPD1 (chief complaint) EmphysemaChronic pain syndromeGERD without esophagitis Fe0 8 Denis Acosta. [address], [address], [place], [place], [address] , [place]. tel:[phone] Referring Provider: Dave Barrios, [address], [place], [place], [address]. tel:[phone] OFFICE/OUTPA TIENT VISIT, [facility], [address], [place], [place], [address], [place] tel:[phone] [facility] low folate1 (chief complaint) chronic pain (chief complaint) renal1 (chief complaint) hypothyroi dism1 (chief complaint) HLp (chief complaint) HypothyroidismHyper lipidemiaEmphysemaO th disrd of bone density and structure, multiple sites 8 Denis Acosta. [address], [address], [place], [place], [address] , [place]. [phone] Referring Provider: Dave Barrios [address], [place], [place], [address]. tel:[phone] OFFICE/OUTPA TIENT VISIT, EST [facility], [address], [place], [address], [place] tel:[phone] [facility] chronic pain (chief complaint) HLP (chief complaint) hypothyroi dism (chief complaint) GERD1 (chief complaint) HyperlipidemiaHypot hyroidismGastritis, unspecified, without bleedingChronic pain syndrome 7 Denis Acosta. [address], [address], [place], [place], [address] , [place]. tel:[phone] PREV VISIT, EST, AGE 40-64 [facility], [address], [place], [place], [address], [place] tel:[phone] [facility] Physical (chief complaint) Encntr for general adult medical exam w/o abnormal findings 7 Denis Acosta. [address], [address], [place], [place], [address] , [place]. [phone] Referring Provider: Sonny Regalado [address], [place], [address]. tel:[phone] OFFICE/OUTPA TIENT VISIT, [facility], [address], [place], [place], [address], [place] [phone] [facility] chronic pain1 (chief complaint) COpD1 (chief complaint) HLP (chief complaint) EmphysemaChronic pain syndromeHyperlipide miaEncounter for screening for malignant neoplasm of colon 7 Denis Oliver [address], [address], [place], [place], [address] , [place]. [phone] Referring Provider: Sonny Regalado [address], [place], [place], [address]. tel:[phone] OFFICE/OUTPA TIENT VISIT, [facility], [address], [place], [place], [address], [place] tel:[phone] [facility] COPD1 (chief complaint) chronic pain (chief complaint) tobacco1 (chief complaint) EmphysemaChronic pain syndromeTobacco use 7 Denis Acosta. [address], [address], [place], [place], [address] , [place]. [phone] Referring Provider: Sonny Regalado [address], [place], [place], [address]. tel:[phone] OFFICE/OUTPA TIENT VISIT, [facility], [address], [place], [place], [address], [place] tel:[phone] [facility] chronic pain (chief complaint) asthma1 (chief complaint) hypothyroi dism1 (chief complaint) HLP (chief complaint) Chronic pain syndromeAsthmaHypot hyroidismHyperlipid emia 7 Denis Acosta. [address], [address], [place], [place], [address] , [place]. [phone] Referring Provider: Sonny Regal[address], [place], [place], [address]. tel:[phone] OFFICE/OUTPA TIENT VISIT, [facility], [address], [place], [place], [address], [place] tel:[phone] [facility] chronic pain (chief complaint) gastritis1 (chief complaint) asthma1 (chief complaint) colonoscop y1 (chief complaint) Encounter for screening for malignant neoplasm of colonAsthmaChronic pain syndromeGERD without esophagitis Denis Oliver [address], [address], [place], [place], [address] , [place]. [phone] Referring Provider: Sonny Regalado [address], [place], [place], [address]. tel:[phone] OFFICE/OUTPA TIENT VISIT, [facility], [address], [place], [place], [address], [place] tel:[phone] [facility] SOb1 (chief complaint) chronic pain1 (chief complaint) GERD1 (chief complaint) anxiety1 (chief complaint) GERD without esophagitisChronic pain syndromeAsthmaGener alized Anxiety Disorder Denis Oliver [address], [address], [place], [place], [address] , [place]. tel:[phone] Referring Provider: Sonny Regalado [address], [place], [place], [address]. tel:[phone] OFFICE/OUTPA TIENT VISIT, [facility], [address], [place], [place], [address], [place] tel:[phone] [facility] chronic pain1 (chief complaint) asthma1 (chief complaint) GERD1 (chief complaint) Chronic pain syndromeAsthmaOther gastritis without bleeding 7 Denis Acosta. [address], [address], [place], [place], [address] , . tel:[phone] Referring Provider: Sonny Regalado [address], [place], [place], [address]. tel:[phone] OFFICE/OUTPA TIENT VISIT, [facility], [address], [place], [place], [address], [place] tel:[phone] [facility] chronic pain1 (chief complaint) asthma1 (chief complaint) insomania1 (chief complaint) anxiety1 (chief complaint) AsthmaChronic pain syndromeSleep disorderBody mass index (BMI) 33.0-33.9, adult 7 Denis Oliver [address], [address], [place], [place], [address] , [place]. tel:[phone] Ref[facility]: [facility] [place], [address]. tel:[phone] OFFICE/OUTPA TIENT VISIT, [facility], [address], [place], [place], [address], [place] tel:[phone] [facility] asthma1 (chief complaint) HLP (chief complaint) hypothyroi dism1 (chief complaint) chronic pain (chief complaint) GERD1 (chief complaint) HypothyroidismHyper lipidemiaAsthmaEnco unter for screening for other viral diseases 7 Denis Oliver [address], [address], [place], [place], [address] , [place]. tel:[phone] Referring Provider: Sonny Regalado [address], [place], [place], [address]. tel:[phone] OFFICE/OUTPA TIENT VISIT, [facility], [address], [place], [address], [place] tel:[phone] [facility] chronic pain (chief complaint) Asthma1 (chief complaint) GERD1 (chief complaint) AsthmaChronic pain syndromeGERD without esophagitisColitis 7 Denis Oliver [address], [address], [place], [place], [address] , [place]. tel:[phone] Referring Provider: Sonny Regalado [address], [place], [place], [address]. tel:[phone] OFFICE/OUTPA TIENT VISIT, [facility], [address], [place], [place], [address], [place] tel:[phone] [facility] thyroid (chief complaint) GERD1 (chief complaint) asthma1 (chief complaint) chronic pain (chief complaint) HLP (chief complaint) HypothyroidismAsthm aGERD without esophagitisChronic pain syndrome 7 Denis Acosta. [address], [address], [place], [place], [address] , [place]. tel:[phone] Referring Provider: Sonny Regalado [address], [place], [place], [address]. tel:[phone] OFFICE/OUTPA TIENT VISIT, [facility], [address], [place], [address], [place] tel:[phone] [facility] chronic pain (chief complaint) asthma1 (chief complaint) HLP (chief complaint) hypothyroi diwsm1 (chief complaint) AsthmaHypothyroidis mChronic pain syndromeHyperlipide jacob 6 Denis Acosta. [address], [address], [place], [place], [address] , [place]. tel:[phone] Referring Provider: Sonny Regalado [address], [place], [place], [address]. tel:[phone] OFFICE/OUTPA TIENT VISIT, [facility], [address], [place], [place], [address], [place] tel:[phone] [facility] chronic pain1 (chief complaint) hypothyroi dism (chief complaint) renal disease1 (chief complaint) SOB (chief complaint) HypothyroidismRenal diseaseChronic pain syndromeAsthma 6 Denis Acosta. [address], [place], [place], [address] , [place]. [phone] Referring Provider: Sonny Regalado [address], [place], [place], [address]. tel:[phone] PREV VISIT, EST, AGE 40-64 [facility], [address], [place], [place], [address], [place] tel:[phone] [facility] Physical (chief complaint) Encntr for general adult medical exam w/o abnormal findings 6 Denis Acosta. [address], [address], [place], [place], [address] , [place]. [phone] Referring Provider: Sonny Regalado [address], [place], [place], [address]. tel:[phone] OFFICE/OUTPA TIENT VISIT, [facility], [address], [place], [place], [address], [place] tel:[phone] [facility] thyroid (chief complaint) HLP (chief complaint) fatigue1 (chief complaint) knee pian (chief complaint) FatigueChronic pain syndromeHyperlipide miaHypothyroidism 6 Denis Acosta. [address], [address], [place], [place], [address] , [place]. [phone] Referring Provider: Sonny Regalado [address], [place], [place], [address]. tel:[phone] OFFICE/OUTPA TIENT VISIT, [facility], [address], [place], [place], [address], [place] tel:[phone] [facility] knee pain1 (chief complaint) sleep apnea (chief complaint) Chronic pain syndromeFatigue 6 Denis Acosta. [address], [place], [place], [address] , [place]. [phone] Referring Provider: Sonny Regal[address], [place], [place], [address]. tel:[phone] OFFICE/OUTPA TIENT VISIT, [facility], [address], [place], [address], [place] tel:[phone] [facility] HLP (chief complaint) sleep apnea1 (chief complaint) renal disease (chief complaint) knee pain (chief complaint) Chronic pain syndromeHyperlipide miaFatigueRenal disease 6 Denis Acosta. [address], [place], [place], [address] , [place]. tel:[phone] Referring Provider: Sonny Regalado [address], [place], [place], [address]. tel:[phone] OFFICE/OUTPA TIENT VISIT, [facility], [address], [place], [place], [address], [place] tel:[phone] [facility] hypothyroi dism1 (chief complaint) chornic pain1 (chief complaint) HLP (chief complaint) mammo (chief complaint) Chronic pain syndromeHypothyroid ism, unspecifiedEncounte r for oth screening for malignant neoplasm of breastHyperlipidemi a 6 Denis Acosta. [address], [place], [place], [address] , [place]. [phone] Referring Provider: Sonny Regalado [address], [place], [place], [address]. tel:[phone] OFFICE/OUTPA TIENT VISIT, [facility], [address], [place], [address], [place] tel:[phone] [facility] chornic pain1 (chief complaint) GERD1 (chief complaint) fatigue1 (chief complaint) Chronic pain syndromeFatigueGERD w/o esophagitis 6 Denis Acosta. [address], [place], [place], [address] , [place]. tel:[phone] Referring Provider: Sonny Regalado [address], [place], [place], [address]. tel:[phone] OFFICE/OUTPA TIENT VISIT, [facility], [address], [place], [place], [address], [place] tel:[phone] [facility] chronic pain (chief complaint) hypothyroi dism (chief complaint) HLP (chief complaint) GERD1 (chief complaint) Renal diseaseLiver diseaseMixed hyperlipidemiaChron ic pain syndrome 6 Denis Acosta. [address], [place], [place], [address] , [place]. [phone] Referring Provider: Dave Barrios [address], [place], [place], [address]. tel:[phone] OFFICE/OUTPA TIENT VISIT, [facility], [address], [place], [place], [address], [place] [phone] [facility] renal disease1 (chief complaint) GERD1 (chief complaint) hypothyroi dism1 (chief complaint) LFT (chief complaint) Renal diseaseHypothyroidi sm, unspecifiedLiver diseaseGERD w/o esophagitis 6 Denis Acosta. [address], [place], [place], [address] , [place]. [phone] Referring Provider: Sonny Regal[address], [place], [place], [address]. tel:[phone] OFFICE/OUTPA TIENT VISIT, [facility], [address], [place], [place], [address], [place] [phone] [facility] HLP (chief complaint) hypothyroi dism (chief complaint) renal (chief complaint) chronic pain (chief complaint) Mixed hyperlipidemiaHypot hyroidism, unspecifiedRenal diseaseAbnormality of globulin 6 Denis Acosta. [address], [place], [place], [address] , [place]. [phone] Referring Provider: Sonny Regalado [address], [place], [place], [address]. tel:[phone] OFFICE/OUTPA TIENT VISIT, [facility], [address], [place], [address], [place] [phone] [facility] HLP1 (chief complaint) hypothyroi dism (chief complaint) low renal (chief complaint) GERD1 (chief complaint) Mixed hyperlipidemiaHypot hyroidismChronic pain syndrome 6 Denis Acosta. [address], [place], [place], [address] , [place]. [phone] Referring Provider: Sonny Regalado [address], [place], [place], [address]. tel:[phone] OFFICE/OUTPA TIENT VISIT, [facility], [address], [place], [place], [address], [place] [phone] [facility] back pain1 (chief complaint) hypothyroi dism1 (chief complaint) GERD1 (chief complaint) Chronic pain syndromeHypothyroid ism, unspecifiedAbnormal weight gainGERD without esophagitis 6 Denis Oliver [address], [address], [place], [place], [address] , [place]. [phone] Referring Provider: Sonny Regalado [address], [place], [address]. tel:[phone] OFFICE/OUTPA TIENT VISIT, [facility], [address], [place], [place], [address], [place] tel:[phone] [facility] back pain1 (chief complaint) anemia1 (chief complaint) renal disease (chief complaint) hypothyroi dism (chief complaint) AnemiaChronic pain syndromeChronic renal diseaseHypothyroidi sm 5 Denis Oliver [address], [place], [place], [address] , [place]. [phone] Referring Provider: Sonny Regal[address], [place], [place], [address]. tel:[phone] OFFICE/OUTPA TIENT VISIT, [facility], [address], [place], [place], [address], [place] tel:[phone] [facility] back pain1 (chief complaint) padget disease (chief complaint) HCTZ1 (chief complaint) Essential (primary) hypertensionOther spondylosis, lumbar regionOsteitis deformans of other bonesHypothyroidism 5 Denis Acosta. [address], [facility], [place], [place], [address] , . tel:[phone] Referring Provider: Sonny Regalado [place], [address]. tel:[phone] OFFICE/OUTPA TIENT VISIT, [facility], [address] [place], [address], [place] tel:[phone] [facility] anxiety1 (chief complaint) insomnia1 (chief complaint) hypothyroi dism1 (chief complaint) HCTZ (chief complaint) lumbago1 (chief complaint) Dietary surveillance and counselingEssential (primary) hypertensionHypothy roidism, unspecifiedLumbago with sciatica, left side 5 Denis Acosta. [address], [facility] [address], [place], [place], [address] , [place]. tel:[phone] Referring Provider: Dave Barrios [address] [place] [address], [address]. tel:[phone] Family History Family Member Type Diagnosis Age At Onset Father Problem (finding) Unknown Mother Problem (finding) Diabetes mellitus type 2 Sister Problem (finding) Diabetes mellitus type 2 Payers Payer name Insurance type Covered alliance party ID Authoriza tijono(s) [facility] CI [id number] Social History Type Description Quantity Date Captured Comments Alcohol Use Details No Caffeine Use Details Unknown Tobacco Use Status Ex-cigarette smoker 025 Smoking Status Former smoker Sex Female Vital Signs Date / Time: Height Weight BMI Pulse Rate Blood Pressure Temperature Respiratory Rate Body Surface Area Head Circumference BMI percentile Pulse Ox Inhaled Ox 10:34 AM 62.50 in 157.80 lbs 28.4 0 kg/m eter (2) 76 /min 110/70 mm[Hg] 98.0 F 16 /min Chief Complaint And Reason For Visit From encounter dated '06/18/2025 10:34'. anxiety1 (chief complaint). Description: Pt has chronic anxiety and depression Pt takes zoloft and buspar and she is doing much better Pt denies any suicidal or homicidal thought Pt denies any cryingspells pain (chief complaint). Description: Pt has chronic [...] lyrica is helping her pain as well. COPD1 (chief complaint). Description: Pt has COPD Pt no longer smokes Pt is on incruse but still feels sob frequently Pt c/o acute productive cough, chest congestion and feeling sob for 2 weeks. Pt notices some wheezing as well. Pt denies any fever varicose1 (chief complaint). Description: Pt has painful varicose veins both leg with occasional edema Pt has george with vascular surgeon soon Plan Of Treatment Date Type Action Status [...] Goal Special diet education compl eted Referral Referred To: Brock Nagel [address] [place], [phone] Ordered: Referrals: Brock Nagel. Evaluate and treat ordered Referral Ordered: COLONOSCOPY AND BIOPSY ordered Referral Ordered: GEOFFREY ABREU -Allopathic & Osteopathic Physicians : Orthopaedic Surgery (related to Chronic pain syndrome) ordered Referral Referred To: GEOFFREY ABREU [address], [place], [phone] Ordered: Referrals: Allopathic & Osteopathic Physicians : [...] Brian [address] [place], [phone] Ordered: Referrals: Allopathic & Osteopathic Physicians : Surgery : Vascular Surgery. Paul Brian. Evaluate and treat ordered Referral Ordered: US EXAM, ABDOM, COMPLETE ordered Referral Ordered: NUC MED HIDA (HEPATOBILIARY) SCAN ordered Referral Ordered: DXA BONE DENSITY, AXIAL ordered Referral Ordered: CT THORAX W/O DYE ordered Referral Ordered: LEILA CORONA (related to Sleep disorder) ordered Referral Referred To: LEILA CORONA [id number] [facility] [address] [place], [place], [phone] Ordered: Referrals: LEILA CORONA. Evaluate and treat ordered Referral Ordered: CHEST X-RAY PA/LAT TWO-VIEWS ordered Referral Ordered: Alisha Gilman (related to Encounter for oth screening for malignant neoplasm of breast) ordered Referral Referred To: Alisha Gilman [address] [facility] [place], [place], [phone] Ordered: Referrals: Alisha Gilman. Evaluate and treat ordered Referral Ordered: MAMMOGRAM, SCREENING ordered Referral Ordered: Pulmonology (related to Fatigue) ordered Referral Ordered: Referrals: Pulmonology. Evaluate and treat ordered Referral Ordered: Thien Yang (related to Renal disease) ordered Referral Referred To: Thien Yang [address] [facility] [address], [phone] Ordered: Referrals: Thien Yang. Evaluate and treat ordered Referral Ordered: Physical Therapy (related to Other spondylosis, lumbar region) ordered Referral Ordered: Paul Rodriguez (related to Osteitis deformans of other bones) ordered Referral Ordered: US THYROID ordered Referral Referred To: Paul Rodriguez [address] [place], [phone] Ordered: Referrals: Paul Rodriguez. Evaluate and treat ordered Referral Referred To: Physical Therapy Ordered: Referrals: Physical Therapy. Evaluate and treat ordered Referral Ordered: LUMBAR XRAY AP AND LAT ONLY ordered Appointment Sara Paulson BOOKED History Of Present Illness Encounter Date Complaint History Of Prese nt Illness pain Pt has chronic k nee and [...] lyrica is helping her pain as well. anxiety1 Pt has chronic a nxiety and depression Pt takes zoloft and buspar and she is doing much better Pt denies any suicidal or homicidal thought Pt denies any crying spells COPD1 Pt has COPD Pt n o longer smokes Pt is on incruse but still feels sob frequently Pt c/o acute productive cough, chest congestion and feeling sob for 2 weeks. Pt notices some wheezing as well. Pt denies any fever varicose1 Pt has painful v aricose veins both leg with occasional edema Pt has george with vascular surgeon soon pain Pt has chronic k nee and [...] lyrica is helping her pain as well. anxiety1 Pt has chronic a nxiety Pt denies any suicidal or homicidal thought ,Pt denies any crying spells. Pt states that hydroxyzine did not help and she still has a lot of anxiety. Pt is on buspar and she had to take 3-4 times per day for her anxiety thyroid1 Pt takes 100 mcg and 88 mcg synthroid alternative days Pt denies any dysphagia or neck pain HLP Pt has HLP pt ta kes crestor Pt denies ay myalgia. varicose1 Pt has bilateral varicose veins with pain and some leg swelling chronically anxiety1 Pt has chronic a nxiety Pt denies any suicidal or homicidal thought ,Pt denies any crying spells. Pt has mild depression but she does not want to take any medication for above. Pt states that buspar is helping her anxiety. Pt wants to try some hydroxyzine PRN for anxiety as well pain Pt has chronic k nee and [...] lyrica is helping her pain as well. polyp1 Pt denies any lo wer GI issue Pt had colonoscopy done which showed tubular adenoma and she was told to repeat in 5 years pain Pt has chronic k nee and [...] lyrica is helping her pain as well. anxiety1 Pt has chronic a nxiety Pt denies any suicidal or homicidal thought ,Pt denies any crying spells. Pt has mild depression but she does not want to take any medication for above. Pt states that buspar is helping her anxiety colonguard1 Pt denies any Gi issue. pt [...] alcohol anymore HLP Pt has HLP Pt ta kes crestor and her lipid profile is ok osteopenia1 [...] Pt denies any chest pain or palpitation MCV Pt quit alcohol and her MCV is normal size now anxiety1 Pt has anxiety a nd depression Pt takes cymbalta and abilify and she notices slightly improvement of her mood. Pt denies any suicidal or homicidal thought Pt denies any crying spells. phos1 Pt has mildly hi gh phos. Pt trista any muscle cramp pain1 Pt was involved in [facility] on [...] not drink alcohol Pt denies any headache hashimoto1 Pt has hudson Pt is on [...] feels sob Pt is going to the [employer] tomorrow and she will do a lot [...] knee pain. HLP Pt has HLP Pt ta kelilia Crestor Pt denies any myalgia. 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 LFT1 Pt has borderlin e high LFT .Pt denies any abd pain or jaundice. Pt does not drink alcohol osteopenia1 Pt has osteopeni a Pt doing ok with fosamax and calcium and D pain Pt has chronic b ack and [...] paresthesia HLP Pt has HLP, Pt t akes crestor. pt denies any myalgia hypothyroidism1 Pt has hypothyro idism. Pt takes 75 mcg synthroid and TSH ok. Pt just had lab done again HLP Pt takes crestor Pt denies any myalgia thyroid Pt has hudson thyroid disease Pt [...] bad. Pt denies any saddle area paresthesia pain [...] denies any saddle area paresthesia osteopenia1 Pt had bone dens ity done which showed osteopenia, and it is slightly worse compared to two years ago. Pt takes calcium and D and fosamax 35 mg weekly. 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 Pt is noncompliant and she has not been using cpap. Pt states that insurance does not pay for it. Pt does have pulmonary HTN Pt denies any worsening sob osteopenia1 Pt has osteopeni a. Pt takes fosamax and calcium and D Pt has bone density scheduled in April pain Pt has chronic b ack and [...] hospital COPD1 Pt has COPD Pt t akes incruse and airduo and she rarely needs to use albuterol. [...] crying spells. Pt denies any abd pain weight loss1 Pt has been diet and exercising and losing weight Pt is on keto diet. pt denies any GI issue Pt denies any appetite loss, nausea, vomiting, early satiety. change of bowel, etc. HLP Pt has HLP. Pt t akes crestor. Pt denies any myalgia. her lipid profile is ok pain Pt has chronic b ack and hip and knee pain pt failed NSAID and ultram Pt takes norco PRN for pain and doing ok pt denies any worsening pain pt denies any loss of bladder control. Pt has mild sciatica and leg numbness but not bad. Pt denies any loss of bowel or bladder control tobacco1 Pt denies any he moptysis, worsening sob [...] Pt denies any chest pain or headache tobacco Pt has 39 pack y ear tobacco [...] bladder control HLP Pt has HLP Pt louis higgins. Pt denies any myalgia Her lipid profile is ok now. hypothyroidism Pt has hypothyro idism Pt takes 100 mcg of synthroid and her thyroid is too high Pt denies any dysphagia Pt denies any chest pain, headache or palpitation COPD Pt has COPD. Pt takes airduo, incruse and she rarely uses albuterol. Pt states that he uses albuterol on average about 2-3 per week. Pt denies any hemoptysis. HLP Pt has HLP. Pt t kannan higgins. Pt denies any myalgia. Pt has not [...] neck pain or chest pain or headache GERD Pt has gastritis and mild GERD Pt takes pepcid daily an doing ok Pt denies any abd pain or nausea, vomiting. Pt needs refilled. hypothyroidism Pt takes synthro id 100 mcg daily Pt denies any dysphagia or neck pain Pt has not done lab yet. Pt denies any dysphagia or neck pain thyroid Pt is taking 100 mcg synthroid. pt [...] pain HLP Pt has HLP Pt ta kes feno. TG ok .TC is high. Pt denies any myalgia osteopenia1 Pt has osteopeni a. Pt takes calcium and D and fosamax. Pt denies any jaw or tooth pain Pt needs D refilled. HLP Pt has HLP. Pt t kannan maco Pt denies any myalgia pain Pt has chronic b ack and hip and knee pain pt failed NSAID and ultram Pt takes norco PRN for pain and doing ok pt denies any worsening pain pt denies any loss of bladder control. thyroid1 Pt hester hypothyroi dism. Pt takes synthroid Pt denies any dysphagia or neck pain pain Pt has chronic b ack and hip and knee pain pt failed NSAID and ultram Pt takes norco PRN for pain and doing ok pt denies any worsening pain pt denies any loss of bladder control. COPD1 Pt has COPD Pt n o [...] HLP Pt has HLP .Pt t kannan feno Pt denies any myalgia pain Pt has [...] COPD1 Pt has COPD Pt t kannan incruse and airduo and she rarely uses albuterol. Pt has not needed to use albuterol for several months. Pt denies any hemoptysis pain1 Pt has chronic b ack and hip and knee pain pt failed NSAID and ultram Pt takes norco PRN for pain and doing ok pt denies any worsening pain pt denies any loss of bladder control. renal1 Pt has normal UO . Her [...] ortho and received knee injection last week pain Pt has chronic b ack and hip and knee pain pt failed NSAID and ultram Pt takes norco PRN for pain and doing ok pt denies any worsening pain pt denies any loss of bladder control. 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 Pt uses [...] and doing ok. [facility] osteopenia1 Pt has osteopeni a Pt takes calcium and D and is working on weight bearing exercise Pt denies any fx COPD1 Pt has mild COPD Pt no longer smoking .pt uses incruse and she uses ventolin 1-2 every other week as needed. pt denies any acute sob. Pt denies any hemoptysis, cough or sob GERD1 Pt has gastritis . Pt takes zantac and doing ok pt denies any nausea, vomiting ,abd pain sick Pt c/o mild stom ach upset sinus congestion, dry cough, chills for several days. Pt denies any fever or recent travel. Pt denies any nausea, vomiting, diarrhea . thyroid Pt takes synthro id. her TSH is ok. pt denies any dysphagia or thyroid nodule chronic pain pt has chronic b ack and knee pain. Pt sees ortho. Pt failed NSAID and ultram. Pt denies any worsening pain. Pt has DDD Pt denies any loss of bladder control .Pt has mild occasional sciatica weight loss1 Pt has lost clos e to 20 pounds during last 1.5 years. Pt denies any GI issue. Pt denies any appetite loss. Pt states that she his trying to diet and exercise and weight loss COPD1 Pt has COPD. pt uses incruse and she uses ventolin 2-3 per week Pt denies any acute sob. Pt no longer smoking fatty liver1 Pt has fatty marilee er. Pt is trying to lose weight and is on low fat and low carb diet renal1 Pt has borderlin e renal function and low D and borderline high glucose pt sees nephrology. Pt has normal UO pulmonary HTN pt does have sle ep apnea and she uses cpap nightly. 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 Pt takes norco PRN for pain Pt unable to tolerate NSAID and she failed ultram. Pt denies any loss of bladder or bowel control chronic pain Pt has chronic l ow [...] Pt had EGD 2014 which showed gastritis GERD1 Pt has been taki ng a lot of tums despite taking zantac. Pt has daily GERD Pt also has right upper quadrant abdominal pain. Pt denies any nausea, vomiting Pt denies any diarrhea chrnoic pain Pt has chronic l ow back and knee pain Pt takes norco PRn for pain and doing ok. Pt denies any worsening pain. Pt failed NSAID chest congestion1 Pt c/o product bret coughing with chest congestion. Pt notices green phlegm Pt has been using more ventolin daily in addition to incruse abd pain1 Pt has intermitt ent right upper quadrant pain with food with several months. Pt denies any nausea, vomiting. Pt takes zantac for GERd. Pt denies any abd pain chronic pain Pt has chronic l ow back and hip and knee pain. Pt denies any worsening pain. Pt denies any loss of bladder control. Pt takes norco PRN for pain. Pt failed NSAID. Pt does have padget disease thyroid1 Pt has chronic l ow thyroid. Pt went to marketing systems analyst and she was told that she has thyroid nodule and she was ordered a thyroid ultarasound. Her TSH was ok recently. Pt denies any dysphagia chronic pain1 Pt has chronic l ow [...] it is helping Pt no longer smoking renal1 Pt has low renal . Pt is seeing nephrology. Pt has normal UO hypothyroidism1 Pt takes 88 mcg synthroid. her TSH is normal HLp Pt has hLP. Pt marilyn craft. her lipid profie is ok low folate1 Pt has low folat e and low D. Pt has not done bone density yet chronic pain Pt has chronic l ow back pain and knee pain. Pt is seeing ortho. Pt take norco PRn for pain and doing ok Pt denies any worsening pain chronic pain Pt has chornic l ow back and knee pain. Pt sees ortho. Pt denies any sciatica or any loss of bladder control. Pt failed NSAID. Pt tkae norco PRN for pain and doing ok HLP Pt has HLP. Pt t kannan craft. Pt denies any myalgia. Pt has not [...] Pt denies any suicidal or homicidal thought. asthma1 Pt has asthma/co pd. Pt uses [...] doing ok Pt denies any worsening pain chronic pain1 Pt has chronic l [...] knee pain. Pt is seeing ortho at [facility] and she has chornic knee pain. Pt has cartilage damage per ortho per pt from [facility]. Pt gets injection to her knee. Pt denies any worsening pain. pt takes norco for pain. Pt failed NSAID Asthma1 Pt has asthma an d SOB. 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 [...] poor prep. Pt denies any GI issue GERD1 Pt has gastritis and she takes zantac and she denies any GERd or abd pain asthma1 Pt states that f lovent and she is feeling better. Pt uses ventolin twice per month last month chronic pain Pt has chronic l ow back and knee pain. Pt takes norco PRN for maynor and doing ok. Pt is seeing ortho for knee injections thyroid Pt takes synthro id and her TSH is ok. HLP Pt takes feno an d doing ok. Pt denies any myalgia hypothyroidiwsm1 Pt still has no t done lab yet. Pt is on synthroid chronic pain Pt has chronic l ow back and knee pain. Pt is seeing ortho at [facility]. Pt denies any loss of bowel or bladder control. Pt takes norco PRN and doing ok asthma1 Pt uses venotlin almost 2-3 per day. Pt just had chets xray done last Sunday. pt never picked up qvar Pt denies any acute sob HLP Pt takes feno. P t denies any myalgia. Pt doing ok. Pt is on low fat and low carb diet chronic pain1 Pt has chronic l ow back and knee and hip pain. [facility] the [facility] now. pt [...] takes zantac for GERD and doing ok. knee pian Pt has chornic l eft knee pian. hip and low back pain. Pt c/o right sciatica but no numnbness. Pt denies any worsening pain, Pt has 5/10 pain thyroid Pt takes 100 mcg of synthroid. [...] any trouble with breathing at night knee pain1 Pt has chronic l eft knee pain. Pt is seeing ortho and will do injection soon. Pt takes norco PRN for pain and donig ok. NO swelling or warmth sleep apnea Relevant history : a BMI of 33.30. Additional information: Pt has snoring and fatigue. Pt has appointment with sleep specialist next month. renal disease Pt has low renal function. Pt has appointment renal physician next month ago knee pain Location: knee. Additional information: Pt has chronic left knee pain. Pt takes norco for pain pt recevies injection from ortho. Pt states that left knee pain is getting wrose Pt denies any new injury. No redness or swelling. HLP Pt has HLP Pt ta kes feno. Pt denies any myalgia. Pt needs refill sleep apnea1 Pt has ? sleep a pnea and fatigue. Pt has appointment with sleep physician next month hypothyroidism1 Pt has hypothyro idism and she [...] Pt still hast not made appointment with SYRUP MIXER yet chornic pain1 Pt has chronic l [...] she is adequately supplemented by synthroid now GERD1 Pt doing ok with zantac. Pt denies any abd pain chronic pain Pt has chronic l ow [...] Pt denies any myalgia. Pt doing ok LFT Pt has mildly el evated LFT. Pt denies any abd pain or any jaundice hypothyroidism1 Pt is on 88 mcg of synthroid. He rthyroid is slightly low. Pt probalby has hudson disease GERD1 Pt has mild oh ritis. Pt takes omeprazole daily Pt denies any GERD symptoms renal disease1 Pt has chronic r enal disease. Pt denies any urinary output problem. pt deneis any flank pain hypothyroidism pt is taking 88 mcg of synthroid for the past two weeks. Pt denies any palpitation, chest pain chronic pain Pt has chronic b ack and hip pain. Pt denies any loss of bowel or bladder control. Pt has appointment with ortho at [facility] soon HLP Pt has HLP. Pt s tarted feno and tolerating ok. Pt denies any m yalgia. Pt is on low fat and low carb diet renal Pt has low renal and increase globulin. Pt denies any urinary symptoms. low renal Pt has very mild low renal and mild elevation of globulin. Pt denie any urinary symtpoms. GERD1 Pt notices mild improvement of her GERD with omeprazole. Pt has gastritis on eGD and she has narrowing of colon. Pt will have colonsocopy soon. Pt denies and abd pain HLP1 Pt has HLP. Pt h as elevated TC and TG Pt is not on any diet hypothyroidism Pt is synthroid and is under replaced pt feels tired hypothyroidism1 Pt takes synthro id. Her thyroid ultrasound benign. GERD1 Pt has GERd and gastritis on recent EGD. Pt is very confused about what happened to her EGD and colonsocopy. Pt did not do barium enema. Pt is not on any GERD meds. Pt was told everything fine from GI? 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 Pt takes norco for pain. Pt denies any worsening pain. Pt denies any loss of bowel or bladder control. Pt feels leg numnbess both side renal disease Pt also has ? re nal disease. I also do not know the stage or nature of her renal disease. Pt denies any trouble with urination hypothyroidism Pt has hypothyro idism. Pt needs [...] Pt has 7/10 pain sharp in nature anemia1 Pt has anemia. P t denies any dizziness or any symptoms. Pt denies any active blood loss. Pt does not know too much about her anemia back pain1 Pt has chronic a nd [...] 5/10 pain Instructions Date Instruction Additional Infor flyion Special diet education Related t o Body [...] Weight management Related to Emp hysema Prescribed dietary intake Relate d to Body mass index (BMI) 29.0-29.9, adult Weight management Related to Chr onic pain syndrome Prescribed dietary intake Relate d to Body mass index (BMI) 29.0-29.9, adult Increase physical activity Relat ed to Chronic pain syndrome Weight management Related to Chr onic pain syndrome Weight management Related to Chr onic pain syndrome Special diet education Related t o Body mass index (BMI) 28.0-28.9, adult Increase physical activity Relat ed to Chronic pain syndrome Special diet education Related t [...] Emphysema Weight management Related to Emp hysema Increase physical activity Relat ed to Emphysema [...] management Related to Chr onic pain syndrome Increase physical activity Relat ed [...] o Body mass index (BMI) 31.0-31.9, adult Avoid provocative fo ods: citrus, alcohol, [...] sle ep Related to GERD without esophagitis Prescribed Activity and Exercise Education Related to [...] Increase physical activity Relat ed to Hypothyroidism Weight management Related to Hyp othyroidism Prescribed [...] adult medical exam w/o abnormal findings Prescribed Diet Educ ation/Lifestyle Education Regarding Diet Related to Dietary Surveillance and Counseling Increase physical activity Relat ed to Emphysema Weight management Related to Emp hysema Prescribed Activity and Exercise Education Related to Dietary Surveillance and Counseling Weight management Related to Emp hysema Increase physical activity Relat ed to Emphysema Prescribed Diet Educ ation/Lifestyle Education Regarding Diet [...] Chronic pain syndrome assessment Generalized Anxiety Disorder May assessment 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
--- NOTE | ~2025-07-14 | MM_ITS ---
EXAMINATION: MM screening jenni BI w winsome HISTORY: Screening TECHNIQUE: Craniocaudal and mediolateral oblique 3-D tomosynthesis images were obtained and synthetic 2-D images were generated. CAD analysis was submitted and interpreted. COMPARISON: Comparison to multiple prior studies sequentially, with oldest reviewed study dated 05/25/2021. BREAST PARENCHYMAL COMPOSITION: The breasts are almost entirely fatty. FINDINGS: There is no evidence of suspicious mass, calcification, or architectural distortion to suggest malignancy in either breast. IMPRESSION: 1. No mammographic evidence of malignancy. 2. Recommend routine screening mammography in one year. BI-RADS Category 1: Negative Reviewed, dictated and finalized at location B.
--- OUTSIDE RECORDS SUMMARY | 2025-07-14 15:15 | XMS_ITS | Encounter Summary ---
Author Organization [facility] Address [address] [place] [address] Care Team Providers Care Collet Making Machine Operator Name Role Phone Dave Barrios MD Primary Care Provider Encounter Details Date Type Department Care Team (Late st Contact Info) Description 06/23/2024 Telephone [facility] - Cardiac Trauma Registrar [address] [place] [id number] [place] [address] [place] [address] [place] [id number] Social History Tobacco Use Types Packs/Day Years [...] on file Legal Sex Female 2:19 PM GUT CARRIER Gender Identity Not on file Sexual Orientation [...] on filedocumented in this encounter Care Teams Collet Making Machine Operator Relationship Specialty Start Date End Date Dave Barrios MD [address] [address] PCP - General Family Medicine 11/29/15 documented as of this encounter
--- OUTSIDE RECORDS SUMMARY | 2025-07-14 15:15 | XMS_ITS | Clinical Summary ---
Author Organization [facility] Address [address] [place] [address] Care Team Providers Care Dry Chain Puller Name Role Phone Dave Barrios MD Primary Care Provider [phone] Source Comments [facility],non-owned Affiliates and Associated Physician Practices is amultiple site organization consisting of ambulatory clinics and hospital sitesin [place], [place], [place] and [place]. This disclosure is being madepursuant to the Care Everywhere program and may not contain all information available regarding this patient. Last updated 18.[facility] Allergies Active Allergy Reactions Criticality Noted Date [...] Active vitamin D, ergocalciferol, (Drisdol) 1.25 MG (29212 UT) capsule Take 1 (one) capsule by [...] Patient not taking.Reported on 07/09/2024 HYDROcodone-acetam inophen (Hospers) 7.5-325 MG tablet TAKE 1 TABLET BY MOUTH THREE TIMES A DAY NEEDED FOR PAIN. AVOID DRIVING OR OPERATING MACHINES Active oxyCODONE, immediate release, (Roxicodone) 5 MG tabletIndications: Other acute postprocedural pain TAKE ONE TABLET BY MOUTH EVERY 4 HOURS NEEDED FOR PAIN 42 tablet 06/24/20 Active Additional Information Patient not taking.Reported on 07/09/2024 methocarbamol (Robaxin) 500 MG tablet TAKE ONE TABLET BY MOUTH EVERY 6 HOURS NEEDED FOR MUSCLE SPASMS 20 tablet 06/24/20 Active Active Problems Problem Noted Date Diagnosed [...] on file Legal Sex Female 2:19 PM LEGAL INTERN Gender Identity Not on file Sexual Orientation [...] SCREENING 1962 LIPID TESTING 1962 MAMMOGRAM 1962 HIV SCREENING 1977 HEPATITIS C SCREENING 07/17/1980 DTAP/TDAP/TD VACCINES (1 - Tdap) 1981 PAP SMEAR 1983 PNEUMOCOCCAL VACCINE 50+ (1 of 1 - PCV) 2012 ZOSTER VACCINE (1 of 2) 2012 COVID-19 VACCINE (3 - season) 2024 03/08/2021, 02/15/2021 DEPRESSION SCREENING 11/19/2024 06/18/2024 MEDICARE AWV CALENDAR YEAR 2024 INFLUENZA VACCINE (#1) 2025 3, 09/22/2020, 09/10/2018, Additional history exists SCREENING FOR DIABETES 06/24/2027 4, 06/24/2024, 06/24/2024, Additional history exists Respiratory Syncytial Virus (RSV) Vaccine Pt: or over 60 yrs (1 - 1-dose 75+ series) 2037 HEPATITIS B VACCINE Aged Out No longe [...] this topic Medical Devices Implanted Type Area Cable Engineer Outside Plant Device Identifier Shelf Expiration Date Model / Serial / Lot Graft Bone Ntr Ac Cnxs Dbm 1ml Ptty Syr - [id number] Implanted:Qty: 1 on 06/23/2024 by Donnell Rivera MD at [facility] Left: Clavicle [employer] 05/16/2025 [id number] / [id number] / [id number] [employer] 2.7mm Inferior Distal Clavicle Plate Implanted:Qty: 1 on 06/23/2024 by Donnell Rivera MD at [facility] Left: Clavicle [employer] [id number] / / Screw 2.7mm 4.5mm 11mm T8 Drvr 2 End Drl Implanted:Qty: 2 on 06/23/2024 by Donnell Rivera MD at [facility] Left: Clavicle [employer] [id number] / / Screw 2.7mm 4.5mm 13mm T8 Drvr 2 End Drl Implanted:Qty: 1 on 06/23/2024 by Donnell Rivera MD at [facility] Left: Clavicle [employer] [id number] / / Screw 2.7mm 4.5mm 14mm T7 Slfret Scrdrvr Implanted:Qty: 1 on 06/23/2024 by Donnell Rivera MD at [facility] Left: Clavicle [employer] [id number] / / Screw 2.7mm 4.5mm 18mm T8 Slf-Tap Cortx Implanted:Qty: 3 on 06/23/2024 by Donnell Rivera MD at [facility] Left: Clavicle [employer] [id number] / / Screw 4mm 4.5mm 22mm T8 Ft Slfret Implanted:Qty: 1 on 06/23/2024 by Donnell Rivera MD at [facility] Left: Clavicle [employer] [id number] / / Screw 2.7mm 4.5mm 10mm T8 Slf-Tap Cortx Implanted:Qty: 1 on 06/23/2024 by Donnell Rivera MD at [facility] Left: Clavicle [employer] [id number] / / Screw 2.7mm 4.5mm 17mm T8 Slf-Tap Cortx Implanted:Qty: 1 on 06/23/2024 by Donnell Rivera MD at [facility] Left: Clavicle [employer] [id number] / / Explanted Type Area Cable Engineer Outside Plant Device Identifier Shelf Expiration Date Model / Serial / Lot Screw 2.7mm 4.5mm 14mm T7 Slfret Scrdrvr Explanted:Qty: 1 on 06/23/2024 at [facility] Left: Clavicle [employer] [id number] / / Procedures Procedure Name Priority Date/Time Associated Diagnosis Comments BASIC METABOLIC PANEL (CALCIUM TOTAL) AM Draw 06/24/2024 9:59 AM CDT from Last 3 Months or Most Recently Relevant to Health Maintenance Results * (ABNORMAL) BASIC METABOLIC PANEL (CALCIUM TOTAL) (06/24/2024 9:59 AM [facility]) BUN 17 7 - 26 mg/dL 06/24/2024 10:34 AM [facility] Creatinine 0.63 0.56 - 0.96 mg/dL 06/24/2024 10:34 AM [facility] Sodium 140 136 - 145 mmol/L 06/24/2024 10:34 AM [facility] Potassium 3.4(L) 3.5 - 4.5 mmol/L 06/24/2024 10:34 AM [facility] Chloride 106 98 - 107 mmol/L 06/24/2024 10:34 AM [facility] CO2 23 22 - 29 mmol/L 06/24/2024 10:34 AM [facility] Glucose 145(H) 70 - 115 mg/dL 06/24/2024 10:34 AM [facility] Calcium 8.9 8.4 - 10.2 mg/dL 06/24/2024 10:34 AM [facility] Anion Gap 11 6 - 16 06/24/2024 10:34 AM [facility] BUN/Creatinine Ratio 27(H) 7 - 23 06/24/2024 10:34 AM [facility] Osmolality Calculated 294 275 - 295 mOsm/kg 06/24/2024 10:34 AM [facility] eGFR by CKD-EPI >90 >=90 mL/min/1.7 3 m2 06/24/2024 10:34 AM [facility] Blood BLOOD SPECIMEN / Unknown Lab Venipuncture / Unknown 06/24/2024 9:59 AM T 06/24/2024 10:09 AM [facility] us Donnell Rivera MD LAB - CHEMISTRY ORDERABLES Nicole cohen Result [facility] [address] [place] [address], [facility] [phone] from Last 3 Months or Most Recently Relevant to Health Maintenance Insurance MEDICAID - [facility] MEDICARE [facility] MANAGED MEDICARE ADV MEDICAID - [place] [facility] MANAGED MEDICARE ADV SELF PAY NO INSURANCE Member Subscriber Plan / Payer (Ef fective for All Dates) Name:Naveen Paulson Viet Member ID:Not on file Relation to Subscriber:Not on file Name:NAVEEN PAULSON Viet Subscriber ID:Not on file (Home) Address: [address] [place] [id number] Payer ID:Not on file Group ID:Not on file Type:Self Pay Address: [place], [place] [facility] THIRD REPUBLICAN LIABILITY [facility] MANAGED MEDICARE ADV MEDICAID [facility] THIRD REPUBLICAN LIABILITY Care Teams Dry Chain Puller Relationship Specialty Start Date End Date Dave Barrios MD [address] [facility] [address] [place] [address] PCP - General Family Medicine 11/29/15
--- OUTSIDE RECORDS SUMMARY | 2025-07-14 15:15 | XMS_ITS | Clinical Summary ---
Author Organization [facility] Address [address] [facility] [place] [address] Care Team Providers Care Service Operations Manager Name Role Phone Dave Barrios MD Primary Care Provider [phone] Allergies No known active allergies Medications alendronate [...] Comments Blood Pressure 122/71 01/02/2023 11:05 AM DIRECTOR RECREATION Pulse 61 01/02/2023 11:05 AM DIRECTOR RECREATION Temperature 36.8 C (98.3 F) 01/02/2023 11:05 AM DIRECTOR RECREATION Respiratory Rate 16 01/02/2023 11:05 AM DIRECTOR RECREATION Oxygen Saturation 99% 01/02/2023 11:05 AM DIRECTOR RECREATION Inhaled Oxygen Concentration - - Weight 64 kg (141 lb 1.6 oz) 01/02/2023 11:05 AM DIRECTOR RECREATION Height 157.5 cm (5' 2) 12/14/2022 1:22 PM DIRECTOR RECREATION Body Mass Index 25.81 12/14/2022 1:22 PM DIRECTOR RECREATION Plan of Treatment Health Maintenance Due Date [...] (1 of 2) 2012 INFLUENZA VACCINE (#1) 2025 RSV VACCINE (60+ or ) (1 - 1-dose 75+ series) 2037 Insurance [facility] [id number] [id number] Care Teams Service Operations Manager Relationship Specialty Start Date End Date Dave Barrios MD [address] [place] [address] PCP - General Family Practice 12/14/22
--- OUTSIDE RECORDS SUMMARY | 2025-07-14 15:15 | XMS_ITS | Clinical Summary ---
Author Organization [facility] Address [address] [place] [address] Care Team Providers Care Contractor [employer] Name Role Phone Dave Barrios MD Primary Care Provider Allergies Active Allergy Reactions Criticality Noted Date Comments Codeine Itching Low 06/24/2025 Medications rosuvastatin (CRESTOR) 10 mg tablet Take 1 tablet (10 mg total) by mouth daily 2 Active levothyroxine (SYNTHROID) 100 mcg tablet Take 1 tablet (100 mcg total) by mouth daily Active levothyroxine (SYNTHROID) 88 mcg tablet Take 1 tablet (88 mcg total) by mouth daily 3 Active HYDROcodone-mary taminophen (NORCO) 7.5-325 mg per tablet TAKE 1 TABLET BY MOUTH THREE TIMES A DAY NEEDED FOR PAIN. *AVOID DRIVING OR OPERATING MACHINES* 3 Active Lyrica 75 mg capsule Take 1 capsule (75 mg total) by mouth every 12 hours 5 Active sertraline (ZOLOFT) 50 mg tablet Take 1 tablet (50 mg total) by mouth daily 5 Active busPIRone (BUSPAR) 15 mg tablet Take 1 tablet (15 mg total) by mouth every 12 hours 5 Active Breztri Aerosphere 160-9-4.8 mcg/actuation inhaler TAKE 2 PUFFS BY MOUTH TWICE A DAY IN THE MORNING AND IN THE EVENING Active albuterol HFA (PROVENTIL HFA,VENTOLIN HFA,PROAIR HFA) 90 mcg/actuation inhaler INHALE 1 PUFF BY MOUTH EVERY 4 - 6 HOURS NEEDED FOR SHORTNESS OF BREATH 7 Active Active Problems Problem Noted Date Diagnosed Date Symptomatic reticular veins 06/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 Follow-up at that time for re-evaluation with a venous reflux. Encounters Date Type Department Care Team Description 06/24/2025 8:30 AM CDT Office Visit [facility] at [address] [address] Shyann Youssef NP Symptomatic reticular veins (Primary Dx); Varicose veins of lower extremity with inflammation, unspecified laterality 06/24/2025 Orders Only [facility] at [address] [address] Oliver Nagel MD Varicose veins of lower extremity with pain, bilateral (Primary Dx) from Last 3 Months Social History Tobacco Use Types Packs/Day Years Used Date Smoking Tobacco: Never Assessed Comments Unknown Sex and Gender Information Value Date Recorded Sex Assigned at Not on file Legal Sex Female 1:45 PM CDT Gender Identity Not on file Sexual Orientation Not on file Last Filed Vital Signs Vital Sign Reading Time Taken Comments Blood Pressure 108/70 06/24/2025 8:15 AM CDT Pulse 69 06/24/2025 8:15 AM CDT Temperature - - Respiratory Rate - - Oxygen Saturation 97% 06/24/2025 8:15 AM CDT Inhaled Oxygen Concentration - - Weight 72.6 kg (160 lb) 06/24/2025 8:15 AM CDT Height 160 cm (5' 3) 06/24/2025 8:15 AM CDT Body Mass Index 28.34 06/24/2025 8:15 AM CDT Plan of Treatment Health Maintenance Due Date Last Done Comments Breast Cancer Screening-Mammogram 1962 Cervical Cancer Screening 1962 Colon Cancer Screening-Colonoscopy 1962 Depression Screening 1962 Hepatitis C Screening 1962 Hepatitis B Screening 1980 Regular Well Visit/Exam 18-64 1980 Pneumococcal vaccine <65 (1 of 2 - PCV) 1981 Zoster Vaccine (1 of 2) 2012 Covid-19 Vaccine ( season) 2024, 02/15/2021 Influenza Vaccine (#1) 2025 , 09/22/2020, 09/10/2018 DTaP/Tdap/Td Vaccine (3 - Td or Tdap) 02/06/2033, 09/10/2018 Insurance Care Teams Contractor [employer] Relationship Specialty Start Date End Date Dave Barrios MD [address] [place] [address] PCP - General Family Medicine 06/05/25
== END 2025-07-14 15:12 | disposition home or self-care (01) ==
LOC: ANHFOHIMG 15:12
PROVIDERS: PCP Emergency Medicine; Visit Provider Emergency Medicine
DX: Z12.31 Encounter for screening mammogram for malignant neoplasm of breast (principal)
CPT/HCPCS: 77063; 77067